=== PATIENT | female | born 1995 | race Two or more races ===

== ENCOUNTER 2022-02-28 00:49 | Emergency (ER) | payer OTHER, SELFPAY ==
--- NOTE | ~2022-02-28 | CT_ITS ---
EXAMINATION: CT ABDOMEN AND PELVIS WITHOUT CONTRAST CLINICAL INFORMATION: Left flank pain COMPARISON: 03/25/2017 TECHNIQUE: Multidetector volumetric imaging was performed from the superior aspect of the liver through the pubic symphysis. Sagittal and coronal reformatted images were obtained on the technologist's workstation. This CT examination was performed using dose optimization techniques as appropriate, variously including the following: *Automated exposure control *Adjustment of mA and/or kV according to patient size (this includes techniques or standardized protocols for targeted exams where dose is matched to indication/reason for exam; i.e. extremities or head) *Use of iterative reconstruction technique DLP: 616 mGy-cm FINDINGS: LUNG BASES: The visualized lung bases are unremarkable. LIVER, GALLBLADDER, AND BILIARY TREE: The liver is normal in size, shape, and attenuation. No focal hepatic lesion or biliary ductal dilatation is present. Cholecystectomy. PANCREAS: Unremarkable. SPLEEN: Unremarkable. ADRENAL GLANDS: Unremarkable. KIDNEYS AND URETERS: The kidneys are normal in size, shape, and attenuation. No hydronephrosis or hydroureter. Multiple bilateral nonobstructive intrarenal calculi redemonstrated numbering at least 3 within the left kidney and fall within the right kidney ranging in size from punctate to 2 mm.. No perinephric stranding. BLADDER: Unremarkable. GASTROINTESTINAL TRACT: The small and large bowel are unremarkable. Appendectomy. ABDOMINAL WALL: No significant hernia is appreciated. LYMPH NODES: Normal. VASCULAR: Unremarkable. PELVIC VISCERA: Uterus and ovaries unremarkable. OSSEOUS STRUCTURES: No acute or suspicious osseous abnormalities. CT/CT abdomen pelvis wo IV con IMPRESSION: * No acute findings within the abdomen or pelvis to explain the patient's symptomatology. * Bilateral nonobstructive intrarenal calculi, however no ureteral calculi or hydronephrosis. * Cholecystectomy and appendectomy.
[2022-02-28 01:05] VITALS: BP 120/73; PULSE 76; RESP 20; TEMP 36.8; O2SAT 98; BMI 31.7
[2022-02-28 03:18] LABS: Basophils Percent Auto 0.3 % (0-2); Eosinophils Percent Auto 0.3 % (0-4); Hematocrit 37.8 % (37.0-47.0); Hemoglobin 12.4 g/dl (12.0-16.0); Imm Gran Abs Auto 0.02 X10*3/uL (0.00-0.03); Imm Gran Pct Auto 0.2 % (0.0-0.4); Lymphocytes Absolute Auto 1.2 X10*3/uL (1.2-4.9); Lymphocytes Percent Auto 12.8 % (20-40); MANUAL DIFF FLAG NO; Mean Corpuscular HGB Conc 32.8 g/dl (31.0-35.0); Mean Corpuscular Hemoglobin 28.9 pg (27.0-33.0); Mean Corpuscular Volume 88.1 fL (80.0-98.0); Mean Platelet Volume 9.2 fL (9.4-12.3); Monocytes Absolute Auto 0.4 X10*3/uL (0.1-1.2); Monocytes Percent Auto 4.6 % (2-11); Neutrophils Absolute Auto 7.7 x10*3/uL (2.0-8.3); Neutrophils Percent Auto 81.8 % (45-73); Platelet Count 319 X10*3/uL (160-400); Red Blood Count 4.29 X10*6/uL (4.20-5.50); Red Cell Distribution Width 12.6 % (11.0-16.0); White Blood Count 9.4 X10*3/uL (4.8-10.8)
[2022-02-28 03:20] LABS: Appearance Urine Cloudy; Color Urine Yellow; Glucose Urine UA Negative (Negative); Leukocyte Esterase Urine Moderate (2+) (Negative); Nitrite Urine Negative (Negative); Specific Gravity - Urine 1.025 (1.005-1.025); UMIC TRIGGER UACC YES; Urine Blood Large (3+) (Negative); Urine Ketones Negative (Negative); Urine Protein 100 (2+) mg/dL (Neg-Trace)
[2022-02-28 03:21] LABS: UPreg QC Valid YES; Urine Pregnancy NEGATIVE (NEGATIVE)
[2022-02-28 03:25] LABS: Bacteria Urine 4+ (None Seen); UACC Culture Trigger YES; WBC Urine 21-50 /HPF (0-5)
[2022-02-28 03:31] LABS: Anion Gap 12 (12-20); Blood Urea Nitrogen 12 mg/dL (9-16); Calcium 9.3 mg/dL (8.4-10.2); Carbon Dioxide 24 mmol/L (22-29); Chloride 106 mmol/L (96-108); Creatinine Clr Calc Pharmacy 96.2; Estimated Glomerular Filt Rate > 60; Glucose Random 121 mg/dL (60-115); Potassium 3.7 mmol/L (3.3-5.1); Sodium 138 mmol/L (135-145)
[2022-02-28 04:03] VITALS: BP 120/75; PULSE 87; RESP 16; TEMP 36.9; O2SAT 99
--- NOTE | 2022-02-28 04:20 | ED_ITS ---
HPI - Female Genitourinary General Chief complaint: Urogenital-Female Stated complaint: Flank pain/?Kidney stones Time Seen by Provider: 02/28/22 03:59 Source: patient Mode of arrival: ambulatory Limitations: no limitations History of Present Illness HPI Narrative: 26-year-old female history of kidney stone came in for evaluation of left flank pain since yesterday, that is constant and severe 10/10 localized to the left flank area radiates down to the left groin area, associated with nausea, no relieving factor, no aggravating factor. Patient had similar pain when she had a kidney stone, patient never needed surgical intervention for kidney stones in the past. Surgical history is significant for appendectomy and cholecystectomy. Related Data Previous Rx's Medication Instructions Recorded levofloxacin 750 mg tablet 750 mg PO DAILY #10 tabs 02/28/22 phenazopyridine 100 mg tablet 100 mg PO TID #6 tabs 02/28/22 (Pyridium) Allergies Allergy/AdvReac Type Severity Reaction Status Date / Time nitrofurantoin Allergy Unknown RASH Verified 02/28/22 01:09 [From MACROBID] macrobid Allergy Unknown Rash Uncoded 02/28/22 01:09 Review of Systems Review of Systems: All other systems are reviewed and are negative Constitutional: Reports as per HPI and Reports no additional constitutional complaints Eyes: Reports as per HPI and Reports no additional eye complaints Reports system reviewed and no additional complaints, except as documented Cardiovascular: Reports as per HPI and Reports no additional cardiovascular complaints Respiratory: Reports as per HPI and Reports no additional respiratory complaints Gastrointestinal: Reports as per HPI and Reports no additional gastrointestinal complaints Genitourinary: Reports no additional female genitourinary complaints Musculoskeletal: Reports no additional musculoskeletal complaints Skin/Breast: Reports system reviewed and no additional complaints, except as docu Psychiatric: Reports no additional psychiatric complaints Endocrine: Reports no additional endocrine complaints Hematologic/Lymphatic: Reports no additional hematologic/lymphatic complaints Allergic/Immunologic: Reports no additional allergic/immunologic complaints Reports system reviewed and no additional complaints, except as documented and Reports Abnormal speech present [facility] Social History Social History Advance Directives: No Advance Directives Information Provided: No Physical Exam Vital Signs: Vital Signs: Last Vital Signs Temp 98.4 F 02/28/22 04:03 Pulse 87 02/28/22 04:03 Resp 16 02/28/22 04:03 BP 120/75 02/28/22 04:03 Pulse Ox 99 02/28/22 04:03 O2 Del Method 02/28/22 04:03 BMI result Body Mass Index 31.7 Vital signs have been reviewed as appeared to be correct. Blood pressure normal. Heart rate normal. Respiration rate normal. Temperature normal. O xygen saturation normal. Appearance: Alert. Oriented X3. No acute distress. Head: Normal external exam. Normocephalic. Atraumatic. No Dejesus signs noted. No raccoon eyes noted Eyes: PERRLA. EOMI. Conjunctiva and sclera normal. Eyelids normal. ENT: TM's Normal. Pharynx normal. Uvula midline. Moist mucous membranes. No trismus noted. No drooling noted. No muffled voice noted. Neck: Normal inspection. Neck supple. FROM. No adenopathy. Thyroid Normal. No meningeal signs. No neck mass noted. CVS: Normal heart rate and rhythm. Heart sound normal. No murmurs noted. Pulses normal throughout. Respiratory: No respiratory distress. Painless inspiration. Breath sounds normal. No wheezes/rales/rhonchi noted. Chest nontender. No accessory muscle usage noted or decreased air movement noted. Abdomen: Soft and nontender. Bowel sounds normal in all 4 quadrants. No dis tention noted. No organomegaly noted. No visible injury noted. Back: Left CVA tenderness. Full range of motion noted. Skin: Skin warm and dry. Normal skin color. Normal skin turgor. No rashes/l esions/lacerations noted. Extremities: No lower extremity edema. Extremities exhibit normal range of motion. Extremities nontender. Neuro: Oriented X 3. Cranial nerve exam: II-XII are grossly intact No motor deficit. No sensory deficit. Reflexes normal. Course Course Course Narrative: 26-year-old female came in with left flank pain, no fever or chills, CT showing no kidney stones UA is revealing UTI patient with pyelonephritis will start the patient on Levaquin/by medium and instructed to drink plenty of fluid and follow-up with PCP. Medications Administered Discontinued Medications Generic Name Dose Route Start Last Admin Trade Name Freq PRN Reason Stop Dose Admin Sodium Chloride 1,000 mls @ 999 mls/hr 02/28/22 04:19 02/28/22 04:59 Ns IV 02/28/22 05:19 999 mls/hr .Q1H1M ONE Administration Ketorolac Tromethamine 30 mg 02/28/22 04:19 02/28/22 04:59 Ketorolac Tromethamine 30 Mg/Ml Vial IVPUSH 02/28/22 04:20 30 mg ONCE ONE Administration Morphine Sulfate 2 mg 02/28/22 04:19 02/28/22 04:59 Morphine Sulfate 2 Mg/Ml Cartridge IVPUSH 02/28/22 04:20 2 mg ONCE ONE Administration Protocol Ondansetron HCl 4 mg 02/28/22 04:19 02/28/22 04:59 Ondansetron Hcl 4 Mg/2 Ml Vial IVPUSH 02/28/22 04:20 4 mg ONCE ONE Administration Medical Decision Making Differential Diagnosis Differential Diagnoses: The differential diagnosis associated with the presentation includes (Nephrolithiasis/renal colic/pyelonephritis.) Lab Data MDM Lab Attestation statement: I reviewed the patient's lab results. Result Diagrams: 02/28/22 03:13 02/28/22 03:13 Labs: Lab Results 02/28/22 02/28/22 02/28/22 Range/Units 03:13 03:13 03:13 WBC 9.4 (4.8-10.8) X10*3/uL RBC 4.29 (4.20-5.50) X10*6/uL Hgb 12.4 (12.0-16.0) g/dl Hct 37.8 (37.0-47.0) % MCV 88.1 (80.0-98.0) fL MCH 28.9 (27.0-33.0) pg MCHC 32.8 (31.0-35.0) g/dl RDW 12.6 (11.0-16.0) % Plt Count 319 (160-400) X10*3/uL MPV 9.2 L (9.4-12.3) fL Immature Gran % (Auto) 0.2 (0.0-0.4) % Neut % (Auto) 81.8 H (45-73) % Lymph % (Auto) 12.8 L (20-40) % [place] % (Auto) 4.6 (2-11) % Eos % (Auto) 0.3 (0-4) % Baso % (Auto) 0.3 (0-2) % Lymph # (Auto) 1.2 (1.2-4.9) X10*3/uL [place] # (Auto) 0.4 (0.1-1.2) X10*3/uL Eos # (Auto) 0.0 (0.0-0.4) X10*3/uL Baso # (Auto) 0.0 (0.0-0.2) X10*3/uL Abs Immat Gran (auto) 0.02 (0.00-0.03) X10*3/uL Absolute Neuts (auto) 7.7 (2.0-8.3) x10*3/uL Absolute Nucleated RBC 0.000 (0.0-0.012) X10*3/uL Nucleated RBC % (auto) 0.0 (0.0-0.2) /100WBC Sodium 138 (135-145) mmol/L Potassium 3.7 (3.3-5.1) mmol/L Chloride 106 (96-108) mmol/L Carbon Dioxide 24 (22-29) mmol/L Anion Gap 12 (12-20) BUN 12 (9-16) mg/dL Creatinine 0.82 (0.5-1.4) mg/dL Estim Creat Clear Calc 96.2 Estimated GFR > 60 Random Glucose 121 H (60-115) mg/dL Calcium 9.3 (8.4-10.2) mg/dL Urine Color Yellow Urine Appearance Cloudy Urine pH 6.0 (5.0-9.0) Ur Specific [place] 1.025 (1.005-1.025) Urine Protein 100 (2+) H (Neg-Trace) mg/dL Urine Glucose (UA) Negative (Negative) mg/dL Urine Ketones Negative (Negative) mg/dL Urine Blood Large (3+) H (Negative) Urine Nitrite Negative (Negative) Ur Leukocyte Esterase Moderate (2+) H (Negative) Urine RBC 6-10 H (0-2) /HPF Urine WBC 21-50 H (0-5) /HPF Ur Squamous Epith Cells 11-20 (0-2) /HPF Urine Bacteria 4+ (None Seen) Hyaline Casts 3-5 (0-2) /LPF Urine Test (NEGATIVE) 02/28/22 Range/Units 03:13 WBC (4.8-10.8) X10*3/uL RBC (4.20-5.50) X10*6/uL Hgb (12.0-16.0) g/dl Hct (37.0-47.0) % MCV (80.0-98.0) fL MCH (27.0-33.0) pg MCHC (31.0-35.0) g/dl RDW (11.0-16.0) % Plt Count (160-400) X10*3/uL MPV (9.4-12.3) fL Immature Gran % (Auto) (0.0-0.4) % Neut % (Auto) (45-73) % Lymph % (Auto) (20-40) % [place] % (Auto) (2-11) % Eos % (Auto) (0-4) % Baso % (Auto) (0-2) % Lymph # (Auto) (1.2-4.9) X10*3/uL [place] # (Auto) (0.1-1.2) X10*3/uL Eos # (Auto) (0.0-0.4) X10*3/uL Baso # (Auto) (0.0-0.2) X10*3/uL Abs Immat Gran (auto) (0.00-0.03) X10*3/uL Absolute Neuts (auto) (2.0-8.3) x10*3/uL Absolute Nucleated RBC (0.0-0.012) X10*3/uL Nucleated RBC % (auto) (0.0-0.2) /100WBC Sodium (135-145) mmol/L Potassium (3.3-5.1) mmol/L Chloride (96-108) mmol/L Carbon Dioxide (22-29) mmol/L Anion Gap (12-20) BUN (9-16) mg/dL Creatinine (0.5-1.4) mg/dL Estim Creat Clear Calc Estimated GFR Random Glucose (60-115) mg/dL Calcium (8.4-10.2) mg/dL Urine Color Urine Appearance Urine pH (5.0-9.0) Ur Specific [place] (1.005-1.025) Urine Protein (Neg-Trace) mg/dL Urine Glucose (UA) (Negative) mg/dL Urine Ketones (Negative) mg/dL Urine Blood (Negative) Urine Nitrite (Negative) Ur Leukocyte Esterase (Negative) Urine RBC (0-2) /HPF Urine WBC (0-5) /HPF Ur Squamous Epith Cells (0-2) /HPF Urine Bacteria (None Seen) Hyaline Casts (0-2) /LPF Urine Test NEGATIVE (NEGATIVE) Independent Interpretation I performed an independent interpretation of an: CT Scan (Abdomen and pelvis: No acute pathology.) Radiology Impression Discussion of test interpretation with radiology: I have reviewed the radiologist's reading. Discharge Plan Discharge Clinical Impression: Urinary tract infection, Pyelonephritis Patient Disposition: Home, Self-Care Instructions: Urinary Tract Infection in Women (ED) Additional Instructions: Drink plenty of fluids Prescriptions: New levofloxacin 750 mg tablet 750 mg PO DAILY Qty: 10 0RF phenazopyridine [Pyridium] 100 mg tablet 100 mg PO TID Qty: 6 0RF
[2022-02-28] MEDS: ondansetron HCL 4 MG/2 ML VIAL IVPUSH (04:59)
[2022-02-28] MEDS: Morphine Sulfate 2 MG/ML CARTRIDGE IVPUSH (04:59)
[2022-02-28] MEDS: 0.9 % Sodium Chloride 1,000 ML 999 ML IV (04:59)
[2022-02-28] MEDS: Ketorolac Tromethamine 30 MG/ML VIAL IVPUSH ×2 (04:59→06:45)
[2022-02-28 06:17] VITALS: BP 118/60; PULSE 80; RESP 16; TEMP 37.1; O2SAT 98
== END 2022-02-28 06:48 | disposition home or self-care (01) ==
PROVIDERS: Emergency Provider Emergency Medicine
DX: N39.0 Urinary tract infection, site not specified (principal); N10 Acute pyelonephritis; Z79.899 Other long term (current) drug therapy
CPT/HCPCS: 36415; 74176; 80048; 81001; 81025; 85025; 87086; 96374; 96375; 96376; 99284; J1885; J2270; J2405

== ENCOUNTER 2023-01-15 14:12 | Outpatient (AMB) | payer MEDICAID, SELFPAY ==
--- NOTE | 2023-01-15 14:30 | MHC.OFFVIS ---
Intake Intake Visit Reasons: nephrolithiasis Intake Note: NEW Patient presents today to established treatment for Nephrolithiasis: Meds- None Allergies to Antibiotic- Macrobid Blood Thinner- None Ship Pilot Required: No Accompanied by: Self / Same As Patient Allergies nitrofurantoin [From MACROBID] Allergy (Unknown, Verified 01/21/23 07:41) RASH macrobid Allergy (Unknown, Uncoded 01/15/23 14:53) Rash Medication List - Last Reconciled 01/15/23 by Rohan Langford MD naproxen 500 mg PO BID oxycodone-acetaminophen 5-325 mg (Percocet) 1 tab PO .q6-q8h PRN tamsulosin (Flomax) 0.4 mg PO DAILY HPI HPI Comments History of Present Illness Details Shira is a 27-year-old female who presents today to the office to establish as a new patient for an evaluation of nephrolithiasis. 01/15/2023-- She is here today for an evaluation of kidney stones. I reviewed the CAT scan of the abdomen/pelvis results from 02/28/2022 revealed bilateral non obstructive intrarenal calculi; no hydronephrosis; stone size punctuate upto 2 mm. She states that she is consuming adequate amount of fluids. Patient states that she went to ER at [facility] when she was having left flank pain and they told that she was passing the stones. A CAT scan and US was done at that time and they told to follow-up [facility] urology at that time. Patient states that she started getting kidney stones at age 12. She has a family history of kidney stones in her father. I will obtain the imaging through the office staff to review. Plan: Diet modification . Diet sheet was given to the patient. 24-hour collection was ordered. Ordered Percocet 5.325 mg 6 tablets. Flomax 0.4 mg 30 tablets was ordered. Naproxen 500 mg 20 tablets was ordered. Review of Systems Const All systems reviewed & are unremarkable except as noted in HPI and below Reports no additional complaints Eyes Reports no additional complaints ENT Reports no additional complaints Card Denies dyspnea Resp Denies cough and Denies dyspnea GI Reports no additional complaints Reports no additional complaints Musc Reports no additional complaints Skin/Breast Denies rash and Denies unusual bruising Neuro Reports no additional complaints Psych Reports no additional complaints Endo Reports no additional complaints Javier/Lymph Reports no additional complaints Aller/Immun Reports no additional complaints Physical Exam Const General: cooperative, healthy appearing and no acute distress Orientation/consciousness: patient oriented x3 HEENT Head: Yes normal to inspection, Yes normocephalic and Yes atraumatic Eyes Conjunctivae: conjunctivae normal Neck Neck: Yes normal visual inspection and Yes trachea midline Chest Chest palpation & inspection: normal inspection of the chest Resp Effort & Inspection: normal respiratory effort Cardio Rate: regular rate GI Inspection: Yes normal to inspection Skin General skin exam: no rashes or lesions noted Neuro General: patient oriented x3 Extrem General: No edema Psych Appearance: grossly normal Results AMB Urinalysis, Automated UA Leukoctes 0 Kevon/uL Last Edit by OSCAR Acosta on 01/15/23 15:07 UA Nitrite Negative Last Edit by Sandra Azul Daniel on 01/15/23 15:07 UA Urobilinogen 0.2 mg/dL Last Edit by OSCAR Acosta on 01/15/23 15:07 UA Protein 15 mg/dL Last Edit by Sandra Azul Daniel on 01/15/23 15:07 UA pH 7.5 Last Edit by OSCAR Acosta on 01/15/23 15:07 UA Blood 0 Yefri/uL Last Edit by Sandra Azul Daniel on 01/15/23 15:07 UA Specific [place] 1.015 Last Edit by Sandra Azul Daniel on 01/15/23 15:07 UA Ketone Negative Last Edit by OSCAR Acosta on 01/15/23 15:07 UA Bilirubin 0 mg/dL Last Edit by Sandra Azul [facility] on 01/15/23 15:07 UA Glucose 0 mg/dL Last Edit by Sandra Azul Daniel on 01/15/23 15:07 Results Reviewed Results Reviewed: Laboratory Last Values Urine pH (Auto) 7.5 01/15/23 15:06 Specific [place] (Auto) 1.015 01/15/23 15:06 Urine Protein (Auto) 15 mg/dL 01/15/23 15:06 Glucose (UA)(Auto) 0 mg/dL 01/15/23 15:06 Urine Ketones (Auto) Negative 01/15/23 15:06 Urine Blood (Auto) 0 Yefri/uL 01/15/23 15:06 Urine Nitrite (Auto) Negative 01/15/23 15:06 Urine Bilirubin (Auto) 0 mg/dL 01/15/23 15:06 Urine Urobilinogen (Auto) 0.2 mg/dL 01/15/23 15:06 Leukocyte Esterase (Auto) 0 Kevon/uL 01/15/23 15:06 Date of Service: 02/28/22 EXAMINATION: CT ABDOMEN AND PELVIS WITHOUT CONTRAST CLINICAL INFORMATION: Left flank pain COMPARISON: 03/25/2017 FINDINGS: LUNG BASES: The visualized lung bases are unremarkable. LIVER, GALLBLADDER, AND BILIARY TREE: The liver is normal in size, shape, and attenuation. No focal hepatic lesion or biliary ductal dilatation is present. Cholecystectomy. PANCREAS: Unremarkable. SPLEEN: Unremarkable. ADRENAL GLANDS: Unremarkable. KIDNEYS AND URETERS: The kidneys are normal in size, shape, and attenuation. No hydronephrosis or hydroureter. Multiple bilateral nonobstructive intrarenal calculi redemonstrated numbering at least 3 within the left kidney and fall within the right kidney ranging in size from punctate to 2 mm.. No perinephric stranding. BLADDER: Unremarkable. GASTROINTESTINAL TRACT: The small and large bowel are unremarkable. Appendectomy. ABDOMINAL WALL: No significant hernia is appreciated. LYMPH NODES: Normal. VASCULAR: Unremarkable. PELVIC VISCERA: Uterus and ovaries unremarkable. OSSEOUS STRUCTURES: No acute or suspicious osseous abnormalities. IMPRESSION: * No acute findings within the abdomen or pelvis to explain the patient's symptomatology. * Bilateral nonobstructive intrarenal calculi, however no ureteral calculi or hydronephrosis. * Cholecystectomy and appendectomy Assessment & Plan Assessment & Plan (1) Nephrolithiasis: Code(s): N20.0 - Calculus of kidney (2) Left flank pain: Code(s): R10.9 - Unspecified abdominal pain (3) Renal colic: Code(s): N23 - Unspecified renal colic Plan Diet modification . Diet sheet was given to the patient. 24-hour collection was ordered. Ordered Percocet 5.325 mg 6 tablets. Flomax 0.4 mg 30 tablets was ordered. Naproxen 500 mg 20 tablets was ordered. Orders: Orders AMB Urinalysis Automated 01/15/23 Z13.9 - Encounter for screening, unspecified Medications: New oxycodone-acetaminophen 5-325 mg (Percocet) Partial Fill upon patient request. 1 tab PO .q6-q8h PRN 6 tabs 0RF pain tamsulosin (Flomax) 0.4 mg PO DAILY 30 caps 0RF to help pass stones naproxen 500 mg PO BID 20 tabs 1RF pain Patient Instructions: The patient had an opportunity to ask questions regarding treatment plan. All questions were answered. Imaging, Laboratory studies and physical exam results were discussed and reviewed in detail. No major barriers to understanding were identified. The patient expressed understanding and agreement with the above treatment plan. The patient is aware they should contact our office by phone for worsening of their current condition or the appearance of new symptoms. Compliance is encouraged with any medications and followup testing that is ordered. It is a privilege to be allowed the opportunity to participate in the urologic care of your patient. If you have any questions or concerns regarding treatment for the above conditions please do not hesitate to contact me. The office telephone contact is [phone]. This note is constructed in part using voice recognition software. While every effort has been made to ensure accuracy green chain off bearer errors may have been included. Yours sincerely, Rohan Langford MD Coding Level of Care Code New Pt Level 4 (64593) Diagnoses Nephrolithiasis N20.0 Left flank pain R10.9 Renal colic N23
== END 2023-01-15 15:23 | disposition home or self-care (01) ==
PROVIDERS: PCP Physician Assistant; Visit Provider Urology
DX: N20.0 Calculus of kidney (principal); N23 Unspecified renal colic
CPT/HCPCS: 99204

== ENCOUNTER → 2023-01-15 14:12 | Outpatient (BNVA) | payer MEDICAID, SELFPAY | PROVIDERS: PCP Physician Assistant; Visit Provider Urology | DX: N20.0 Calculus of kidney (principal); N23 Unspecified renal colic; R10.9 Unspecified abdominal pain | CPT/HCPCS: 81003; 99202 ==

== ENCOUNTER 2023-01-21 07:36 | Emergency (ER) | payer MEDICAID, SELFPAY ==
--- NOTE | ~2023-01-21 | CT_ITS ---
EXAMINATION: CT ABDOMEN AND PELVIS WITHOUT CONTRAST CLINICAL INFORMATION: Left-sided pain. COMPARISON: None available. TECHNIQUE: Multidetector volumetric imaging was performed from the superior aspect of the liver through the pubic symphysis. Sagittal and coronal reformatted images were obtained on the technologist's workstation. This CT examination was performed using dose optimization techniques as appropriate, variously including the following: *Automated exposure control *Adjustment of mA and/or kV according to patient size (this includes techniques or standardized protocols for targeted exams where dose is matched to indication/reason for exam; i.e. extremities or head) *Use of iterative reconstruction technique DLP: 596 mGy-cm FINDINGS: LUNG BASES: The visualized lung bases are unremarkable. LIVER, GALLBLADDER, AND BILIARY TREE: The liver is normal in size, shape, and attenuation. No focal hepatic lesion or biliary ductal dilatation is present. There has been a prior cholecystectomy. PANCREAS: Unremarkable. SPLEEN: Unremarkable. ADRENAL GLANDS: Unremarkable. KIDNEYS AND URETERS: There are multiple scattered left renal calculi measuring up to 4 mm mid pole left kidney. There is also a 2 mm right lower pole renal calculus. There is no hydronephrosis or hydroureter. BLADDER: Unremarkable. GASTROINTESTINAL TRACT: The small and large bowel are unremarkable. The appendix is not identified. Surgical clips along the base of the cecum probably related to prior appendectomy. ABDOMINAL WALL: No significant hernia is appreciated. LYMPH NODES: Normal. VASCULAR: Unremarkable. PELVIC VISCERA: Unremarkable. OSSEOUS STRUCTURES: Unremarkable. CT/CT abdomen pelvis wo IV con IMPRESSION: Bilateral nonobstructing renal calculi. No current evidence for hydronephrosis or hydroureter. Fleischner guidelines were followed.
[2023-01-21 07:41] VITALS: BP 142/89; PULSE 89; RESP 18; TEMP 36.4; O2SAT 96; BMI 35.3
[2023-01-21 07:59] LABS: MANUAL DIFF FLAG NO
[2023-01-21 08:03] LABS: Basophils Percent Auto 0.5 % (0-2); Eosinophils Absolute Auto 0.1 X10*3/uL (0.0-0.4); Eosinophils Percent Auto 1.1 % (0-4); Hematocrit 37.4 % (37.0-47.0); Hemoglobin 12.4 g/dl (12.0-16.0); Imm Gran Abs Auto 0.03 X10*3/uL (0.00-0.03); Imm Gran Pct Auto 0.3 % (0.0-0.4); Lymphocytes Absolute Auto 1.8 X10*3/uL (1.2-4.9); Lymphocytes Percent Auto 20.3 % (20-40); Mean Corpuscular HGB Conc 33.2 g/dl (31.0-35.0); Mean Corpuscular Hemoglobin 28.6 pg (27.0-33.0); Mean Corpuscular Volume 86.2 fL (80.0-98.0); Mean Platelet Volume 9.3 fL (9.4-12.3); Monocytes Absolute Auto 0.5 X10*3/uL (0.1-1.2); Monocytes Percent Auto 5.3 % (2-11); Neutrophils Absolute Auto 6.4 x10*3/uL (2.0-8.3); Neutrophils Percent Auto 72.5 % (45-73); Platelet Count 321 X10*3/uL (160-400); Red Blood Count 4.34 X10*6/uL (4.20-5.50); Red Cell Distribution Width 13.4 % (11.0-16.0); White Blood Count 8.8 X10*3/uL (4.8-10.8)
[2023-01-21 08:04] LABS: Appearance Urine Cloudy; Color Urine Yellow; Glucose Urine UA Negative (Negative); Leukocyte Esterase Urine Trace (Negative); Nitrite Urine Negative (Negative); PH 8.5 (5.0-9.0); UMIC TRIGGER UACC YES; Urine Blood Small (1+) (Negative); Urine Ketones Negative (Negative); Urine Protein Trace mg/dL (Neg-Trace)
[2023-01-21 08:07] LABS: Bacteria Urine 1+ (None Seen); Hyaline Casts Urine 0-2 /LPF (0-2); RBC Urine >20 /HPF (0-2); UACC Culture Trigger YES
[2023-01-21 08:18] LABS: Alanine Aminotransferase 13 U/L (0-31); Albumin Level 4.2 g/dL (3.5-5.0); Alkaline Phosphatase 97 U/L (39-117); Anion Gap 11 (12-20); Aspartate Amino Transferase 15 U/L (5-31); Bilirubin Total 0.3 mg/dL (0.0-1.0); Blood Urea Nitrogen 8 mg/dL (9-16); Calcium 9.2 mg/dL (8.4-10.2); Carbon Dioxide 24 mmol/L (22-29); Chloride 109 mmol/L (96-108); Creatinine Clr Calc Pharmacy 108.8; Estimated Glomerular Filt Rate > 60; Glucose Random 107 mg/dL (60-115); Potassium 3.6 mmol/L (3.3-5.1); Sodium 140 mmol/L (135-145); Total Protein 7.4 g/dL (6.5-8.0)
[2023-01-21 11:16] VITALS: BP 122/79; PULSE 79; RESP 11; TEMP 36.8; O2SAT 100
--- NOTE | 2023-01-21 12:28 | ED.ABDPAIN ---
HPI - Abdominal Pain General Chief Complaint: Abdominal Pain Stated Complaint: Kidney Stone Pain Vomiting Time Seen by Provider: 01/21/23 10:56 Source: patient Mode of arrival: ambulatory Limitations: no limitations History of Present Illness HPI narrative: 27 year old female with pmhx significant for nephrolithasis and pyelonephritis presents to the ED today with complaint of left flank pain and hematuria x2 days. Reports left flank pain with radiation into her left groin. States this feels like her typical kidney stone. Has been taking oxycodone and tamsulosin without relief of symptoms. Denies injury or trauma to the area. Denies anorexia, headache, dizziness, fever, chills, chest pain, shortness of breath, abdominal pain, nausea / vomiting, diarrhea, constipation, dysuria, vaginal discharge. No sick contacts. No recent travel. Last BM this morning. Reports history of nephrolithiasis. Currently follows with Dr. Langford at [facility]. First appointment was 7 days ago. She was placed on daily Tamsulosin and oxycodone which she has been taking daily without relief. She has now run out of her oxycodone. Last dose was yesterday. Additionally complaints of indigestion. Denies chest pain or SOB. Related Data Previous Rx's Medication Instructions Recorded naproxen 500 mg tablet 500 mg PO BID pain #20 tabs 01/15/23 oxycodone-acetaminophen 5 mg-325 1 tab PO .q6-q8h PRN pain #6 tabs 01/15/23 mg tablet (Percocet) tamsulosin 0.4 mg capsule (Flomax) 0.4 mg PO DAILY to help pass 01/15/23 stones #30 caps cefuroxime axetil 250 mg tablet 250 mg PO BID 7 days #14 tabs 01/21/23 Allergies Allergy/AdvReac Type Severity Reaction Status Date / Time nitrofurantoin Allergy Unknown RASH Verified 01/21/23 07:41 [From MACROBID] macrobid Allergy Unknown Rash Uncoded 01/15/23 14:53 Review of Systems Review of Systems Constitutional: No fever, chills, fatigue, night sweats, weight changes ENT/Mouth: No ear pain, hearing loss, nasal congestion, sinus pain, rhinorrhea, sore throat Eyes: No eye pain, swelling, redness, vision changes, discharge Cardio: No chest pain, palpitations, BELL, orthopnea, peripheral edema Pulm: No SOB, cough, sputum, wheezing, dyspnea, hemoptysis GI: No nausea, vomiting, hematemesis, abdominal pain, diarrhea, constipation, hematochezia, melena : No irregular bleeding, dysuria, frequency, urgency, hesitancy, + hematuria, +left flank pain, No urinary flow changes, urinary incontinence or retention MSK: No back pain, neck pain, joint pain, myalgias Skin: No lesions, rashes Neuro: No weakness, numbness, paresthesias, LOC, dizziness, headache All other systems reviewed and are negative. [facility] Past Medical History Attestation statement: The following information was validated with the patient. Source: old records reviewed and nursing notes reviewed Physical Exam ED Vital Signs: Vital Signs - 24 hr 01/21/23 07:41 01/21/23 11:16 01/21/23 15:53 Temperature 97.6 F 98.2 F Pulse Rate 89 79 66 Respiratory Rate 18 11 L 12 Blood Pressure 142/89 H 122/79 116/70 Pulse Oximetry 96 100 100 Oxygen Delivery Method Room Air Room Air Room Air BMI result Body Mass Index 35.3 Vital signs stable Const Other: + patient sitting comfortably in bed. General: cooperative, healthy appearing, comfortable, no acute distress, alert and awake Orientation/consciousness: patient oriented x3 Limitations: no limitations HENMT Mouth: Normal oral and palatal mucosa present and moist mucous membranes Eyes General: appearance normal, both eyes and all related structures Conjunctivae: conjunctivae normal Sclerae: sclerae normal Pupils: Equal, round and reactive pupils present EOM: EOMs intact bilaterally Neck Neck: Yes normal visual inspection, Yes full ROM and Yes no lymphadenopathy Chest Chest palpation & inspection: normal inspection of the chest and normal palpation of entire chest wall Resp Effort & Inspection: normal respiratory effort Auscultation: clear to auscultation bilaterally Cardio Rate: regular rate Rhythm: regular rhythm Peripheral pulses: radial pulses present GI Other: + Abdomen soft, nontender to palpation, nondistended, no rebound tenderness or guarding, normoactive bowel sounds x4. There is left-sided CVA tenderness. Inspection: Yes normal to inspection Back/Spine/Pelvis Other: No midline spinous tenderness or step off deformity. No paraspinal muscle tenderness bilaterally. Skin General skin exam: no rashes or lesions noted Neuro General: patient oriented x3, gait normal and moves all extremities Cranial nerves: Yes Equal, round and reactive pupils present Extrem General: Yes normal to inspection and Yes capillary refill normal Course Course Course Narrative: 1458-- CBC without leukocytosis or anemia. Chemistry without acute electrolyte abnormality requiring intervention. Urine showing small amount of blood, trace leukocyte esterase, rbc's wbc's and bacteria > consistent with possible renal stone and urinary tract infection. Afebrile. Urine negative. > Awaiting CT results > GI cocktail given for indigestion > Patient is telling nurse that it her pain cannot be controlled with Toradol. On my exam, patient is not in any acute distress or discomfort. She is sitting comfortably on bed, moving around without pain. I will give her 1 dose of morphine. I do not feel as though stronger pain medication is warranted at this time. 1551-- Patient requesting more pain medication after administration of morphine. > CT abdomen pelvis showing bilateral nonobstructing renal calculi. Otherwise unremarkable. 1557-- On re-evaluation patient states that she still in discomfort. Patient is in no acute distress and exam is unremarkable. Imaging does not show evidence of obstructive uropathy. Labs are unremarkable. I do not feel that management with opioid pain medication is warranted at this time. I offered to send naproxen to her pharmacy however she tells me that she was already prescribed this by Urology and has this at home. Advised her to take naproxen and tamsulosin as directed. Additionally patient's urine is positive for urinary tract infection. Will send antibiotic to her pharmacy. Advised her to take this over the next 7 days. Discussed strict return precautions. All questions answered at this time. Patient is agreeable with disposition stable for discharge. Medical Decision Making Medical Decision Making [facility] Narrative: 27 year old female with pmhx significant for nephrolithasis and pyelonephritis presents to the ED today with complaint of left flank pain and hematuria x2 days. Vital signs stable, afebrile. Patient is lying comfortably in bed. Nontoxic appearing, in no acute distress. There is left-sided CVA tenderness. Abdomen is soft, nontender, nondistended, no rebound tenderness or guarding. No hepatosplenomegaly. Normoactive bowel sounds x4. No midline spinous tenderness. No paraspinal muscle tenderness bilaterally. Clinical concern for nephrolithiasis, renal colic, urinary tract infection, msk sprain/strain. Unlikely appendicitis, cholecystitis, pancreatitis, SBO, ischemic bowel, acute abdomen. Unlikely hernia, , ectopic, ovarian cyst or torsion. Plan at this time is to obtain basic labs, UA, CT abdomen pelvis and pain control. Differential Diagnosis Differential Diagnoses: The differential diagnosis associated with the presentation includes As above. Admission/Observation Not indicated. Lab Data MDM Lab Attestation statement: I reviewed the patient's lab results. As above. 01/21/23 07:54 01/21/23 07:54 Labs: Lab Results 01/21/23 Range/Units 07:54 WBC 8.8 (4.8-10.8) X10*3/uL RBC 4.34 (4.20-5.50) X10*6/uL Hgb 12.4 (12.0-16.0) g/dl Hct 37.4 (37.0-47.0) % MCV 86.2 (80.0-98.0) fL MCH 28.6 (27.0-33.0) pg MCHC 33.2 (31.0-35.0) g/dl RDW 13.4 (11.0-16.0) % Plt Count 321 (160-400) X10*3/uL MPV 9.3 L (9.4-12.3) fL Immature Gran % (Auto) 0.3 (0.0-0.4) % Neut % (Auto) 72.5 (45-73) % Lymph % (Auto) 20.3 (20-40) % [place] % (Auto) 5.3 (2-11) % Eos % (Auto) 1.1 (0-4) % Baso % (Auto) 0.5 (0-2) % Lymph # (Auto) 1.8 (1.2-4.9) X10*3/uL [place] # (Auto) 0.5 (0.1-1.2) X10*3/uL Eos # (Auto) 0.1 (0.0-0.4) X10*3/uL Baso # (Auto) 0.0 (0.0-0.2) X10*3/uL Abs Immat Gran (auto) 0.03 (0.00-0.03) X10*3/uL Absolute Neuts (auto) 6.4 (2.0-8.3) x10*3/uL Absolute Nucleated RBC 0.000 (0.0-0.012) X10*3/uL Nucleated RBC % (auto) 0.0 (0.0-0.2) /100WBC Sodium 140 (135-145) mmol/L Potassium 3.6 (3.3-5.1) mmol/L Chloride 109 H (96-108) mmol/L Carbon Dioxide 24 (22-29) mmol/L Anion Gap 11 L (12-20) BUN 8 L (9-16) mg/dL Creatinine 0.76 (0.5-1.4) mg/dL Estim Creat Clear Calc 108.8 Estimated GFR > 60 Random Glucose 107 (60-115) mg/dL Calcium 9.2 (8.4-10.2) mg/dL Total Bilirubin 0.3 (0.0-1.0) mg/dL AST 15 (5-31) U/L ALT 13 (0-31) U/L Alkaline Phosphatase 97 (39-117) U/L Total Protein 7.4 (6.5-8.0) g/dL Albumin 4.2 (3.5-5.0) g/dL Urine Color Yellow Urine Appearance Cloudy Urine pH 8.5 (5.0-9.0) Ur Specific [place] 1.020 (1.005-1.025) Urine Protein Trace (Neg-Trace) mg/dL Urine Glucose (UA) Negative (Negative) mg/dL Urine Ketones Negative (Negative) mg/dL Urine Blood Small (1+) H (Negative) Urine Nitrite Negative (Negative) Ur Leukocyte Esterase Trace H (Negative) Urine RBC >20 H (0-2) /HPF Urine WBC 6-10 H (0-5) /HPF Ur Squamous Epith Cells 11-20 (0-2) /HPF Urine Bacteria 1+ (None Seen) Hyaline Casts 0-2 (0-2) /LPF Urine Test NEGATIVE (NEGATIVE) Independent Interpretation I performed an independent interpretation of an: CT Scan Interpretation: CT abdomen pelvis showing bilateral renal calculi, agree with radiologist's interpretation. Radiology Impression Discussion of test interpretation with radiology: I have reviewed the radiologist's reading. Radiologist Impression: CT abdomen pelvis wo IV con IMPRESSION: Bilateral nonobstructing renal calculi No current evidence for hydronephrosis or hydroureter. Fleischner guidelines were followed. External Record Review External record reviewed: Inpatient record, Office record, Outpatient record, Prior outpatient labs, Prior outpatient radiology, Primary care record and Outside ED record Prescription Management I considered prescription management with: Pain Medication and Antibiotic Chronic Conditions Patient?s care impacted by: Other (nephrolithiasis) Social Determinants Patient?s care significantly limited by Social Determinants of Health including: Other Social Determinant of Health Medications Administered Discontinued Medications Generic Name Dose Route Start Last Admin Trade Name Freq PRN Reason Stop Dose Admin Al Hydroxide/Mg Hydroxide 30 ml 01/21/23 12:36 01/21/23 12:48 Magnesium Hydrox/Alum Hydrox 30 Ml Oral.Susp PO 01/21/23 12:37 30 ml ONCE ONE Administration Belladonna Alkaloids/Phenobarbital 10 ml 01/21/23 12:36 01/21/23 12:48 Phenobarb/Hyoscy/Atropine/Scop 10 Ml Elixir PO 01/21/23 12:37 10 ml ONCE ONE Administration Sodium Chloride 1,000 mls @ 999 mls/hr 01/21/23 12:45 01/21/23 14:00 Ns IV 01/21/23 13:45 Infused .Q1H1M [place] Infusion Ketorolac Tromethamine 30 mg 01/21/23 12:36 01/21/23 12:51 Ketorolac Tromethamine 30 Mg/Ml Vial IVPUSH 01/21/23 12:37 30 mg ONCE ONE Administration Morphine Sulfate 2 mg 01/21/23 14:03 01/21/23 14:36 Morphine Sulfate 2 Mg/Ml Cartridge IVPUSH 01/21/23 14:04 2 mg ONCE ONE Administration Protocol Ondansetron HCl 4 mg 01/21/23 12:36 01/21/23 12:50 Ondansetron Odt 4 Mg Tab.Rapdis TRANSLINGU 01/21/23 12:37 4 mg ONCE ONE Administration Critical Care Time Critical Care Time Critical Care Time: No Discharge Plan Discharge Clinical Impression: Bilateral kidney stones, Urinary tract infection Patient Disposition: Home, Self-Care Instructions: Kidney Stones (ED), Urinary Tract Infection in Women (DC) Additional Instructions: Your lab work today was normal. The CT of your abdomen / pelvis showed stones in both of your kidneys. There is no evidence of obstruction. Your urine showed a small amount of blood which may indicate passing a kidney stone. Continue taking the naproxen that was prescribed to you by Urology. Take this as needed for pain/ discomfort. Continue taking tamsulosin daily. Take this before bed as it may affect your blood pressure. Your urine also was positive for infection. Ceftin is antibiotic that has been sent to your pharmacy. Take this twice a day for the next 7 days for urinary tract infection. Do not stop taking this early or skip any doses as this may cause infection to worsen or return. Please follow-up with your urologist this week. Follow-up with your primary care provider as needed. If your symptoms persist or worsen please return to the emergency department. In the case of an emergency call 911. Prescriptions: New cefuroxime axetil 250 mg tablet 250 mg PO BID 7 Days Qty: 14 0RF No Action oxycodone-acetaminophen [Percocet] 5-325 mg tablet 1 tab PO .q6-q8h PRN (Reason: pain) Qty: 6 0RF Rx Instructions: Partial Fill upon patient request. naproxen 500 mg tablet 500 mg PO BID Qty: 20 1RF tamsulosin [Flomax] 0.4 mg capsule 0.4 mg PO DAILY Qty: 30 0RF Referrals: [facility] [Provider Group] Stand Alone Forms: Work/School Release
[2023-01-21] MEDS: Magnesium Hydrox/Alum Hydrox 30 ML ORAL.SUSP PO (12:48)
[2023-01-21] MEDS: PHENobarb/Hyoscy/Atropine/Scop 10 ML ELIXIR PO (12:48)
[2023-01-21] MEDS: Ondansetron ODT 4 MG TAB.RAPDIS TRANSLINGU (12:50)
[2023-01-21] MEDS: 0.9 % Sodium Chloride 1,000 ML 999 ML IV (12:51)
[2023-01-21] MEDS: Ketorolac Tromethamine 30 MG/ML VIAL IVPUSH (12:51)
[2023-01-21 13:15] LABS: UPreg QC Valid YES; Urine Pregnancy NEGATIVE (NEGATIVE)
[2023-01-21] MEDS: Morphine Sulfate 2 MG/ML CARTRIDGE IVPUSH (14:36)
[2023-01-21 15:53] VITALS: BP 116/70; PULSE 66; RESP 12; O2SAT 100
== END 2023-01-21 16:23 | disposition home or self-care (01) ==
PROVIDERS: Physician Assistant Medical; Emergency Provider Emergency Medicine; PCP Physician Assistant
DX: N39.0 Urinary tract infection, site not specified (principal); N20.0 Calculus of kidney; R10.9 Unspecified abdominal pain; R31.9 Hematuria, unspecified; Z79.899 Other long term (current) drug therapy
CPT/HCPCS: 36415; 74176; 80053; 81001; 81003; 81025; 85025; 87086; 96361; 96374; 96375; 99284; 99285; J1885; J2270

== ENCOUNTER 2023-01-29 14:27 | Outpatient (AMB) | payer MEDICAID, SELFPAY ==
--- NOTE | 2023-01-29 14:28 | A.OFFVIS_ITS ---
Intake Intake Visit Reasons: medication review/ left back pain Intake Note: Patient presents today via phone complaining o severe back pain: Patient stated that the Naproxen is not working. Meds- Naproxen & Flomax Allergies to Antibiotic- Macrobid Blood Thinner- None Microarray Specialist Required: No Accompanied by: Self / Same As Patient Allergies nitrofurantoin [From MACROBID] Allergy (Unknown, Verified 01/21/23 07:41) RASH macrobid Allergy (Unknown, Uncoded 01/15/23 14:53) Rash Medication List - Last Reconciled 01/29/23 by Rohan Langford MD cefuroxime axetil 250 mg PO BID 7 days naproxen 500 mg PO BID ondansetron HCl 8 mg PO Q8H PRN prednisone 20 mg PO DAILY 3 days tamsulosin (Flomax) 0.4 mg PO DAILY tramadol 50 mg PO Q6H PRN HPI HPI Comments History of Present Illness Details Ignacia is a 27-year-old female [facility]. 01/29/2023-- She is followed today for left flank pain. Video attempted She was last seen by me on 01/05/2023 for left flank pain. Patient states that she was prescribed Naproxen during the last visit has not helped her symptoms of flank pain. She states that she is consuming alot of fluids. She was in the ER on 01/21/2023 and has had CAT scan during that time. CAT scan showed a 4 mm left non obstructing kidney stone in the mid kidney and few smaller 2 mm right kidney stones visualized. Review of chart: Last visit: 01/15/2023--She is here today for an evaluation of kidney stones. CTKUB- 01/21/23-multiple scattered left renal calculi measuring up to 4 mm mid pole left kidney. 2 mm right lower pole renal calculus. CTKUB- 02/28/2022 revealed bilateral non obstructive intrarenal calculi; no hydronephrosis; stone size punctuate upto 2 mm. Patient states that she started getting kidney stones at age 12. Family history of kidney stones in her father. 01/29/2023: Plan: Prescribed Prednisone 20 mg for 3 days. Continue Flomax 0.4 mg and advised to take adequate of amount of fluids. Ordered Tramadol 50 mg # 10 tablets. Review of Systems Const All systems reviewed & are unremarkable except as noted in HPI and below Reports no additional complaints Eyes Reports no additional complaints ENT Reports no additional complaints Card Denies dyspnea Resp Denies cough and Denies dyspnea GI Reports no additional complaints Reports no additional complaints Musc Reports no additional complaints Skin/Breast Denies rash and Denies unusual bruising Neuro Reports no additional complaints Psych Reports no additional complaints Endo Reports no additional complaints Javier/Lymph Reports no additional complaints Aller/Immun Reports no additional complaints Results Reviewed Results Reviewed: Date of Service: 01/21/23 EXAMINATION: CT ABDOMEN AND PELVIS WITHOUT CONTRAST CLINICAL INFORMATION: Left-sided pain. COMPARISON: None available. TECHNIQUE: Multidetector volumetric imaging was performed from the superior aspect of the liver through the pubic symphysis. Sagittal and coronal reformatted images were obtained on the technologist's workstation. This CT examination was performed using dose optimization techniques as appropriate, variously including the following: *Automated exposure control *Adjustment of mA and/or kV according to patient size (this includes techniques or standardized protocols for targeted exams where dose is matched to indication/reason for exam; i.e. extremities or head) *Use of iterative reconstruction technique DLP: 596 mGy-cm FINDINGS: LUNG BASES: The visualized lung bases are unremarkable. LIVER, GALLBLADDER, AND BILIARY TREE: The liver is normal in size, shape, and attenuation. No focal hepatic lesion or biliary ductal dilatation is present. There has been a prior cholecystectomy. PANCREAS: Unremarkable. SPLEEN: Unremarkable. ADRENAL GLANDS: Unremarkable. KIDNEYS AND URETERS: There are multiple scattered left renal calculi measuring up to 4 mm mid pole left kidney. There is also a 2 mm right lower pole renal calculus. There is no hydronephrosis or hydroureter. BLADDER: Unremarkable. GASTROINTESTINAL TRACT: The small and large bowel are unremarkable. The appendix is not identified. Surgical clips along the base of the cecum probably related to prior appendectomy. ABDOMINAL WALL: No significant hernia is appreciated. LYMPH NODES: Normal. VASCULAR: Unremarkable. PELVIC VISCERA: Unremarkable. OSSEOUS STRUCTURES: Unremarkable. IMPRESSION: Bilateral nonobstructing renal calculi. No current evidence for hydronephrosis or hydroureter. Assessment & Plan Assessment & Plan (1) Nephrolithiasis: Code(s): N20.0 - Calculus of kidney (2) Left flank pain: Code(s): R10.9 - Unspecified abdominal pain (3) Renal colic: Code(s): N23 - Unspecified renal colic Plan Prescribed Prednisone 20 mg for 3 days. Continue Flomax 0.4 mg and advised to take adequate of amount of fluids. Ordered Tramadol no 10 tablets. Medications: New tramadol 50 mg PO Q6H PRN 10 tabs 0RF pain prednisone 20 mg PO DAILY 3 days 3 tabs 0RF ondansetron HCl 8 mg PO Q8H PRN 30 tabs 0RF nausea and vomiting Refilled tamsulosin (Flomax) 0.4 mg PO DAILY 30 caps 0RF to help pass stones Patient Instructions: The patient had an opportunity to ask questions regarding treatment plan. All questions were answered. Imaging, Laboratory studies and physical exam results were discussed and reviewed in detail. No major barriers to understanding were identified. The patient expressed understanding and agreement with the above treatment plan. The patient is aware they should contact our office by phone for worsening of their current condition or the appearance of new symptoms. Compliance is encouraged with any medications and followup testing that is ordered. It is a privilege to be allowed the opportunity to participate in the urologic care of your patient. If you have any questions or concerns regarding treatment for the above conditions please do not hesitate to contact me. The office telephone contact is [phone]. This note is constructed in part using voice recognition software. While every effort has been made to ensure accuracy lead person errors may have been included. Yours sincerely, Rohan Langford MD Telehealth Telehealth Location of provider rendering services: practice address Location of patient: address on file Patient Identification confirmed using: Name, : Yes Telehealth method: voice only Patient verbally consented to treatment: Yes Patient verbally consented to billing insurance company: Yes Patient informed of any privacy concerns related to visit: Yes Minutes spent on Phone/Video with Pt.: 20 Coding Level of Care Code Tele Est Pt Level 4 (87231) Diagnoses Nephrolithiasis N20.0 Left flank pain R10.9 Renal colic N23
--- OUTSIDE RECORDS SUMMARY | 2023-01-29 14:29 | XMS_ITS | Continuity of Care Document ---
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 Name Role Phone Coco PACHECO, Mikie Mkie Primary Care Physician [place] [facility] [place] - 02/23/[address] [address]- [facility] Attending Physician: Not on Staff, Attending MD Allergies, Adverse Reactions, Alerts Substance Reaction Severity Status Macrobid Active Immunizations Given and Recorded Vaccine Date Status Refusal Reason tetanus/diphtheria/pertussis, acel(Tdap) 11/19/18 Given tetanus/diphtheria/pertussis, acel(Tdap) 03/29/14 Given influenza virus vaccine, inactivated 11/19/18 Give n influenza virus vaccine, inactivated 12/06/13 Give n influenza virus vaccine, inactivated 12/17/11 Give n Medications Colace sodium 100 mg oral capsule 100 mg, 1, capsule, By Mouth, 2 times a day, PRN, # 60 capsule, Refills 0, Tot. Refills 0, Maintenance, for constipation, 11/11/18 14:30:44 EDT, Route to Pharmacy Electronically, [id number], [facility]/pharmacy #[id number] Start Date: 11/11/18 Status: Ordered Dilaudid 2 mg oral tablet 1 tablet = 2 mg, By Mouth, Every 4 hours, PRN as needed for pain, # 35 tablet, 0 Refills, Maintenance, 01/07/19 13:53:09 EST, Tablet, Partial fill upon patient request Start Date: 01/07/19 Status: Ordered docusate-senna 50 mg-187 mg oral tablet 1 tablet, By Mouth, Daily at bedtime, # 60 tablet, 0 Refills, Maintenance, 01/18/19 6:54:44 EST, Tablet, 1 tablet By Mouth Daily at bedtime Start Date: 01/18/19 Status: Ordered Flomax 0.4 mg oral capsule 0.4 mg, 1, capsule, By Mouth, Daily, # 90 capsule, Refills 0, Tot. Refills 0, Maintenance, 199:06:25 EDT, Route to Pharmacy Electronically, [id number], [facility] #[id number] Start Date: 12/03/18 Status: Ordered ibuprofen 600 mg oral tablet 600 mg, 1, tablet, By Mouth, Every 6 hours, # 50 tablet, Refills 0, Tot. Refills 0, Maintenance, 01/18/19 6:54:06 EST, Route to Pharmacy Electronically, [id number], [facility] #[id number] Start Date: 01/18/19 Status: Ordered oxyCODONE 5 mg oral tablet See Instructions, PRN, 1 tablet By Mouth Every 6 hours as needed for pain, # 5 tablet, Refills 0, Tot. Refills 0, Maintenance, for pain, 02/09/19 11:31:49 EST, Instructions Replace Required Details, Print Requisition, Partial fill upon patient request Start Date: 02/09/19 Status: Ordered Multivitamins with Folic Acid 1 mg oral capsule See Instructions, TAKE ONE DAILY BY MOUTH, # 100 tablet, 2 Refills, Maintenance, 05/27/18 9:54:23 EDT, TAKE ONE DAILY BY MOUTH Start Date: 05/27/18 Status: Ordered Senna 8.6 mg oral tablet 8.6 mg, 1, tablet, By Mouth, Daily, PRN, # 12 tablet, Refills 0, Tot. Refills 0, Maintenance, for constipation, 11/11/18 14:30:48 EDT, Route to Pharmacy Electronically, [id number], [facility]/pharmacy #[id number] Tablet Start Date: 11/11/18 Status: Ordered Slow Fe (as elemental iron) 45 mg oral tablet, extended release 1 tablet = 45 mg, By Mouth, Every other day, # 30 tablet, 6 Refills, Maintenance, 07/09/18 9:37:35 EDT, ER Tablet Start Date: 07/09/18 Status: Ordered Tylenol 325 mg oral capsule 2 capsule = 650 mg, By Mouth, Every 4 hours, PRN as needed for pain, # 20 capsule, 0 Refills, Maintenance, 11/11/18 14:30:38 EDT, Capsule Start Date: 11/11/18 Status: Ordered Zofran 4 mg oral tablet 1 tablet = 4 mg, By Mouth, Every 8 hours, PRN Nausea & Vomiting, # 30 tablet, 1 Refills, Maintenance, 11/11/18 14:30:50 EDT, Tablet Start Date: 11/11/18 Status: Ordered Problem List Condition Effective Dates Status Health Status Inform ant Anxiety(Confirmed) Active H/O Chronic pelvic pain in female(Confirmed) Active H/O GDM(Confirmed) 2014 Active History of delivery(Confirmed) 2014 Active Nephrolithiasis(Confirmed) Active Uses Montserratian as primary spok en language(Confirmed) Active H/O Renal lithiasis(Confirmed) 12/18/11 Active Social History Social History Type Response Smoking Status Never smoker entered on: 01/02/14 Sex Female
--- OUTSIDE RECORDS SUMMARY | 2023-01-29 14:29 | XMS_ITS | Continuity of Care Document ---
Author Name Unknown Organization [facility] ter Address [address] [place] [address]- Care Team Providers Care Supervisor Mending Name Role Phone Jay Aldridge Primary Care Physician [place] [facility] [place]/07/22 - 08/07/[address] [address]- Encounter Diagnosis Flank pain(Final) - 08/07/22 Discharge Disposition: A-D/C Home Attending Physician: Aurelio Hill DO Admitting Physician: Aurelio Hill DO Referring Physician: Not on Staff, Referring MD Allergies, Adverse Reactions, Alerts Substance Reaction Severity Status Macrobid Active Immunizations Given and Recorded Vaccine Date Status Refusal Reason tetanus/diphtheria/pertussis, acel(Tdap) 11/19/18 Given tetanus/diphtheria/pertussis, acel(Tdap) 03/29/14 Given influenza virus vaccine, inactivated 11/19/18 Give n influenza virus vaccine, inactivated 12/06/13 Give n influenza virus vaccine, inactivated 12/17/11 Give n Medications duloxetine 60 mg oral enteric coated capsule TAKE 1 CAPSULE BY MOUTH EVERY DAY Start Date: 01/12/22 Status: Ordered ibuprofen 600 mg oral tablet 600 mg, 1, tablet, By Mouth, 4 times a day, PRN, with food or milk, # 30 tablet, Refills 0, Tot. Refills 0, Maintenance, Pain, 04/30/22 14:00:00 EST, Route to Pharmacy Electronically, [facility], Partial fill upon patient request, 156, c... Start Date: 04/30/22 Status: Ordered PEG-3350 with Electrolytes (Eqv-NuLYTELY) oral powder for reconstitution See Instructions, as directed, # 1 each, 0 Refills, Maintenance, 05/06/22 10:51:00 EST, [facility] #[id number], ok to sub for any gallon prep, as directed, 156, cm, 05/06/22 10:16:00 EST, Height, 80, kg, 04/30/22 6:51:00 EST, Dry Weight Start Date: 05/06/22 Status: Ordered Toradol Inj 30 mg, Injection, Intramuscular, Once, STAT, 08/07/22 10:08:00 EDT, Stop date 08/07/22 10:08:00 EDT Start Date: 08/07/22 Stop Date: 08/07/22 Status: Completed traZODone 50 mg oral tablet TAKE 1 TABLET BY MOUTH EVERY NIGHT AT BEDTIME Start Date: 01/12/22 Status: Ordered Tylenol Extra Strength 500 mg oral tablet 2 tablet = 1,000 mg, By Mouth, Every 6 hours, PRN for pain, not to exceed 4000 mg/day, # 50 tablet,0 Refills, Maintenance, 04/30/22 14:00:00 EST, Tablet, [facility], Partial fill upon patient request, 156, cm, 04/30/22 6:51:00 EST, [facility]... Start Date: 04/30/22 Status: Ordered Problem List Condition Confirmation Course Effective Dates Status H ealth Status Informant Anxiety Confirmed Active H/O Chronic pelvic pain in female Confirmed Active H/O GDM Confirmed 2014 Active History of delivery Confirmed 2014 Active Nephrolithiasis Confirmed Active Uses Armenian as primary spoken language Confirmed Active Obese class I Confirmed Active H/O Renal lithiasis Confirmed 12/18/11 Active Vital Signs Most recent to oldest [Reference Range]: 1 2 3 Height 155 cm (08/07/22 1:10 PM) 155 cm (08/07/22 6:36 AM) Weight 84 kg (08/07/22 1:10 PM) 84 kg (08/07/22 6:36 AM) Oxygen Saturation [94-100 %] 100 % (08/07/22 1:10 PM) 99 % (08/07/22 9:08 AM) 98 % (08/07/22 6:36 AM) Pulse Rate [55-90 bpm] 82 bpm (08/07/22 1:10 PM) 81 bpm (08/07/22 9:08 AM) 87 bpm (08/07/22 6:36 AM) Body Mass Index [18.5-24.99 kg/m2] 34.96 kg/m2 *>HHI* (08/07/22 1:10 PM) 34.96 kg/m2 *>HHI* (08/07/22 6:36 AM) Blood Pressure [90-138/55-84 mm Hg] 122/70mm Hg (08/07/22 1:10 PM) 127/80mm Hg (08/07/22 9:08 AM) 130/97mm Hg (08/07/22 6:36 AM) Respiratory Rate [16-30 br/min] 16 br/min (08/07/22 1:10 PM) 16 br/min (08/07/22 10:41 AM) 16 br/min (08/07/22 9:08 AM) Temperature [96.8-100.4 DegF] 97.9 DegF (08/07/22 1:10 PM) 97.7 DegF (08/07/22 9:08 AM) Mode of Delivery (Oxygen) Room air (08/07/22 1:10 PM) Room air (08/07/22 9:08 AM) Room air (08/07/22 6:36 AM) Blood pressure sites Arm, right (08/07/22 1:10 PM) Arm, right (08/07/22 9:08 AM) Arm, right (08/07/22 6:36 AM) Temperature Route Oral (08/07/22 1:10 PM) Oral (08/07/22 9:08 AM) Oral (08/07/22 6:36 AM) Dry Weight 84 kg (08/07/22 1:10 PM) 84 kg (08/07/22 6:36 AM) Weight Obtained Via Patient/family state d (08/07/22 6:36 AM) Dry Weight Obtained Via Patient/family s tated (08/07/22 6:36 AM) Social History Social History Type Response Smoking Status Never smoker entered on: 01/02/14 Sex Female Note * Emmie MOY, Kerrie: PERFORM Event Display: Patient Education Leaflets Authored Date: [id number] Multiple Documents ?? [id number] C??lculos renales dolorosos El dolor crystal augustina un c??black en devan de los lados de la parte baja de la espalda junto con n??useas o v??mitos que tiene se deben a que se form?? un kelin??o c??lculo en el ri?n. Ahora est?? descendiendo por un tubo estrecho (el ur??ter) de ivan a la vejiga. Cuando el c??lculo llega a la vejiga, el dolor, por lo general, disminuye. Rand puede regresar a medida que el c??lculo pase de la vejiga a la uretra. El c??lculo puede salir entero con la orina. Puede tener un jeniffer??o aproximado de 1??mm a 6??mm (03/17 a 03/05??de pulgada). O puede que se desintegre y forme fragmentos de aspecto arenoso que usted ni siquiera perciba. Si vanegas tenido un c??lculo renal, puede estar en riesgo de tener otro en el futuro. Hay 4??tipos de c??lculos renales. El 80??% son c??lculos de calcio (la mayor??a de calcio de oxalato, rand tambi??n de calcio de fosfato). Los otros 3??tipos incluyen c??lculos de ??cido ??rico, c??lculos de estruvita (provenientes de meek infecci??n anterior) y, yelena vez, c??lculos de cistina. La mayor??a de los c??lculos saldr??n por s?? solos. Rand esto puede tardar de unas horas a algunosd??as. En ocasiones, el c??lculo es demasiado georgette y no puede pasar solo. En galileo nik, el proveedor de atenci??n m??dica tendr?? que usar otras maneras de eliminar el c??lculo. Entre ellas, se incluyen las siguientes: ??? Litotripsia por ondas de choque. Ramila leona procedimiento no invasivo, se utilizan ondas sonoras de choque para romper el c??lculo y permitir pineda expulsi??n. ??? Ureteroscopia. En leona procedimiento se introduce un instrumento a french??s de la uretra y la vejiga hasta el ur??ter para extraer elc??lculo. Leona procedimiento se realiza bajo anestesia. ??? Cirug??a. Podr??a necesitar meek cirug??a para extraer el c??lculo. Cuidados en el hogar Las siguientes son recomendaciones de cuidado general: ??? Yamilet abundante cantidad de l??quidos. Kane es al menos 12??vasos de 250??cc (8??onzas) de l??quidos (en pineda mayor??a, agua) al d??a. ??? Cadavez que orine, h??shayla en un frasco. Vuelque la orina desde el frasco al inodoro a french??s del colador. Contin??e haciendo esto hasta 24??horas despu??s de que haya cesado el dolor. Para entonces, sihab??a un c??lculo renal, deber??a zachary pasado por la vejiga. Algunos c??lculos se disuelven en part??culas augustina la arena y pasan de moiz por el colador. En galileo nik, nunca isabell?? un c??lculo. ??? Si encuentra alg??n c??lculo en el colador, gu??rdelo y ll??veselo a pineda proveedor de atenci??n m??dica para pineda an??lisis. Podr??a ser posible evitar que se formen determinados tipos de c??lculos. Por eso, es muy importante saber qu?? clase de c??lculo tiene. ??? Procure mantenerse lo m??s activo posible. Kane ayudar?? a que salga el c??lculo. No se quede en la cama, a menos que el dolor le impida levantarse. Es posible que note un color jacinto, sullivan o negra??n en la orina. Kane es normal al expulsar un c??lculo renal. ??? Si tiene dolor, puede tarun ibuprofeno o naproxeno, a menos que le hayan recetado otro medicamento.??Consulte con el proveedor de atenci??n m??dica antes de usar estos medicamentos si tiene meek enfermedad cr??maximino del h??gado o de los ri??ones. Consulte, tambi??n, si vanegas sufrido de ??lceras estomacales o hemorragias gastrointestinales. ?? C??mo prevenir los c??lculos En los siguientes 5 a 7??a??os, est?? en riesgo de que se forme un c??lculo nuevo. Leona riesgo es del 50??% ramila leona per??odo.??El riesgo es mayor si tiene antecedentes familiares de c??lculos renales o de ciertas enfermedades cr??nicas, augustina presi??n arterial christian, obesidad o diabetes.?Hacer cambios en la alimentaci??n y en el estilo de malia podr??a disminuir el riesgo de tener otro c??lculo. La mayor??a de los c??lculos renales son de calcio. Los siguientes consejos lo ayudar??n a prevenirla formaci??n de nuevos c??lculos de calcio.??Si no conoce el tipo de c??lculo que tiene, siga estos consejos hasta que se determine la causa del suyo. Cosas que pueden ayudar: ??? Lo m??s importante que puede hacer es beber mucho l??quido todos los d??as. Consulte la secci??n Cuidados en el hogar que est?? m??s arriba.? Consuma alimentos que contengan fitatos. Estos pueden ser, por ejemplo, sonia, arroz, vanessa, cebada y frijoles. Los fitatos son sustancias que pueden reducir el riesgo de que se formen c??lculos de cualquier tipo. ??? Consuma m??s frutas y verduras.??Escoja las que tengan mucho potasio. ??? Consuma alimentos con alto contenido de citrato natural, augustina frutas o jugos de fruta con bajo contenido de az??car, por ejemplo,limonada. El citrato lo protege de los c??lculos renales porque impide que los gayla se conviertan en piedras ??? Tener demasiado poco calcio en la dieta puede aumentar el riesgo de tener c??lculos renales de calcio. Consuma meek dieta normal de calcio y hable con pineda proveedor de atenci??n m??dica si est?? tomando suplementos de calcio. Reducir el consumo de calcio puede aumentar el riesgo.??Un nuevo estudio muestra que consumir alimentos ricos en calcio y oxalato combinados disminuye el riesgo de tener c??lculos porque vinculan los minerales en el est??jayy y los intestinos antes de que lleguen a los ri??ones. ? Limite el consumo de ashley a 2??gramos (1??cucharadita) por d??a. Un alto contenido de sodio en pineda dieta puede aumentar la cantidad de calcio que se env??a a la orina. Estopuede aumentar las posibilidades de que se forme otro c??lculo. Reduzca pineda uso al cocinar y no a??ada ashley a los alimentos en la jarrell.??Los alimentos procesados y enlatados generalmente tienen monica ashley.? Las espinacas, el ruibarbo, los cacahuates, las casta??as de caj??, las almendras, las toronjas y el jugo de toronja tienen un alto contenido de oxalato. Debe limitar las cantidades que consume o combinarlos con alimentos ricos en calcio. Estos alimentos incluyen productos l??cteos, verduras de hoja harpreet, productos derivados de la soya y alimentos con calcio agregado. ??? Disminuir el consumo de carne animal, mariscos y alimentos con monica prote??na tambi??n puede reducir el riesgo de tener c??lculos de ??cido ??rico. Estos alimentos tienen cantidades elevadas de un compuesto llamado purina. Consumir muchos alimentos con purina puede hacer que pineda cuerpo produzca m??s ??cido ??rico. Tambi??n se recomienda limitar el consumo de alcohol para disminuir la producci??n de ??cido ??rico. ??? Limite la cantidad de az??car (sacarosa) y de refrescos con fructosa que consume.? Si est?? tomando vitamina??C augustina suplemento, no tome m??s de 1000??mg por d??a. ??? Un nutricionista o pineda proveedor de atenci??n m??dica pueden darle informaci??n sobre los cambios en pineda dieta para prevenir la formaci??n de m??s c??lculos renales. ?? Atenci??n de seguimiento Asista a las visitas de seguimiento con pineda proveedor de atenci??n m??dica, o seg??n le hayan recomendado, si el dolor se extiende por m??s de 48??horas. Hable con el proveedor sobre los an??lisis de jose y de orina para encontrar la causa del c??lculo. Si le hicieron radiograf??as, meek tomograf??a computarizada u otra prueba de diagn??stico, le informar??n de los nuevos resultados que puedan afectar la atenci??n m??dica que necesita. ?? Cu??ndo llamar al?? 911 Llame al?? 911 si presenta los siguientes s??ntomas: ??? Debilidad, mareos o desmayos ?? Cu??ndo debe buscar atenci??n m??dica Llame al proveedor de atenci??n m??dica de inmediato ante cualquiera de las siguientes situaciones:??? Dolor que no se sera con los medicamentos que le dieron ??? V??mitos persistentes o incapacidad de retener l??quidos en el est??jayy ??? Fiebre de 100.4?F (38?C) o superior, o seg??n le indique el proveedor ??? Orina de color negra??n o jacinto s??lido (es decir, que no puede isabell a french??s de la orina) o muchos co??gulos de jose ??? Orina turbia o maloliente ??? Incapacidad para orinar en 8??horas y aumento de la presi??n de la vejiga ?? Last Reviewed Date: 2021 ?? [id number] [employer]. Todos los derechos reservados. Esta informaci??n no pretende sustituir la atenci??n m??dica profesional. S??lo pineda m??dico puede diagnosticar y tratar un problema de yovanny. ?? * Kerrie Olea NP: PERFORM Event Display: Patient Education Leaflets Authored Date: [id number] Multiple Documents ?? [id number] Dolor lateral de causa desconocida El lateral es la newton entre la parte superior del abdomen y la espalda. El dolor en junior newton suele deberse a un problema con los ri??ones. Puede ser meek infecci??n o meek linda (c??lculo) en los ri??ones. Otras causas de dolor lateral incluyen artritis odonnell, un nervio pinzado por meek lesi??n en la espalda, en meek sujit, un moret??n o un espasmo, inflamaci??n o esfuerzo muscular en la espalda. No se conoce exactamente la causa del dolor que siente en pineda lateral. Puede que deban hacerle otraspruebas. Cuidados en el hogar Siga estos consejos para cuidarse en pineda casa: ??? Puede usar paracetamol o ibuprofeno para controlar el dolor, a menos que le hayan recetado otro medicamento. Si tiene meek enfermedad cr??maximino del h??gado o de los ri??ones, consulte al proveedor antes de usar estos medicamentos. Tambi??n hable con pineda proveedor rico si alguna vez tuvo ??lceras estomacales o hemorragia gastrointestinal. ??? Si lacausa de pineda dolor es muscular, puede aliviarlo con hielo o calor. Ramila los dos primeros d??as despu??s de la lesi??n, apl??quese meek compresa de hielo sobre la newton adolorida ramila 20??minutos cada 2??a 4??horas. Kane reducir?? la hinchaz??n y el dolor. Meek ducha caliente, un ba??o caliente o meek almohadilla t??rmica funcionan dawit para los espasmos musculares. Puede comenzar aplic??ndose hielo y luego pasar a aplicarse calor despu??s de dos d??as. Pruebe alternando el hielo y el calor. Quiz??s le mario dawit hacerlo as??. Emplee el m??todo que mejor le resulte. ?? Atenci??n de seguimiento Programe meek shaye de seguimiento con el proveedor de atenci??n m??dica si el s??ntomas no mejoran en los siguientes d??as. ?? Cu??ndo debe buscar atenci??n m??dica Llame a pineda proveedor de atenci??n m??dica de inmediato??ante cualquiera de los siguientes s??ntomas: ??? V??mitos persistentes ??? Fiebre de 100.4?F (38?C) o superior, o seg??n le indique el proveedor de atenci??n m??dica ??? Escalofr??os ??? Dolor lateral que empeora ??? Dolor que se propagahacia la parte delantera del abdomen ??? Mareos, debilidad o desmayo ??? Jose en la orina ??? Sensaci??n de ardor al orinar o necesidad de orinar con m??s frecuencia ??? Dolor en las piernas que empeora ??? Entumecimiento o debilidad en meek pierna ?? Last Reviewed Date: 2021 ?? [id number] [employer]. Todos los derechos reservados. Esta informaci??n no pretende sustituir la atenci??n m??dica profesional. S??lo pineda m??dico puede diagnosticar y tratar un problema de yovanny. ?? Patient Care team information Care Team Personnel Name: Jay Aldridge Position: [facility] Outreach Member Role: PCP Address: Address: [address] [place] [address]- Name: Jay Gotti Position: [facility] Outreach Member Role: Lifetime Consulting Physician Address: Address: [address] [place] [address]- [place] Name: Juliet Schumacher RN Position: [facility] RN Member Role: Primary Care Nurse Name: Cynthia Narayanan RN Position: [facility] RN Member Role: Primary Care Nurse Name: Kerrie Olea NP Position: [facility] Associate Professional Member Role: ED Physician Pediatrician/Medical Doctor Address: Address: [address] [place] [address]- Name: Aurelio Hill DO Position: [facility] Resident Member Role: Admitting Physician Address: Address: [address] [place] [address] [place] [address]- Name: Roseanne Jimenez Position: [facility] ED TA [facility] Member Role: Patient Care Provider Name: Dayanara Wolf RN Position: [facility] ED RN W/OE and Tasks Member Role: Patient Care Provider Care Team Related Persons Name: RONI CASILLAS Address: [id number] Address: home [address] [place] [address] [place] Name: ELISSA CASILLAS Address: home [address] [place] [address] Name: GEORGIANA SPANN Address: home [address] [place] [address] Name: STEVE CALLES Address: home [address] [place] [address] Name: PAVAN CALLES Address: home [address] [place] [address] Name: PAVAN CALLES Address: home [address] [place] [address]
--- OUTSIDE RECORDS SUMMARY | 2023-01-29 14:29 | XMS_ITS | Continuity of Care Document ---
Author Name Unknown Organization [facility] ter Address [address] [place] [address]- Care Team Providers Care Choral Director Name Role Phone Coco PACHECO, Miike Mike Primary Care Physician [phone] Encounter [facility] Date(s): 02/09/19 - 03/12/[address] [address]- [facility] Attending Physician: Betzaida Gallardo CNM Admitting Physician: Betzaida Gallardo CNM Referring Physician: Betzaida Gallardo CNM Allergies, Adverse Reactions, Alerts Substance Reaction Severity [...] 11/11/18 14:30:44 EDT, Route to Pharmacy Electronically, [id number], [facility]/pharmacy #[id number] Start Date: 11/11/18 Status: Ordered Dilaudid 2 [...] capsule, Refills 0, Tot. Refills 0, Maintenance, :06:25 EDT, Route to Pharmacy Electronically, [id number], [id number] Start Date: 12/03/18 Status: Ordered ibuprofen 600 mg oral tablet 600 mg, 1, tablet, By Mouth, Every 6 hours, # 50 tablet, Refills 0, Tot. Refills 0, Maintenance, 01/18/19 6:54:06 EST, Route to Pharmacy Electronically, [id number], [id number] Start Date: 01/18/19 Status: Ordered oxyCODONE 5 [...] 11/11/18 14:30:48 EDT, Route to Pharmacy Electronically, [id number], [facility]/pharmacy #[id number] Tablet Start Date: 11/11/18 Status: Ordered [...] of delivery(Confirmed) 2014 Active Nephrolithiasis(Confirmed) Active Uses South Sudanese as primary spok en language(Confirmed) Active H/O Renal lithiasis(Confirmed) 12/18/11 Active Social History Social History Type Response Smoking Status Never smoker entered on: 01/02/14 Sex Female
--- OUTSIDE RECORDS SUMMARY | 2023-01-29 14:29 | XMS_ITS | Continuity of Care Document ---
Author Name Unknown Organization [facility] Address [address] [place] [address]- Care Team Providers Care Injection Moulding Machine Operator Name Role Phone Jay Aldridge Primary Care Physician Encounter [facility] Date(s): 10/05/20 - 11/04/[address] [address]- Allergies, Adverse Reactions, Alerts Substance Reaction Severity [...] 11/11/18 14:30:44 EDT, Route to Pharmacy Electronically, [id number], [facility]/pharmacy #1130 Start Date: 11/11/18 Status: Ordered Dilaudid [...] Maintenance, :06:25 EDT, Route to Pharmacy Electronically, [id number], [id number] Start Date: 12/03/18 Status: Ordered ibuprofen 600 mg oral tablet 600 mg, 1, tablet, By Mouth, Every 6 hours, # 50 tablet, Refills 0, Tot. Refills 0, Maintenance, 01/18/19 6:54:06 EST, Route to Pharmacy Electronically, [id number], [facility] #[id number] Start Date: 01/18/19 Status: Ordered oxyCODONE 5 [...] 11/11/18 14:30:48 EDT, Route to Pharmacy Electronically, [id number], [facility]/pharmacy #1130 Tablet Start Date: 11/11/18 Status: Ordered [...] of delivery(Confirmed) 2014 Active Nephrolithiasis(Confirmed) Active Uses Niuean as primary spok en language(Confirmed) Active H/O Renal lithiasis(Confirmed) 12/18/11 Active Social History Social History Type Response Smoking Status Never smoker entered on: 01/02/14 Sex Female
--- OUTSIDE RECORDS SUMMARY | 2023-01-29 14:29 | XMS_ITS | Continuity of Care Document ---
Author Name Unknown Organization [facility] Address [address] [place] [address]- Care Team Providers Care Cell Tester Name Role Phone Coco PACHECO, Mikie Mike Primary Care Physician Encounter [facility] Date(s): 11/19/18 - 03/13/[address] [address]- [facility] Attending Physician: Not on Staff, [...] 11/11/18 14:30:44 EDT, Route to Pharmacy Electronically, [id number], [facility]/pharmacy #[id number] Start Date: 11/11/18 Status: Ordered Dilaudid 2 [...] Maintenance, 199:06:25 EDT, Route to Pharmacy Electronically, [id number], [facility] #[id number] Start Date: 12/03/18 Status: Ordered ibuprofen 600 mg oral tablet 600 mg, 1, tablet, By Mouth, Every 6 hours, # 50 tablet, Refills 0, Tot. Refills 0, Maintenance, 01/18/19 6:54:06 EST, Route to Pharmacy Electronically, [id number], [facility] #[id number] Start Date: 01/18/19 Status: Ordered oxyCODONE 5 [...] 11/11/18 14:30:48 EDT, Route to Pharmacy Electronically, [id number], [facility]/pharmacy #1130 Tablet Start Date: 11/11/18 Status: [...] of delivery(Confirmed) 2014 Active Nephrolithiasis(Confirmed) Active Uses Occitan as primary spok en language(Confirmed) Active H/O Renal lithiasis(Confirmed) 12/18/11 Active Social History Social History Type Response Smoking Status Never smoker entered on: 01/02/14 Sex Female
--- OUTSIDE RECORDS SUMMARY | 2023-01-29 14:29 | XMS_ITS | Continuity of Care Document ---
Author Name Unknown Organization [facility] Address [address] [place] [address]- Care Team Providers Care Turbo Operator Name Role Phone Jay Aldridge Primary Care Physician En[place] [facility] Date(s): 05/14/20 - 06/13/20 [facility] [address] [place], [place] [address] Attending Physician: Yousif Cox Admitting Physician: Admtr, René8 Referring Physician: Admtr, Ar8 Allergies, Adverse Reactions, Alerts Substance Reaction Severity [...] 11/11/18 14:30:44 EDT, Route to Pharmacy Electronically, [id number], [facility]/pharmacy #1134 Start Date: 11/11/18 Status: Ordered Dilaudid 2 [...] Maintenance, 199:06:25 EDT, Route to Pharmacy Electronically, [id number], [id number] Start Date: 12/03/18 Status: Ordered ibuprofen 600 mg oral tablet 600 mg, 1, tablet, By Mouth, Every 6 hours, # 50 tablet, Refills 0, Tot. Refills 0, Maintenance, 01/18/19 6:54:06 EST, Route to Pharmacy Electronically, [id number], [facility] #[id number] Start Date: 01/18/19 Status: Ordered oxyCODONE 5 [...] 11/11/18 14:30:48 EDT, Route to Pharmacy Electronically, [id number], [facility]/pharmacy #1130 Tablet Start Date: 11/11/18 [...] of delivery(Confirmed) 2014 Active Nephrolithiasis(Confirmed) Active Uses Setswana as primary spok en language(Confirmed) Active H/O Renal lithiasis(Confirmed) 12/18/11 Active Social History Social History Type Response Smoking Status Never smoker entered on: 01/02/14 Sex Female
--- OUTSIDE RECORDS SUMMARY | 2023-01-29 14:29 | XMS_ITS | Continuity of Care Document ---
Author Name Unknown Organization [facility] Address [address] [place] [address]- Care Team Providers Care Product Safety Administrator Name Role Phone Jay Aldridge Primary Care Physician En[place] [facility] Date(s): 04/15/22 - 05/15/22 [facility] [address] [place] [address]- [place] Allergies, Adverse Reactions, Alerts Substance Reaction Severity [...] 04/30/22 14:00:00 EST, Route to Pharmacy Electronically, [facility], Partial fill upon patient request, 156, c... Start Date: 04/30/22 Status: Ordered PEG-3350 with Electrolytes (Eqv-NuLYTELY) oral powder for reconstitution See Instructions, as directed, # 1 each, 0 Refills, Maintenance, 05/06/22 10:51:00 EST, [facility] #[id number], ok to sub for any gallon prep, as directed, 156, cm, 05/06/22 10:16:00 EST, Height, 80, kg, 04/30/22 6:51:00 EST, Dry Weight Start Date: 05/06/22 Status: Ordered traZODone 50 mg oral tablet TAKE 1 TABLET BY MOUTH EVERY NIGHT AT BEDTIME Start Date: 01/12/22 Status: Ordered Tylenol Extra Strength 500 mg oral tablet 2 tablet = 1,000 mg, By Mouth, Every 6 hours, PRN for pain, not to exceed 4000 mg/day, # 50 tablet,0 Refills, Maintenance, 04/30/22 14:00:00 EST, Tablet, [facility], Partial fill upon patient request, 156, cm, 04/30/22 6:51:00 EST, [facility]... Start Date: 04/30/22 Status: Ordered Problem List Condition Confirmation Course Effective Dates Status H ealth Status Informant Anxiety Confirmed Active H/O Chronic pelvic pain in female Confirmed Active H/O GDM Confirmed 2014 Active History of delivery Confirmed 2014 Active Nephrolithiasis Confirmed Active Uses Cook Islander as primary spoken language Confirmed Active Obese class I Confirmed Active H/O Renal lithiasis Confirmed 12/18/11 Active Social History Social History Type Response Smoking Status Never smoker entered on: 01/02/14 Sex Female Patient Care team information Care Team Personnel Name: Jay Aldridge Position: [facility] Outreach Member Role: PCP Address: Address: [address] [place] [address]- Name: Jay Gotti Position: S Outreach Member Role: Lifetime Consulting Physician Address: Address: [address] [place] [address]- Name: Juliet Schumacher RN Position: S RN Member Role: Primary Care Nurse Name: Cynthia Narayanan RN Position: S RN Member Role: Primary Care Nurse Care Team Related Persons Name: RONI CASILLAS Address: [address] Address: home [address] [place] [address] [place] Name: ELISSA CASILLAS Address: home [address] [place] [address] Name: GEORGIANA SPANN Address: home [address] [address] Name: STEVE CALLES Address: home [address] [place] [address] Name: PAVAN CALLES Address: home [address] [place] [address] Name: PAVAN CALLES Address: home [address] [facility] [address] [place] [address]
--- OUTSIDE RECORDS SUMMARY | 2023-01-29 14:29 | XMS_ITS | Continuity of Care Document ---
Author Name Unknown Organization [facility] Address [address] [place] [address]- Care Team Providers Care Trader Name Role Phone Mikie Sepulveda MD Primary Care Physician [phone] Encounter [facility] Date(s): 02/18/19 - 04/17/[address] [address]- [facility] Attending Physician: Not on Staff, Attending MD Referring Physician: Mikie Sepulveda MD Allergies, Adverse Reactions, Alerts Substance Reaction [...] 11/11/18 14:30:44 EDT, Route to Pharmacy Electronically, [id number], [facility]/pharmacy #1130 Start Date: 11/11/18 Status: Ordered Dilaudid [...] Maintenance, :06:25 EDT, Route to Pharmacy Electronically, [id number], [facility] #[id number] Start Date: 12/03/18 Status: Ordered ibuprofen 600 mg oral tablet 600 mg, 1, tablet, By Mouth, Every 6 hours, # 50 tablet, Refills 0, Tot. Refills 0, Maintenance, 01/18/19 6:54:06 EST, Route to Pharmacy Electronically, [id number], [facility] #[id number] Start Date: 01/18/19 Status: Ordered oxyCODONE 5 [...] 11/11/18 14:30:48 EDT, Route to Pharmacy Electronically, [id number], [facility] Tablet Start Date: 11/11/18 Status: Ordered [...] of delivery(Confirmed) 2014 Active Nephrolithiasis(Confirmed) Active Uses Malay as primary spok en language(Confirmed) Active H/O Renal lithiasis(Confirmed) 12/18/11 Active Social History Social History Type Response Smoking Status Never smoker entered on: 01/02/14 Sex Female
--- OUTSIDE RECORDS SUMMARY | 2023-01-29 14:29 | XMS_ITS | Continuity of Care Document ---
Author Name Unknown Organization [facility] Address [address] [place] [address]- Care Team Providers Care City Carrier Name Role Phone aJy Aldridge Primary Care Physician Encounter [facility] Date(s): 05/15/22 - 05/15/[address] [address]- Encounter Diagnosis Epigastric pain(Final) - 05/15/22 Discharge Disposition: A-D/C Home Attending Physician: Joshua Valencia MD Admitting Physician: Joshua Valencia MD Referring Physician: Not on Staff, Referring MD [...] 04/30/22 14:00:00 EST, Route to Pharmacy Electronically, [facility], Partial fill upon patient request, 156, c... Start Date: 04/30/22 Status: Ordered MorPHINE Inj 2 mg, Injection, IV Push Slowly, Once, STAT, 05/15/22 10:12:00 EDT, Stop date 05/15/22 10:12:00 EDT Start Date: 05/15/22 Stop Date: 05/15/22 Status: Completed PEG-3350 with Electrolytes (Eqv-NuLYTELY) oral powder for reconstitution See Instructions, as directed, # 1 each, 0 Refills, Maintenance, 05/06/22 10:51:00 EST, [facility] #[id number], ok to sub for any gallon prep, [...] tablet,0 Refills, Maintenance, 04/30/22 14:00:00 EST, Tablet, [facility], Partial fill upon patient request, 156, cm, 04/30/22 6:51:00 EST, [facility]... Start Date: 04/30/22 Status: Ordered Problem List Condition Confirmation Course Effective Dates Status H ealth Status Informant Anxiety Confirmed Active H/O Chronic pelvic pain in female Confirmed Active H/O GDM Confirmed 2014 Active History of delivery Confirmed 2014 Active Nephrolithiasis Confirmed Active Uses Zimbabwean as primary spoken language Confirmed Active Obese class I Confirmed Active H/O Renal lithiasis Confirmed 12/18/11 Active Vital Signs Most recent to oldest [Reference Range]: 1 2 3 Oxygen Saturation [94-100 %] 100 % (05/15/22 10:30 AM) 100 % (05/15/22 8:57 AM) 100 % (05/15/22 6:47 AM) Pulse Rate [55-90 bpm] 89 bpm (05/15/22 10:30 AM) 88 bpm (05/15/22 8:57 AM) 94 bpm *H* (05/15/22 6:47 AM) Blood Pressure [90-138/55-84 mm Hg] 126/88mm Hg (05/15/22 10:30 AM) 128/84mm Hg (05/15/22 8:57 AM) 131/81mm Hg (05/15/22 6:47 AM) Respiratory Rate [16-30 br/min] 18 br/min (05/15/22 10:51 AM) 16 br/min (05/15/22 10:30 AM) 18 br/min (05/15/22 10:21 AM) Temperature [96.8-100.4 DegF] 97.8 DegF (05/15/22 10:30 AM) 97.6 DegF (05/15/22 8:57 AM) 97.5 DegF (05/15/22 6:47 AM) Mode of Delivery (Oxygen) Room air (05/15/22 10:30 AM) Room air (05/15/22 8:57 AM) Room air (05/15/22 6:47 AM) Blood pressure sites Arm, left (05/15/22 10:30 AM) Arm, left (05/15/22 8:57 AM) Arm, left (05/15/22 6:47 AM) Temperature Route Oral (05/15/22 10:30 AM) Oral (05/15/22 8:57 AM) Oral (05/15/22 6:47 AM) Social History Social History Type Response Smoking Status Never smoker entered on: 01/02/14 Sex Female EKG study * Event Display: ECG 12-Lead Authored Date: Please click on pdf link to open report * Event Display: ECG 12-Lead Authored Date: Ventricular Rate: 75 BPM Atrial Rate: 75 BPM P-R Interval: 176 ms QRS Duration: 96 ms Q-T Interval: 388 ms QTC Calculation(Bazett): 433 ms P Kingsley: 13 degrees R Kingsley: 30 degrees T Kingsley: 11 degrees Normal sinus rhythm Poor R wave progression Abnormal ECG When compared with ECG of 20-JUN-2021 08:34, No significant change was found Confirmed by BECCA PHILLIPS ([id number]) on 05/15/2022 9:10:41 AM Alba: BECCA PHILLIPS * Event Display: EKG Authored Date: Patient Care team information Care Team Personnel Name: Jay Aldridge Position: S Outreach Member Role: PCP Address: Address: [address] [place] [address]- [place] Name: Jay Gotti Position: [facility] Outreach Member Role: Lifetime Consulting Physician Address: Address: [facility] [address] [place] [address]- [place] Name: Juliet Schumacher RN Position: [facility] RN Member Role: Primary Care Nurse Name: Cynthia Narayanan RN Position: [facility] RN Member Role: Primary Care Nurse Name: Neda Herrera RN Position: [facility] ED RN W/OE and Tasks Member Role: Patient Care Provider Name: Maia Foster Position: [facility] Associate Professional Member Role: ED Physician Corner Cutter Address: Address: [address] [place] [address]- [place] Name: Joshua Valencia MD Position: [facility] ED Medicine MD Member Role: Admitting Physician Address: Address: [address] [place] [address]- Care Team Related Persons Name: RONI CASILLAS Address: [address] Address: home [address] [place] [address] [place] Name: ELISSA CASILLAS Address: home [address] [place] [address] Name: GEORGIANA SPANN Address: home [address] [facility] [address] [place] [address] Name: STEVE CALLES Address: home [address] [place] [address] Name: PAVAN CALLES Address: home [address] [place] [address] Name: PAVAN CALLES Address: home [address] [facility] [address] [place] [address]
--- OUTSIDE RECORDS SUMMARY | 2023-01-29 14:29 | XMS_ITS | Continuity of Care Document ---
Author Name Unknown [facility] Address [address] [place] [address]- Care Team Providers Care Yard Warehouse Worker Name Role Phone Jay Aldridge Primary Care Physician [phone] Encounter [facility] Date(s): 08/18/22 - 08/18/[address] [address]- Discharge Disposition: A-D/C Home Attending Physician: Shiv Liu MD Admitting Physician: Shiv Liu MD Referring Physician: Shiv Liu MD Allergies, Adverse Reactions, Alerts Substance Reaction [...] EVERY DAY Start Date: 01/12/22 Status: Ordered PEG-3350 with Electrolytes (Eqv-NuLYTELY) oral powder for reconstitution See Instructions, as directed, # 1 each, 0 Refills, Maintenance, 05/06/22 10:51:00 EST, [facility] #[id number], ok to sub for any gallon prep, [...] tablet,0 Refills, Maintenance, 04/30/22 14:00:00 EST, Tablet, [facility], Partial fill upon patient request, 156, cm, 04/30/22 6:51:00 EST, [facility]... Start Date: 04/30/22 Status: Ordered Problem List Condition Confirmation Course Effective Dates Status H ealth Status Informant Anxiety Confirmed Active H/O Chronic pelvic pain in female Confirmed Active H/O GDM Confirmed 2014 Active History of delivery Confirmed 2014 Active Nephrolithiasis Confirmed Active Uses Kiswahili as primary spoken language Confirmed Active Obese class I Confirmed Active H/O Renal lithiasis Confirmed 12/18/11 Active Vital Signs Most recent to oldest [Reference Range]: 1 2 3 Height 155 cm (08/18/22 8:14 AM) Oxygen Saturation [94-100 %] 98 % (08/18/22 9:13 AM) 99 % (08/18/22 9:10 AM) 99 % (08/18/22 9:05 AM) Pulse Rate [55-90 bpm] 87 bpm (08/18/22 8:14 AM) Blood Pressure [90-138/55-84 mm Hg] 122/70mm Hg (08/18/22 9:10 AM) 119/81mm Hg (08/18/22 9:05 AM) 111/72mm Hg (08/18/22 8:55 AM) Respiratory Rate [16-30 br/min] 14 br/min *L* (08/18/22 9:10 AM) 20 br/min (08/18/22 9:05 AM) 17 br/min (08/18/22 8:55 AM) Temperature [96.8-100.4 DegF] 97.3 DegF (08/18/22 8:45 AM) 98.4 DegF (08/18/22 8:14 AM) Liters per Minute 2 L/min (08/18/22 8:45 AM) Mode of Delivery (Oxygen) Room air (08/18/22 9:13 AM) Room air (08/18/22 9:10 AM) Room air (08/18/22 9:05 AM) Blood pressure sites Arm, left (08/18/22 8:14 AM) Temperature Route Temporal (08/18/22 8:45 AM) Temporal (08/18/22 8:14 AM) Dry Weight 84.1 kg (08/18/22 8:14 AM) Dry Weight Obtained Via Standing scale (08/18/22 8:14 AM) Social History Social History Type Response Smoking Status Never smoker entered on: 01/02/14 Sex Female Patient Care team information Care Team Personnel Name: Jay Aldridge Position: [facility] Outreach Member Role: PCP Address: Address: [address] [place] [address]- [place] Name: Jay Gotti Position: [facility] Outreach Member Role: Lifetime Consulting Physician Address: Address: [address] [place] [address]- Name: Juliet Schumacher RN Position: S RN Member Role: Primary Care Nurse Name: Cynthia Narayanan RN Position: S RN Member Role: Primary Care Nurse Care Team Related Persons Name: RONI CASILLAS Address: [address] Address: home [address] [place] [address] [place] Name: ELISSA CASILLAS Address: home [address] [place] [address] Name: GEORGIANA SPANN Address: home [address] [facility] [facility] [address] [place] [address] Name: STEVE CALLES Address: home [address] [place] [address] Name: PAVAN CALLES Address: home [address] [place] [address] Name: PAVAN CALLES Address: home [address] [facility] [address] [place] [address]
--- OUTSIDE RECORDS SUMMARY | 2023-01-29 14:29 | XMS_ITS | Continuity of Care Document ---
Author Name Unknown Organization [facility] Address [address] [place] [address]- Care Team Providers Care Corporate Webmaster Name Role Phone Jay Aldridge Primary Care Physician Encounter [facility] Date(s): 11/13/20 - 11/20/20 [facility] [address] [place], [place] [address] Attending Physician: Bladimir Martins MD Allergies, Adverse Reactions, Alerts Substance Reaction Severity Status Macrobid Active Immunizations Given and Recorded Vaccine Date Status Refusal Reason tetanus/diphtheria/pertussis, acel(Tdap) 11/19/18 Given tetanus/diphtheria/pertussis, acel(Tdap) 03/29/14 Given influenza virus vaccine, inactivated 11/19/18 Give n influenza virus vaccine, inactivated 12/06/13 Give n influenza virus vaccine, inactivated 12/17/11 Give n Medications amoxicillin 500 mg oral capsule 2 capsule = 1,000 mg, By Mouth, 2 times a day, for 10 days, # 40 capsule, 0 Refills, Acute :24:00 EDT, 11/13/20 9:24:00 EDT, Capsule, [facility][id number], Partial fill upon patient request if the prescription is for a schedule II opi... Start Date: 11/13/20 Stop Date: 11/23/20 Status: Ordered Colace sodium 100 mg oral capsule 100 mg, 1, capsule, By Mouth, 2 times a day, PRN, # 60 capsule, Refills 0, Tot. Refills 0, Maintenance, for constipation, 11/11/18 14:30:44 EDT, Route to Pharmacy Electronically, [id number], [facility] Start Date: 11/11/18 Status: Ordered Dilaudid [...] Maintenance, 199:06:25 EDT, Route to Pharmacy Electronically, [id number], [facility][id number] Start Date: 12/03/18 Status: Ordered ibuprofen 600 mg oral tablet 600 mg, 1, tablet, By Mouth, Every 6 hours, # 50 tablet, Refills 0, Tot. Refills 0, Maintenance, 01/18/19 6:54:06 EST, Route to Pharmacy Electronically, [id number], [facility][id number] Start Date: 01/18/19 Status: Ordered oxyCODONE 5 [...] 11/11/18 14:30:48 EDT, Route to Pharmacy Electronically, [id number], [facility]/pharmacy #1130 Tablet Start Date: 11/11/18 Status: Ordered [...] of delivery(Confirmed) 2014 Active Nephrolithiasis(Confirmed) Active Uses Bahamian as primary spok en language(Confirmed) Active H/O Renal lithiasis(Confirmed) 12/18/11 Active Vital Signs Most recent to oldest [Reference Range]: 1 Height 155 cm (11/13/20 9:09 AM) Oxygen Saturation [94-100 %] 100 % (11/13/20 9:09 AM) Pulse Rate [55-90 bpm] 79 bpm (11/13/20 9:09 AM) Blood Pressure [90-138/55-84 mm Hg] 128/ 76mm Hg (11/13/20 9:09 AM) Respiratory Rate [16-30 br/min] 18 br/mi n (11/13/20 9:09 AM) Temperature [96.8-100.4 DegF] 98.1 DegF (11/13/20 9:09 AM) Mode of Delivery (Oxygen) Room air (11/13/20 9:09 AM) Blood pressure sites Arm, left (11/13/20 9:09 AM) Temperature Route Temporal (11/13/20 9:09 AM) Social History Social History Type Response Smoking Status Never smoker entered on: 01/02/14 Sex Female
--- OUTSIDE RECORDS SUMMARY | 2023-01-29 14:29 | XMS_ITS | Continuity of Care Document ---
Author Name Unknown Organization [facility] ter Address [address] [place] [address]- Care Team Providers Care Bottom Liner Name Role Phone Jay Aldridge Primary Care Physician [place] [facility] [place]s): 10/18/19 - 10/18/[address] [address]- [facility] Discharge Disposition: A-D/C Walkout Attending Physician: Not on Staff, Attending MD Admitting Physician: Not on Staff, Admitting MD Referring Physician: Not on Staff, Referring [...] 11/11/18 14:30:44 EDT, Route to Pharmacy Electronically, [id number], [facility]/pharmacy #113 Start Date: 11/11/18 Status: Ordered Dilaudid 2 [...] Maintenance, :06:25 EDT, Route to Pharmacy Electronically, [id number], [id number] Start Date: 12/03/18 Status: Ordered ibuprofen 600 mg oral tablet 600 mg, 1, tablet, By Mouth, Every 6 hours, # 50 tablet, Refills 0, Tot. Refills 0, Maintenance, 01/18/19 6:54:06 EST, Route to Pharmacy Electronically, [id number], [facility] #[id number] Start Date: 01/18/19 Status: Ordered oxyCODONE 5 [...] 11/11/18 14:30:48 EDT, Route to Pharmacy Electronically, [id number], [facility]/pharmacy #1130 Tablet Start Date: 11/11/18 Status: [...] of delivery(Confirmed) 2014 Active Nephrolithiasis(Confirmed) Active Uses Lao as primary spok en language(Confirmed) Active H/O Renal lithiasis(Confirmed) 12/18/11 Active Vital Signs Most recent to oldest [Reference Range]: 1 Oxygen Saturation [94-100 %] 100 % (10/18/19 5:40 PM) Pulse Rate [55-90 bpm] 90 bpm (10/18/19 5:40 PM) Mode of Delivery (Oxygen) Room air (10/18/19 5:40 PM) Social History Social History Type Response Smoking Status Never smoker entered on: 01/02/14 Sex Female
--- OUTSIDE RECORDS SUMMARY | 2023-01-29 14:29 | XMS_ITS | Continuity of Care Document ---
Author Name Unknown Organization [facility] ter Address [address] [place] [address]- Care Team Providers Care Medical Legal Investigator Name Role Phone Jay Aldridge Primary Care Physician [phone] Encounter [facility] Date(s): 10/07/21 - 11/06/[address] [address]- Attending Physician: Nichole Cortez NP Admitting Physician: Nichole Cortez NP Referring Physician: Nichole Cortez NP Allergies, Adverse Reactions, Alerts Substance Reaction Severity [...] 11/11/18 14:30:44 EDT, Route to Pharmacy Electronically, [id number], [facility]/pharmacy #1132 Start Date: 11/11/18 Status: Ordered Dilaudid 2 [...] mg, 1, capsule, By Mouth, Daily, # 7 tablet, Refills 0, Tot. Refills 0, Maintenance, 06/20/21 15:00:00 EDT, Route to Pharmacy Electronically, [facility] #[id number], Partial fill upon patient request if the prescription is for a schedule II o... Start Date: 06/20/21 Status: Ordered Flomax 0.4 mg oral capsule 0.4 mg, 1, capsule, By Mouth, Daily, # 90 capsule, Refills 0, Tot. Refills 0, Maintenance, :06:25 EDT, Route to Pharmacy Electronically, [id number], [id number] Start Date: 12/03/18 Status: Ordered ibuprofen 600 mg oral tablet 600 mg, 1, tablet, By Mouth, Every 6 hours, # 50 tablet, Refills 0, Tot. Refills 0, Maintenance, 01/18/19 6:54:06 EST, Route to Pharmacy Electronically, [id number], [facility] #[id number] Start Date: 01/18/19 Status: Ordered ondansetron 4 mg oral tablet, disintegrating 1 tablet = 4 mg, By Mouth, Every 8 hours, PRN as needed for nausea/vomiting, # 12 tablet, 0 Refills, Maintenance, 06/20/21 15:00:00 EDT, DIS Tablet, [facility] #[id number], Partial fill upon patient request if the prescription is for a schedule I... Start Date: 06/20/21 Status: Ordered oxyCODONE 5 mg oral tablet [...] 11/11/18 14:30:48 EDT, Route to Pharmacy Electronically, [id number], [facility]/pharmacy #1130 Tablet Start Date: 11/11/18 Status: Ordered [...] of delivery(Confirmed) 2014 Active Nephrolithiasis(Confirmed) Active Uses Ghanaian as primary spok en language(Confirmed) Active Obese class I(Confirmed) Active H/O Renal lithiasis(Confirmed) 12/18/11 Active Social History Social History Type Response Smoking Status Never smoker entered on: 01/02/14 Sex Female Care Team Personnel Name: Jay Aldridge Address: [address] [place] [address]-
--- OUTSIDE RECORDS SUMMARY | 2023-01-29 14:29 | XMS_ITS | Continuity of Care Document ---
Author Name Unknown Organization [facility] Address [address] [place] [address]- Care Team Providers Care Hull Sorter Name Role Phone Jay Aldridge Primary Care Physician Encounter [facility] [place] Date(s): 11/19/20 - 12/19/[address] [address] Attending Physician: Yousif Cox Admitting Physician: AdmYousif gonzalez Referring Physician: AdmtrYousif Allergies, Adverse Reactions, Alerts Substance Reaction Severity [...] 11/11/18 14:30:44 EDT, Route to Pharmacy Electronically, [id number], [facility]/pharmacy #1130 Start Date: 11/11/18 Status: Ordered [...] Maintenance, :06:25 EDT, Route to Pharmacy Electronically, [id number], [facility] #[id number] Start Date: 12/03/18 Status: Ordered ibuprofen 600 mg oral tablet 600 mg, 1, tablet, By Mouth, Every 6 hours, # 50 tablet, Refills 0, Tot. Refills 0, Maintenance, 01/18/19 6:54:06 EST, Route to Pharmacy Electronically, [id number], [facility] #[id number] Start Date: 01/18/19 Status: Ordered oxyCODONE 5 [...] 11/11/18 14:30:48 EDT, Route to Pharmacy Electronically, [id number], [facility]/pharmacy #1130 Tablet Start Date: 11/11/18 Status: [...]
--- OUTSIDE RECORDS SUMMARY | 2023-01-29 14:29 | XMS_ITS | Continuity of Care Document ---
Author Name Unknown Organization [facility] Address [address] [place] [address]- Care Team Providers Care Machine Feeder Name Role Phone Jay Aldridge Primary Care Physician [phone] Encounter [facility] Date(s): 10/19/20 - 12/19/[address] [address] Attending Physician: Not on Staff, Attending MD [...] 11/11/18 14:30:44 EDT, Route to Pharmacy Electronically, [id number], [facility]/pharmacy #1130 Start Date: 11/11/18 Status: Ordered Dilaudid [...] Maintenance, :06:25 EDT, Route to Pharmacy Electronically, [id number], [id number] Start Date: 12/03/18 Status: Ordered ibuprofen 600 mg oral tablet 600 mg, 1, tablet, By Mouth, Every 6 hours, # 50 tablet, Refills 0, Tot. Refills 0, Maintenance, 01/18/19 6:54:06 EST, Route to Pharmacy Electronically, [id number], [facility] #[id number] Start Date: 01/18/19 Status: Ordered oxyCODONE 5 [...] 11/11/18 14:30:48 EDT, Route to Pharmacy Electronically, [id number], [facility]/pharmacy #1130 Tablet Start Date: 11/11/18 [...] of delivery(Confirmed) 2014 Active Nephrolithiasis(Confirmed) Active Uses Tamazight as primary spok en language(Confirmed) Active H/O Renal lithiasis(Confirmed) 12/18/11 Active Social History Social History Type Response Smoking Status Never smoker entered on: 01/02/14 Sex Female
--- OUTSIDE RECORDS SUMMARY | 2023-01-29 14:29 | XMS_ITS | Continuity of Care Document ---
Author Name Unknown Organization [facility] Address [address] [place] [address]- Care Team Providers Care Slaughterer Religious Ritual Name Role Phone Jay Aldridge Primary Care Physician [phone] [place] [facility] [place] 11/09/[place] - 12/09/19 [facility] [address] [address]- [facility] Attending Physician: Admcarlos, Yousif Admitting Physician: Admtr, René8 Referring Physician: Admtr, [...] 11/11/18 14:30:44 EDT, Route to Pharmacy Electronically, [id number], [facility]/pharmacy #1139 Start Date: 11/11/18 Status: Ordered Dilaudid 2 [...] Maintenance, 199:06:25 EDT, Route to Pharmacy Electronically, [id number], [facility] #[id number] Start Date: 12/03/18 Status: Ordered ibuprofen 600 mg oral tablet 600 mg, 1, tablet, By Mouth, Every 6 hours, # 50 tablet, Refills 0, Tot. Refills 0, Maintenance, 01/18/19 6:54:06 EST, Route to Pharmacy Electronically, [id number], [facility] #[id number] Start Date: 01/18/19 Status: Ordered oxyCODONE 5 [...] 11/11/18 14:30:48 EDT, Route to Pharmacy Electronically, [id number], [facility]/pharmacy #1130 Tablet Start Date: 11/11/18 [...] of delivery(Confirmed) 2014 Active Nephrolithiasis(Confirmed) Active Uses Scottish as primary spok en language(Confirmed) Active H/O Renal lithiasis(Confirmed) 12/18/11 Active Social History Social History Type Response Smoking Status Never smoker entered on: 01/02/14 Sex Female
--- OUTSIDE RECORDS SUMMARY | 2023-01-29 14:29 | XMS_ITS | Continuity of Care Document ---
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 Name Role Phone Jay Aldridge Primary Care Physician Encounter [facility] Date(s): 07/11/19 - 08/12/[address] [address]- [facility] Attending Physician: Not on Staff, Attending MD [...] 11/11/18 14:30:44 EDT, Route to Pharmacy Electronically, [id number], [facility]/pharmacy #1136 Start Date: 11/11/18 Status: Ordered Dilaudid 2 [...] Maintenance, :06:25 EDT, Route to Pharmacy Electronically, [id number], [id number] Start Date: 12/03/18 Status: Ordered ibuprofen 600 mg oral tablet 600 mg, 1, tablet, By Mouth, Every 6 hours, # 50 tablet, Refills 0, Tot. Refills 0, Maintenance, 01/18/19 6:54:06 EST, Route to Pharmacy Electronically, [id number], [facility] #[id number] Start Date: 01/18/19 Status: Ordered oxyCODONE 5 [...] 11/11/18 14:30:48 EDT, Route to Pharmacy Electronically, [id number], [facility]/pharmacy #1130 Tablet Start Date: 11/11/18 [...] of delivery(Confirmed) 2014 Active Nephrolithiasis(Confirmed) Active Uses Paraguayan as primary spok en language(Confirmed) Active H/O Renal lithiasis(Confirmed) 12/18/11 Active Social History Social History Type Response Smoking Status Never smoker entered on: 01/02/14 Sex Female
--- OUTSIDE RECORDS SUMMARY | 2023-01-29 14:29 | XMS_ITS | Continuity of Care Document ---
Author Name Unknown Organization [facility] Address [address] [place] [address]- Care Team Providers Care Director Clinical Information Services Name Role Phone Coco PACHECO, Mikie Mike Primary Care Physician Encounter [facility] Date(s): 04/05/19 - 04/15/[address] [address] [facility] Attending Physician: Yousif Cox Admitting Physician: Yousif Cox Referring Physician: AdmtrYousif Allergies, Adverse Reactions, Alerts [...] 11/11/18 14:30:44 EDT, Route to Pharmacy Electronically, [id number], [facility]/pharmacy #1130 Start Date: 11/11/18 Status: Ordered [...] Maintenance, :06:25 EDT, Route to Pharmacy Electronically, [id number], [facility] #[id number] Start Date: 12/03/18 Status: Ordered ibuprofen 600 mg oral tablet 600 mg, 1, tablet, By Mouth, Every 6 hours, # 50 tablet, Refills 0, Tot. Refills 0, Maintenance, 01/18/19 6:54:06 EST, Route to Pharmacy Electronically, [id number], [facility] #[id number] Start Date: 01/18/19 Status: Ordered oxyCODONE 5 [...] 11/11/18 14:30:48 EDT, Route to Pharmacy Electronically, [id number], [facility]/pharmacy #1130 Tablet Start Date: 11/11/18 Status: [...] of delivery(Confirmed) 2014 Active Nephrolithiasis(Confirmed) Active Uses Bolivian as primary spok en language(Confirmed) Active H/O Renal lithiasis(Confirmed) 12/18/11 Active Social History Social History Type Response Smoking Status Never smoker entered on: 01/02/14 Sex Female
--- OUTSIDE RECORDS SUMMARY | 2023-01-29 14:29 | XMS_ITS | Continuity of Care Document ---
Author Name Unknown Organization [facility] Address [address] [place] [address]- Care Team Providers Care Fluid Dynamicist Name Role Phone Jay Aldridge Primary Care Physician Encounter [facility] Date(s): 12/26/22 - 12/26/[address] [address]- Encounter Diagnosis Flank pain(Final) - 12/26/22 Discharge Disposition: [facility]red [facility]term [facility] Attending Physician: Carlos Domínguez MD Admitting Physician: Carlos Domínguez MD Referring Physician: Not on Staff, Referring MD Allergies, Adverse Reactions, Alerts Substance Reaction Severity Status Macrobid Active Immunizations Given and Recorded Vaccine Date Status Refusal Reason tetanus/diphtheria/pertussis, acel(Tdap) 11/19/18 Given tetanus/diphtheria/pertussis, acel(Tdap) 03/29/14 Given influenza virus vaccine, inactivated 11/19/18 Give n influenza virus vaccine, inactivated 12/06/13 Give n influenza virus vaccine, inactivated 12/17/11 Give n Medications Dilaudid Inj 1 mg, Injection, IV Push Slowly, Every 15 minutes for 3 doses/times, PRN for Pain , Moderate, and SBP greater than 100, STAT, 12/26/22 13:54:00 EDT, Stop date Limited # of times Start Date: 12/26/22 Stop Date: 12/27/22 Status: Discontinued ibuprofen 600 mg oral tablet 600 mg, 1, tablet, By Mouth, 4 times a day, # 40 tablet, Refills 0, Tot. Refills 0, Maintenance, 12/27/22 5:32:00 EDT, Route to Pharmacy Electronically, [facility] #[id number], Partial fill uponpatient request if the prescription is for a schedu... Start Date: 12/27/22 Status: Ordered oxyCODONE 5 mg oral tablet 5 mg, 1, tablet, By Mouth, Every 6 hours, PRN, # 5 tablet, Refills 0, Tot. Refills 0, Acute 01/03/23 5:33:00 EDT, as needed for pain, 12/27/22 5:32:00 EDT, Route to Pharmacy Electronically, [facility] #[id number], Partial fill upon patient reques... Start Date: 12/27/22 Stop Date: 01/03/23 Status: Ordered Tylenol 325 mg oral tablet 650 mg, 2, tablet, By Mouth, Every 4 hours, PRN, # 40 tablet, Refills 0, Tot. Refills 0, Maintenance, for pain, 12/27/22 5:32:00 EDT, Route to Pharmacy Electronically, [facility] #[id number], Partial fill upon patient request if the prescription... Start Date: 12/27/22 Status: Ordered Problem List Condition Confirmation Course Effective Dates Status H ealth Status Informant Anxiety Confirmed Active H/O Chronic pelvic pain in female Confirmed Active H/O GDM Confirmed 2014 Active History of delivery Confirmed 2014 Active Nephrolithiasis Confirmed Active Uses Indonesian as primary spoken language Confirmed Active Obese class I Confirmed Active H/O Renal lithiasis Confirmed 12/18/11 Active Results Radiology Reports * Exam Date Time Procedure Performing Provider Status 12/26/22 5:13 PM US Pelvic Transabdominal Kyra Bullock; Auth (Verified) Notes: (US Pelvic Transabdominal) Reason For Exam: Pelvic Pain;Other: RESULT: US Pelvic Transabdominal US Pelvic Doppler Comp, US Pelvic Transvaginal, US Pelvic Transabdominal Hx of Present Illness: 2 days left flank pain, hx of kidney stones. Last night worse.; Reason: Other:; Pelvic Pain; Clinical Question(s): Other:; Torsion; Order Comment: US Duplex Pelvis Art Vein Flow Comp Prep COMPARISON: CT from earlier the same day.. TECHNIQUE: Transabdominal and transvaginal pelvic ultrasound with grayscale, color Doppler, and spectral Doppler analysis. FINDINGS: UTERUS: Size: 9.4 x 4.7 x 5.2 cm, volume 122.5 cc. Endometrial thickness: 1.0 cm. Morphology: Normal configuration and echotexture. RIGHT OVARY: Size: 3.4 x 2.0 x 1.8 cm, volume 6.6 cc. Morphology: Normal echotexture. No pathologic cysts or mass. Normal arterial and venous waveforms. LEFT OVARY: Size: 5.8 x 3.9 x 5.9 cm, volume 69.8 cc. Morphology: Left ovary is enlarged and contains a 4.7 x 4.3 cm complex cyst containing internal debris and septations compatible with a hemorrhagic cyst. No mass. Normal arterial and venous waveforms. ADNEXA: Normal. No adnexal masses or fluid collections. IMPRESSION: No evidence for torsion. 4.7 cm left ovarian hemorrhagic cyst. This corresponds to the lesion seen on earlier CT. WSN: [id number] Ordering Physician: Carlos Domínguez Dictated By: Shahab Kimball MD Dictated Date/Time: 12/26/22 5:32 pm Reviewed By: Shahab Kimball MD Signed By: Shahab Kimball MD Signed Date/Time: 12/26/22 5:32 pm Transcribed By: GIA Transcribed Date/Time: 12/26/22 5:27 pm * Exam Date Time Procedure Performing Provider Status 12/26/22 5:13 PM US Pelvic Transvaginal Jelena Bullock (Verified) Notes: (US Pelvic Transvaginal) Reason For Exam: Pelvic Pain;Other: RESULT: US Pelvic Transvaginal US Pelvic Doppler Comp, US Pelvic Transvaginal, US Pelvic Transabdominal Hx of Present Illness: 2 days left flank pain, hx of kidney stones. Last night worse.; Reason: Other:; Pelvic Pain; Clinical Question(s): Other:; Torsion; Order Comment: US Duplex Pelvis Art Vein Flow Comp Prep COMPARISON: CT from earlier the same day.. TECHNIQUE: Transabdominal and transvaginal pelvic ultrasound with grayscale, color Doppler, and spectral Doppler analysis. FINDINGS: UTERUS: Size: 9.4 x 4.7 x 5.2 cm, volume 122.5 cc. Endometrial thickness: 1.0 cm. Morphology: Normal configuration and echotexture. RIGHT OVARY: Size: 3.4 x 2.0 x 1.8 cm, volume 6.6 cc. Morphology: Normal echotexture. No pathologic cysts or mass. Normal arterial and venous waveforms. LEFT OVARY: Size: 5.8 x 3.9 x 5.9 cm, volume 69.8 cc. Morphology: Left ovary is enlarged and contains a 4.7 x 4.3 cm complex cyst containing internal debris and septations compatible with a hemorrhagic cyst. No mass. Normal arterial and venous waveforms. ADNEXA: Normal. No adnexal masses or fluid collections. IMPRESSION: No evidence for torsion. 4.7 cm left ovarian hemorrhagic cyst. This corresponds to the lesion seen on earlier CT. WSN: [id number] Ordering Physician: Carlos Domínguez Dictated By: Shahab Kimball MD Dictated Date/Time: 12/26/22 5:32 pm Reviewed By: Shahab Kimball MD Signed By: Shahab Kimball MD Signed Date/Time: 12/26/22 5:32 pm Transcribed By: IGA Transcribed Date/Time: 12/26/22 5:27 pm * Exam Date Time Procedure Performing Provider Status 12/26/22 5:13 PM US Pelvic Doppler Comp Jelena Bullock; Vinod (Verified) Notes: (US Pelvic Doppler Comp) Reason For Exam: Pelvic Pain;Other: RESULT: US Pelvic Doppler Comp US Pelvic Doppler Comp, US Pelvic Transvaginal, US Pelvic Transabdominal Hx of Present Illness: 2 days left flank pain, hx of kidney stones. Last night worse.; Reason: Other:; Pelvic Pain; Clinical Question(s): Other:; Torsion; Order Comment: US Duplex Pelvis Art Vein Flow Comp Prep COMPARISON: CT from earlier the same day.. TECHNIQUE: Transabdominal and transvaginal pelvic ultrasound with grayscale, color Doppler, and spectral Doppler analysis. FINDINGS: UTERUS: Size: 9.4 x 4.7 x 5.2 cm, volume 122.5 cc. Endometrial thickness: 1.0 cm. Morphology: Normal configuration and echotexture. RIGHT OVARY: Size: 3.4 x 2.0 x 1.8 cm, volume 6.6 cc. Morphology: Normal echotexture. No pathologic cysts or mass. Normal arterial and venous waveforms. LEFT OVARY: Size: 5.8 x 3.9 x 5.9 cm, volume 69.8 cc. Morphology: Left ovary is enlarged and contains a 4.7 x 4.3 cm complex cyst containing internal debris and septations compatible with a hemorrhagic cyst. No mass. Normal arterial and venous waveforms. ADNEXA: Normal. No adnexal masses or fluid collections. IMPRESSION: No evidence for torsion. 4.7 cm left ovarian hemorrhagic cyst. This corresponds to the lesion seen on earlier CT. WSN: [id number] Ordering Physician: Carlos Domínguez Dictated By: Shahab Kimball MD Dictated Date/Time: 12/26/22 5:32 pm Reviewed By: Shahab Kimball MD Signed By: Shahab Kimball MD Signed Date/Time: 12/26/22 5:32 pm Transcribed By: GIA Transcribed Date/Time: 12/26/22 5:27 pm * Exam Date Time Procedure Performing Provider Status 12/26/22 3:[address] Abdomen and Pelvi s W/O Contrast Jareth Prescott; Auth (Verified) Notes: (CT Abdomen and Pelvis W/O Contrast) Reason For Exam: Flank pain, kidney stone suspected;Other: RESULT: CT Abdomen and Pelvis W/O Contrast CT Abdomen and Pelvis W/O Contrast Hx of Present Illness: 2 days left flank pain, hx of kidney stones. Last night worse. Clinical Question(s): Calculus; TECHNIQUE: Spiral CT through the abdomen and pelvis without IV contrast formatted in 3 planes. Thisstudy was performed without oral contrast. Weight- based protocol using automatic tube modulation was used to optimize exposure parameters. CTDIvol Body: 12.71 mGy, DLP Body: 602 mGy*cm. COMPARISON: Multiple priors, most recent CT abdomen and pelvis 12/08/2022 FINDINGS: [employer] View Findings, Lines and Tubes: None. Visualized Chest: The visualized costophrenic angles are clear. No pleural effusion. Diaphragm: Normal. Liver: Partially imaged. Unremarkable. Gallbladder: Status post cholecystectomy. Bile ducts: No biliary ductal dilation. Spleen: Normal. Pancreas: Normal. Adrenal glands: Normal. Kidneys and ureters: Few nonobstructing bilateral renal stones measuring up to 0.4 cm, unchanged from 12/08/2022. No ureteral calculi or hydroureteronephrosis is seen. Bladder: The bladder is decompressed, limiting evaluation. Reproductive organs: New 5.7 cm maximal dimension near fluid density left adnexal lesion (series 2:Image 74) likely an ovarian cyst. No surrounding inflammatory changes to suggest torsion. Normal-appearing uterus and right ovary. Stomach, small bowel, and large bowel: Unremarkable stomach, small large bowel. No evidence of bowel obstruction or inflammation. Appendix: Not seen, but no evidence of appendicitis. Peritoneum and retroperitoneum: No ascites or pneumoperitoneum. No omental or mesenteric lesions. Lymph nodes: No enlarged lymph nodes. Blood vessels: Normal. No aneurysm. Abdominal and pelvic wall: Unremarkable. Bones: No acute abnormality. IMPRESSION: 1. There is a new 5-6 cm low-density left adnexal lesion which was not visualized on 12/08/2022 likely an ovarian cyst. No surrounding inflammatory changes or intraperitoneal free fluid is seen to suggest torsion, however ultrasound evaluation including Doppler waveform interrogation is recommended to further evaluate. 2. There are a few small bilateral renal calculi, no ureteral calculi or hydroureteronephrosis. Findings and recommendation discussed with Carlos Domínguez MD via telephone 12/26/2022 4:03 PM with acknowledgement received. I have personally reviewed the images and I agree with this report. WSN: [id number] Ordering Physician: Carlos Domínguez Dictated By: Kellee Moreno MD Dictated Date/Time: 12/26/22 4:08 pm Reviewed By: Jan Mac MD Signed By: Jan Mac MD Signed Date/Time: 12/26/22 4:13 pm Transcribed By: GIA Transcribed Date/Time: 12/26/22 3:25 pm Vital Signs Most recent to oldest [Reference Range]: 1 2 3 Height 155 cm (12/26/22 1:03 PM) 155 cm (12/26/22 9:03 AM) Weight 82.9 kg (12/26/22 9:03 AM) Oxygen Saturation [94-100 %] 100 % (12/26/22 5:00 PM) 99 % (12/26/22 1:03 PM) 100 % (12/26/22 9:03 AM) Pulse Rate [55-90 bpm] 76 bpm (12/26/22 5:00 PM) 71 bpm (12/26/22 1:03 PM) 92 bpm *H* (12/26/22 9:03 AM) Blood Pressure [90-138/55-84 mm Hg] 111/66mm Hg (12/26/22 5:00 PM) 121/79mm Hg (12/26/22 1:03 PM) 133/86mm Hg (12/26/22 9:03 AM) Respiratory Rate [16-30 br/min] 18 br/min (12/26/22 6:10 PM) 18 br/min (12/26/22 5:00 PM) 18 br/min (12/26/22 2:22 PM) Temperature [96.8-100.4 DegF] 97.6 DegF (12/26/22 5:00 PM) 97.7 DegF (12/26/22 1:03 PM) 98.0 DegF (12/26/22 9:03 AM) Mode of Delivery (Oxygen) Room air (12/26/22 5:00 PM) Room air (12/26/22 1:03 PM) Room air (12/26/22 9:03 AM) Blood pressure sites Arm, left (12/26/22 5:00 PM) Arm, right (12/26/22 1:03 PM) Arm, left (12/26/22 9:03 AM) Temperature Route Oral (12/26/22 5:00 PM) Oral (12/26/22 1:03 PM) Temporal (12/26/22 9:03 AM) Dry Weight 82.9 kg (12/26/22 9:03 AM) Weight Obtained Via Standing scale (12/26/22 9:03 AM) Dry Weight Obtained Via Standing scale (12/26/22 9:03 AM) Social History Social History Type Response Smoking Status Never smoker entered on: 01/02/14 Sex Patient Care team information Care Team Personnel Name: Jay Aldridge Position: S Outreach Member Role: PCP Address: Address: [address] [place] [address]- Name: Jay Gotti Position: S Outreach Member Role: Lifetime Consulting Physician Address: Address: [address] [place] [address]- Name: Juliet Schumacher RN Position: S RN Member Role: Primary Care Nurse Name: Cynthia Narayanan RN Position: S RN Member Role: Primary Care Nurse Name: Nayeli Bhatt RN Position: [facility] ED RN W/OE and Tasks Member Role: Patient Care Provider Name: Catrachita PACHECO, Carlos Cummings Position: [facility] Resident Member Role: Admitting Physician Address: Address: [address] [place] [address]- Name: Zo Darling Position: [facility] ED TA [facility] Member Role: Patient Care Provider Care Team Related Persons Name: RONI CASILLAS Address: [address] Address: home [address] [place] [address] [place] Name: ELISSA CASILLAS Address: home [address] [place] [address] Name: GEORGIANA SPANN Address: home [address] [place] [address] Name: STEVE CALLES Address: home [address] [place] [address] Name: PAVAN CALLES Address: home [address] [place] [address] Name: PAVAN CALLES Address: home [address] [place] [address]
--- OUTSIDE RECORDS SUMMARY | 2023-01-29 14:29 | XMS_ITS | Continuity of Care Document ---
Author Name Unknown Organization [facility] Address [address] [place] [address]- Care Team Providers Care Contracting Manager Name Role Phone Coco PACHECO, Mikie Mike Primary Care Physician [place] [facility] [place] - 03/27/[address] [address]- [facility] Attending Physician: Not on Staff, [...] 11/11/18 14:30:44 EDT, Route to Pharmacy Electronically, [id number], [facility]/pharmacy #[id number] Start Date: 11/11/18 Status: Ordered Dilaudid 2 [...] Maintenance, 199:06:25 EDT, Route to Pharmacy Electronically, [id number], [facility] #[id number] Start Date: 12/03/18 Status: Ordered ibuprofen 600 mg oral tablet 600 mg, 1, tablet, By Mouth, Every 6 hours, # 50 tablet, Refills 0, Tot. Refills 0, Maintenance, 01/18/19 6:54:06 EST, Route to Pharmacy Electronically, [id number], [facility] #[id number] Start Date: 01/18/19 Status: Ordered oxyCODONE 5 [...] 11/11/18 14:30:48 EDT, Route to Pharmacy Electronically, [id number], [facility]/pharmacy #1130 [...] of delivery(Confirmed) 2014 Active Nephrolithiasis(Confirmed) Active Uses Persian as primary spok en language(Confirmed) Active H/O Renal lithiasis(Confirmed) 12/18/11 Active Social History Social History Type Response Smoking Status Never smoker entered on: 01/02/14 Sex Female
--- OUTSIDE RECORDS SUMMARY | 2023-01-29 14:29 | XMS_ITS | Continuity of Care Document ---
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 Start Date: 04/30/22 Status: Ordered PEG-3350 with Electrolytes (Eqv-NuLYTELY) oral powder for reconstitution See Instructions, as directed, # 1 each, 0 Refills, Maintenance, 05/06/22 10:51:00 EST, [facility] #[id number], ok to sub for any gallon prep, [...] tablet,0 Refills, Maintenance, 04/30/22 14:00:00 EST, Tablet, [facility], Partial fill upon patient request, 156, cm, 04/30/22 6:51:00 EST, [facility]... Start Date: 04/30/22 Status: Ordered Problem List Condition Confirmation Course Effective Dates Status H ealth Status Informant Anxiety Confirmed Active H/O Chronic pelvic pain in female Confirmed Active H/O GDM Confirmed 2014 Active History of delivery Confirmed 2014 Active Nephrolithiasis Confirmed Active Uses British as primary spoken language Confirmed Active Obese class I Confirmed Active H/O Renal lithiasis Confirmed 12/18/11 Active Social History Social History Type Response Smoking Status Never smoker entered on: 01/02/14 Sex Female Patient Care team information Care Team Personnel Name: Jay Aldridge Position: [facility] Outreach Member Role: PCP Address: Address: [address] [place] [address]- Name: Jay Gotti Position: [facility] Outreach Member Role: Lifetime Consulting Physician Address: Address: [address] [place] [address]- Name: Juliet Schumacher RN Position: S RN Member Role: Primary Care Nurse Name: Cynthia Narayanan RN Position: S RN Member Role: Primary Care Nurse Care Team Related Persons Name: RONI CASILLAS Address: [address] Address: home [address] [place] [address] [place] Name: ELISSA CASILLAS Address: home [address] [place] [address] Name: GEORGIANA SPANN Address: home [address] [address] Name: STEVE CALLES Address: home [address] [place] [address] Name: PAVAN CALLES Address: home [address] [place] [address] Name: PAVAN CALLES Address: home [address] [facility] [address] [place] [address]
--- OUTSIDE RECORDS SUMMARY | 2023-01-29 14:30 | XMS_ITS | Continuity of Care Document ---
Author Name Unknown Organization [facility] Address [address] [place] [address]- Care Team Providers Care Eligibility And Occupancy Interviewer Name Role Phone Jay Aldridge Primary Care Physician Encounter [facility] [place] Date(s): 06/20/21 - 06/20/[address] [address]- Encounter Diagnosis Kidney stone(Final) - 06/20/21 Discharge Disposition: A-D/C Home Attending Physician: Sandro Johnson MD Admitting Physician: Sandro Johnson MD Referring Physician: Not on Staff, Referring [...] 11/11/18 14:30:44 EDT, Route to Pharmacy Electronically, [id number], [facility]/pharmacy #[id number] Start Date: 11/11/18 Status: Ordered Dilaudid 2 [...] 06/20/21 15:00:00 EDT, Route to Pharmacy Electronically, [facility] #[id number], Partial fill upon patient request if the prescription is for a schedule II o... Start Date: 06/20/21 Status: Ordered Flomax 0.4 mg oral capsule 0.4 mg, 1, capsule, By Mouth, Daily, # 90 capsule, Refills 0, Tot. Refills 0, Maintenance, :06:25 EDT, Route to Pharmacy Electronically, [id number], [facility] #[id number] Start Date: 12/03/18 Status: Ordered ibuprofen 600 mg oral tablet 600 mg, 1, tablet, By Mouth, Every 6 hours, # 50 tablet, Refills 0, Tot. Refills 0, Maintenance, 01/18/19 6:54:06 EST, Route to Pharmacy Electronically, [id number], [facility] #[id number] Start Date: 01/18/19 Status: Ordered MorPHINE Immediate Release Tablet 15 mg, Tablet, By Mouth, Once, STAT, 06/20/21 13:16:00 EDT, Stop date 06/20/21 13:16:00 EDT Start Date: 06/20/21 Stop Date: 06/20/21 Status: Completed ondansetron 4 mg oral tablet, disintegrating 1 tablet = 4 mg, By Mouth, Every 8 hours, PRN as needed for nausea/vomiting, # 12 tablet, 0 Refills, Maintenance, 06/20/21 15:00:00 EDT, DIS Tablet, [facility] #[id number], Partial fill upon patient request if the prescription is for a schedule I... Start Date: 06/20/21 Status: Ordered oxyCODONE 5 mg oral tablet 5 mg, 1, tablet, By Mouth, Every 6 hours, PRN, for 3 days, # 12 tablet, Refills 0, Tot. Refills 0, Acute 06/23/21 15:01:00 EDT, for pain, 06/20/21 15:01:00 EDT, Route to Pharmacy Electronically, [facility][id number], Partial fill upon patient r... Start Date: 06/20/21 Stop Date: 06/23/21 Status: Ordered oxyCODONE 5 mg oral tablet [...] 11/11/18 14:30:48 EDT, Route to Pharmacy Electronically, [id number], [facility]/pharmacy #1130 Tablet Start Date: 11/11/18 Status: [...] of delivery(Confirmed) 2014 Active Nephrolithiasis(Confirmed) Active Uses Emirati as primary spok en language(Confirmed) Active Obese class I(Confirmed) Active H/O Renal lithiasis(Confirmed) 12/18/11 Active Vital Signs Most recent to oldest [Reference Range]: 1 2 3 Height 155 cm (06/20/21 1:14 PM) 155 cm (06/20/21 8:27 AM) Weight 78.5 kg (06/20/21 1:14 PM) 78.5 kg (06/20/21 8:27 AM) Oxygen Saturation [94-100 %] 100 % (06/20/21 2:42 PM) 100 % (06/20/21 1:14 PM) 100 % (06/20/21 8:27 AM) Pulse Rate [55-90 bpm] 80 bpm (06/20/21 2:42 PM) 79 bpm (06/20/21 1:14 PM) 83 bpm (06/20/21 12:50 PM) Body Mass Index [18.5-24.99] 32.67 *>HHI* (06/20/21 1:14 PM) 32.67 *>HHI* (06/20/21 8:27 AM) Blood Pressure [90-138/55-84 mm Hg] 121/74mm Hg (06/20/21 2:42 PM) 122/66mm Hg (06/20/21 1:14 PM) 136/68mm Hg (06/20/21 12:50 PM) Respiratory Rate [16-30 br/min] 18 br/min (06/20/21 2:42 PM) 18 br/min (06/20/21 1:21 PM) 20 br/min (06/20/21 1:14 PM) Temperature [96.8-100.4 DegF] 98.1 DegF (06/20/21 1:14 PM) 97.6 DegF (06/20/21 12:50 PM) 98.4 DegF (06/20/21 10:34 AM) Mode of Delivery (Oxygen) Room air (06/20/21 2:42 PM) Room air (06/20/21 1:14 PM) Room air (06/20/21 8:27 AM) Blood pressure sites Arm, left (06/20/21 2:42 PM) Arm, left (06/20/21 1:14 PM) Arm, right (06/20/21 12:50 PM) Temperature Route Oral (06/20/21 1:14 PM) Oral (06/20/21 12:50 PM) Oral (06/20/21 10:34 AM) Dry Weight 78.5 kg (06/20/21 1:14 PM) 78.5 kg (06/20/21 8:27 AM) Weight Obtained Via Standing scale (06/20/21 8:27 AM) Dry Weight Obtained Via Standing scale (06/20/21 8:27 AM) Social History Social History Type Response Smoking Status Never smoker entered on: 01/02/14 Sex Female
--- OUTSIDE RECORDS SUMMARY | 2023-01-29 14:30 | XMS_ITS | Continuity of Care Document ---
Author Name Unknown Organization [facility] Address [address], [address] [place] [address]- Care Team Providers Care Medical Record Librarian Name Role Phone Jay Aldridge Primary Care Physician [phone] Encounter [facility] Date(s): 10/15/20 - 11/14/20 [facility] [address], [address] [place] [address]- Allergies, Adverse Reactions, Alerts Substance Reaction Severity [...] Acute :24:00 EDT, 11/13/20 9:24:00 EDT, Capsule, [facility] #[id number], Partial fill upon patient request if the prescription is for a schedule II opi... Start Date: 11/13/20 Stop Date: 11/23/20 Status: Ordered Colace sodium 100 mg oral capsule 100 mg, 1, capsule, By Mouth, 2 times a day, PRN, # 60 capsule, Refills 0, Tot. Refills 0, Maintenance, for constipation, 11/11/18 14:30:44 EDT, Route to Pharmacy Electronically, [id number], [facility]/pharmacy #1130 Start Date: 11/11/18 Status: Ordered [...] Maintenance, 199:06:25 EDT, Route to Pharmacy Electronically, [id number], [facility][id number] Start Date: 12/03/18 Status: Ordered ibuprofen 600 mg oral tablet 600 mg, 1, tablet, By Mouth, Every 6 hours, # 50 tablet, Refills 0, Tot. Refills 0, Maintenance, 01/18/19 6:54:06 EST, Route to Pharmacy Electronically, [id number], [facility] #[id number] Start Date: 01/18/19 Status: Ordered oxyCODONE 5 [...] 11/11/18 14:30:48 EDT, Route to Pharmacy Electronically, [id number], [facility]/pharmacy #1130 Tablet Start Date: 11/11/18 Status: Ordered Slow Fe (as elemental iron) 45 mg oral tablet, extended release 1 tablet = 45 mg, By Mouth, Every other day, # 30 tablet, 6 Refills, Maintenance, 07/09/18 9:37:35 EDT, ER Tablet Start Date: 07/09/18 Status: Ordered traMADol 50 mg oral tablet 1 tablet = 50 mg, By Mouth, Every 4 hours, PRN Pain , Severe, for 3 days, # 12 tablet, 0 Refills, Acute 11/16/20 9:21:00 EDT, 11/13/20 9:21:00 EDT, Partial fill upon patient request if the prescription is for a schedule II opioid drug. Start Date: 11/13/20 Stop Date: 11/16/20 Status: Ordered Tylenol 325 mg oral capsule [...] of delivery(Confirmed) 2014 Active Nephrolithiasis(Confirmed) Active Uses Sami as primary spok en language(Confirmed) Active H/O Renal lithiasis(Confirmed) 12/18/11 Active Social History Social History Type Response Smoking Status Never smoker entered on: 01/02/14 Sex Female
--- OUTSIDE RECORDS SUMMARY | 2023-01-29 14:30 | XMS_ITS | Continuity of Care Document ---
Author Name Unknown Organization [facility] Address [address] [place] [address]- Care Team Providers Care Start Up Specialist Name Role Phone Coco PACHECO, Mikie Mike Primary Care Physician [place] [facility] [place] 11/19/18 - 02/27/[address] [address]- [facility] Attending Physician: Not on Staff, Attending MD [...] 11/11/18 14:30:44 EDT, Route to Pharmacy Electronically, [id number], [facility]/pharmacy #[id number] Start Date: 11/11/18 Status: Ordered Dilaudid 2 [...] Maintenance, 199:06:25 EDT, Route to Pharmacy Electronically, [id number], [facility][id number] Start Date: 12/03/18 Status: Ordered ibuprofen 600 mg oral tablet 600 mg, 1, tablet, By Mouth, Every 6 hours, # 50 tablet, Refills 0, Tot. Refills 0, Maintenance, 01/18/19 6:54:06 EST, Route to Pharmacy Electronically, [id number], [facility] #[id number] Start Date: 01/18/19 Status: Ordered oxyCODONE 5 [...] 11/11/18 14:30:48 EDT, Route to Pharmacy Electronically, [id number], [facility]/pharmacy #1130 Tablet Start Date: 11/11/18 Status: [...] of delivery(Confirmed) 2014 Active Nephrolithiasis(Confirmed) Active Uses Thai as primary spok en language(Confirmed) Active H/O Renal lithiasis(Confirmed) 12/18/11 Active Social History Social History Type Response Smoking Status Never smoker entered on: 01/02/14 Sex Female
--- OUTSIDE RECORDS SUMMARY | 2023-01-29 14:30 | XMS_ITS | Continuity of Care Document ---
Author Name Unknown Organization [facility] Address [address] [place] [address]- Care Team Providers Care Bat Carrier Name Role Phone Jay Aldridge Primary Care Physician [place] [facility] [place] 09/07/[address] [address]- [facility] Attending Physician: AdmRené gonzalez8 Admitting Physician: AdmtrYousif Referring Physician: Admtr, Ar8 Allergies, Adverse Reactions, [...] 11/11/18 14:30:44 EDT, Route to Pharmacy Electronically, [id number], [facility]/pharmacy #1130 Start Date: 11/11/18 Status: Ordered [...] Maintenance, :06:25 EDT, Route to Pharmacy Electronically, [id number], [facility] #[id number] Start Date: 12/03/18 Status: Ordered ibuprofen 600 mg oral tablet 600 mg, 1, tablet, By Mouth, Every 6 hours, # 50 tablet, Refills 0, Tot. Refills 0, Maintenance, 01/18/19 6:54:06 EST, Route to Pharmacy Electronically, [id number], [facility] #[id number] Start Date: 01/18/19 Status: Ordered oxyCODONE 5 [...] 11/11/18 14:30:48 EDT, Route to Pharmacy Electronically, [id number], [facility]/pharmacy #1130 Tablet Start Date: 11/11/18 Status: [...] of delivery(Confirmed) 2014 Active Nephrolithiasis(Confirmed) Active Uses Danish as primary spok en language(Confirmed) Active H/O Renal lithiasis(Confirmed) 12/18/11 Active Social History Social History Type Response Smoking Status Never smoker entered on: 01/02/14 Sex Female"
--- OUTSIDE RECORDS SUMMARY | 2023-01-29 14:30 | XMS_ITS | Continuity of Care Document ---
Author Name Unknown Organization [facility] Address [address] [place] [address]- Care Team Providers Care Dictating Machine Mechanic Name Role Phone Jay Aldridge Primary Care Physician Encounter [facility] [place] Date(s): 07/13/19 - 08/18/19 [facility] [address] [address]- [facility] Attending Physician: Antoinette Altman MD Admitting Physician: Antoinette Altman MD Referring Physician: Delonte Rivera DO Allergies, Adverse Reactions, Alerts Substance Reaction Severity [...] 11/11/18 14:30:44 EDT, Route to Pharmacy Electronically, [id number], [facility]/pharmacy #1130 Start Date: 11/11/18 Status: Ordered [...] Maintenance, 199:06:25 EDT, Route to Pharmacy Electronically, [id number], [facility] Start Date: 12/03/18 Status: Ordered ibuprofen 600 mg oral tablet 600 mg, 1, tablet, By Mouth, Every 6 hours, # 50 tablet, Refills 0, Tot. Refills 0, Maintenance, 01/18/19 6:54:06 EST, Route to Pharmacy Electronically, [id number], [facility] #[id number] Start Date: 01/18/19 Status: Ordered oxyCODONE 5 [...] 11/11/18 14:30:48 EDT, Route to Pharmacy Electronically, [id number], [facility]/pharmacy #1130 Tablet Start Date: [...] of delivery(Confirmed) 2014 Active Nephrolithiasis(Confirmed) Active Uses Tajik as primary spok en language(Confirmed) Active H/O Renal lithiasis(Confirmed) 12/18/11 Active Social History Social History Type Response Smoking Status Never smoker entered on: 01/02/14 Sex Female
--- OUTSIDE RECORDS SUMMARY | 2023-01-29 14:30 | XMS_ITS | Continuity of Care Document ---
Author Name Unknown Organization [facility] Address [address] [place] [address]- Care Team Providers Care Editor Farm Journal Name Role Phone Mikie Sepulveda MD Primary Care Physician [place] [facility] [place] 03/22/[place] - 05/05/[address] [address]- [facility] Attending Physician: Not on Staff, Attending MD [...] 11/11/18 14:30:44 EDT, Route to Pharmacy Electronically, [id number], [facility]/pharmacy #1130 Start Date: 11/11/18 Status: [...] Maintenance, :06:25 EDT, Route to Pharmacy Electronically, [id number], [facility] Start Date: 12/03/18 Status: Ordered ibuprofen 600 mg oral tablet 600 mg, 1, tablet, By Mouth, Every 6 hours, # 50 tablet, Refills 0, Tot. Refills 0, Maintenance, 01/18/19 6:54:06 EST, Route to Pharmacy Electronically, [id number], [facility] #[id number] Start Date: 01/18/19 Status: Ordered oxyCODONE 5 [...] 11/11/18 14:30:48 EDT, Route to Pharmacy Electronically, [id number], [facility]/pharmacy #1130 Tablet Start Date: [...] of delivery(Confirmed) 2014 Active Nephrolithiasis(Confirmed) Active Uses Italian as primary spok en language(Confirmed) Active H/O Renal lithiasis(Confirmed) 12/18/11 Active Social History Social History Type Response Smoking Status Never smoker entered on: 01/02/14 Sex Female
--- OUTSIDE RECORDS SUMMARY | 2023-01-29 14:30 | XMS_ITS | Continuity of Care Document ---
Author Name Unknown Organization [facility] Address [address], [address], [address] [place] [address]- Care Team Providers Care Air Brake Mechanic Name Role Phone Jay Aldridge Primary Care Physician Encounter [facility] Date(s): 12/09/19 - 01/08/20 [facility] [address], [address] [place] [address] Attending Physician: Yousif Cox Admitting Physician: AdmtrYousif Referring Physician: Admtr, Ar8 [...] 11/11/18 14:30:44 EDT, Route to Pharmacy Electronically, [id number], [facility]/pharmacy #1135 Start Date: 11/11/18 Status: Ordered Dilaudid 2 [...] Maintenance, :06:25 EDT, Route to Pharmacy Electronically, [id number], [facility][id number] Start Date: 12/03/18 Status: Ordered ibuprofen 600 mg oral tablet 600 mg, 1, tablet, By Mouth, Every 6 hours, # 50 tablet, Refills 0, Tot. Refills 0, Maintenance, 01/18/19 6:54:06 EST, Route to Pharmacy Electronically, [id number], [facility] #[id number] Start Date: 01/18/19 Status: Ordered oxyCODONE 5 [...] 11/11/18 14:30:48 EDT, Route to Pharmacy Electronically, [id number], [facility]/pharmacy #1130 Tablet Start Date: 11/11/18 Status: [...] of delivery(Confirmed) 2014 Active Nephrolithiasis(Confirmed) Active Uses English as primary spok en language(Confirmed) Active H/O Renal lithiasis(Confirmed) 12/18/11 Active Social History Social History Type Response Smoking Status Never smoker entered on: 01/02/14 Sex Female
--- OUTSIDE RECORDS SUMMARY | 2023-01-29 14:30 | XMS_ITS | Continuity of Care Document ---
Author Name Unknown Organization [facility] Address [address] [place] [address]- Care Team Providers Care Secret Service Agent Name Role Phone Coco PACHECO, Mikie Mike Primary Care Physician [phone] Encounter [facility] [place] Date(s): 02/25/19 - 03/07/[address] [address]- [facility] Attending Physician: Yousif Cox Admitting Physician: AdmYousif [...] 11/11/18 14:30:44 EDT, Route to Pharmacy Electronically, [id number], [facility]/pharmacy #1130 Start Date: 11/11/18 Status: Ordered [...] Maintenance, 199:06:25 EDT, Route to Pharmacy Electronically, [id number], [id number] Start Date: 12/03/18 Status: Ordered ibuprofen 600 mg oral tablet 600 mg, 1, tablet, By Mouth, Every 6 hours, # 50 tablet, Refills 0, Tot. Refills 0, Maintenance, 01/18/19 6:54:06 EST, Route to Pharmacy Electronically, [id number], [facility] #[id number] Start Date: 01/18/19 Status: Ordered oxyCODONE 5 [...] 11/11/18 14:30:48 EDT, Route to Pharmacy Electronically, [id number], [facility]/pharmacy #1130 Tablet Start Date: 11/11/18 Status: [...] of delivery(Confirmed) 2014 Active Nephrolithiasis(Confirmed) Active Uses Kenyan as primary spok en language(Confirmed) Active H/O Renal lithiasis(Confirmed) 12/18/11 Active Social History Social History Type Response Smoking Status Never smoker entered on: 01/02/14 Sex Female
--- OUTSIDE RECORDS SUMMARY | 2023-01-29 14:30 | XMS_ITS | Continuity of Care Document ---
Author Name Unknown Organization [facility] Address [address] [place] [address]- Care Team Providers Care Cotton Picking Machine Operator Name Role Phone Jya Aldridge Primary Care Physician [facility]counter [facility] Date(s): 10/14/19 - 11/13/[address] [address]- [facility] Allergies, Adverse Reactions, Alerts Substance Reaction Severity [...] 11/11/18 14:30:44 EDT, Route to Pharmacy Electronically, [id number], [facility]/pharmacy #1130 Start Date: 11/11/18 [...] Maintenance, :06:25 EDT, Route to Pharmacy Electronically, [id number], [facility] #[id number] Start Date: 12/03/18 Status: Ordered ibuprofen 600 mg oral tablet 600 mg, 1, tablet, By Mouth, Every 6 hours, # 50 tablet, Refills 0, Tot. Refills 0, Maintenance, 01/18/19 6:54:06 EST, Route to Pharmacy Electronically, [id number], [facility] #[id number] Start Date: 01/18/19 Status: Ordered oxyCODONE 5 [...] 11/11/18 14:30:48 EDT, Route to Pharmacy Electronically, [id number], [facility]/pharmacy #1130 Tablet Start Date: [...] of delivery(Confirmed) 2014 Active Nephrolithiasis(Confirmed) Active Uses Comoran as primary spok en language(Confirmed) Active H/O Renal lithiasis(Confirmed) 12/18/11 Active Social History Social History Type Response Smoking Status Never smoker entered on: 01/02/14 Sex Female
--- OUTSIDE RECORDS SUMMARY | 2023-01-29 14:30 | XMS_ITS | Continuity of Care Document ---
Author Name Unknown Organization [facility] Address [address] [place] [id number] Care Team Providers Care Perioperative Nurse Name Role Phone Jay Aldridge Primary Care Physician Encounter [facility] Date(s): 09/07/19 - 10/07/19 [facility] [address] [id number]- [facility] Allergies, Adverse Reactions, Alerts Substance Reaction Severity [...] 11/11/18 14:30:44 EDT, Route to Pharmacy Electronically, [id number], [facility]/pharmacy #[id number] Start Date: 11/11/18 Status: Ordered Dilaudid 2 [...] Maintenance, 199:06:25 EDT, Route to Pharmacy Electronically, [id number], [id number] Start Date: 12/03/18 Status: Ordered ibuprofen 600 mg oral tablet 600 mg, 1, tablet, By Mouth, Every 6 hours, # 50 tablet, Refills 0, Tot. Refills 0, Maintenance, 01/18/19 6:54:06 EST, Route to Pharmacy Electronically, [id number], [facility] #[id number] Start Date: 01/18/19 Status: Ordered oxyCODONE 5 [...] 11/11/18 14:30:48 EDT, Route to Pharmacy Electronically, [id number], [facility]/pharmacy #[id number] Tablet Start Date: 11/11/18 [...] of delivery(Confirmed) 2014 Active Nephrolithiasis(Confirmed) Active Uses Icelandic as primary spok en language(Confirmed) Active H/O Renal lithiasis(Confirmed) 12/18/11 Active Social History Social History Type Response Smoking Status Never smoker entered on: 01/02/14 Sex Female
--- OUTSIDE RECORDS SUMMARY | 2023-01-29 14:30 | XMS_ITS | Continuity of Care Document ---
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 [place] 12/26/22 - 12/27/[address] [address] Discharge Disposition: A-D/C Home Attending Physician: Tonny Christianson MD Admitting Physician: Tonny Christianson MD Referring Physician: Tonny Christianson MD Allergies, Adverse Reactions, Alerts Substance Reaction Severity Status Macrobid Active Immunizations Given and Recorded Vaccine Date Status Refusal Reason tetanus/diphtheria/pertussis, acel(Tdap) 11/19/18 Given tetanus/diphtheria/pertussis, acel(Tdap) 03/29/14 Given influenza virus vaccine, inactivated 11/19/18 Give n influenza virus vaccine, inactivated 12/06/13 Give n influenza virus vaccine, inactivated 12/17/11 Give n Medications ibuprofen 600 mg oral tablet 600 mg, 1, tablet, By Mouth, 4 times a day, # 40 tablet, Refills 0, Tot. Refills 0, Maintenance, 12/27/22 5:32:00 EDT, Route to Pharmacy Electronically, [facility][id number], Partial fill uponpatient request if the prescription is for a schedu... Start Date: 12/27/22 Status: Ordered oxyCODONE 5 mg oral tablet 5 mg, 1, tablet, By Mouth, Every 6 hours, PRN, # 5 tablet, Refills 0, Tot. Refills 0, Acute 01/03/23 5:33:00 EDT, as needed for pain, 12/27/22 5:32:00 EDT, Route to Pharmacy Electronically, [facility] #[id number], Partial fill upon patient reques... Start Date: 12/27/22 Stop Date: 01/03/23 Status: Ordered Tylenol 325 mg oral tablet 650 mg, 2, tablet, By Mouth, Every 4 hours, PRN, # 40 tablet, Refills 0, Tot. Refills 0, Maintenance, for pain, 12/27/22 5:32:00 EDT, Route to Pharmacy Electronically, [facility] #[id number], Partial fill upon patient request if the prescription... Start Date: 12/27/22 Status: Ordered Problem List Condition Confirmation Course Effective Dates Status H ealth Status Informant Anxiety Confirmed Active H/O Chronic pelvic pain in female Confirmed Active H/O GDM Confirmed 2014 Active History of delivery Confirmed 2014 Active Nephrolithiasis Confirmed Active Uses [place] Citizen as primary spoken language Confirmed Active Obese class I Confirmed Active H/O Renal lithiasis Confirmed 12/18/11 Active Vital Signs Most recent to oldest [Reference Range]: 1 2 3 Oxygen Saturation [94-100 %] 96 % (12/27/22 8:00 AM) 95 % (12/27/22 7:45 AM) 90 % *L* (12/27/22 7:30 AM) Pulse Rate [55-90 bpm] 69 bpm (12/27/22 2:54 AM) Blood Pressure [90-138/55-84 mm Hg] 131/85mm Hg (12/27/22 8:00 AM) 141/82mm Hg *H* (12/27/22 7:45 AM) 130/93mm Hg (12/27/22 7:30 AM) Respiratory Rate [16-30 br/min] 25 br/min (12/27/22 8:00 AM) 25 br/min (12/27/22 7:45 AM) 15 br/min *L* (12/27/22 7:30 AM) Temperature [96.8-100.4 DegF] 98.1 DegF (12/27/22 8:00 AM) 98.0 DegF (12/27/22 6:00 AM) 98.2 DegF (12/27/22 2:54 AM) Liters per Minute 2 L/min (12/27/22 8:00 AM) 2 L/min (12/27/22 7:45 AM) 6 L/min (12/27/22 6:00 AM) Mode of Delivery (Oxygen) Nasal cannula (12/27/22 8:00 AM) Nasal cannula (12/27/22 7:45 AM) Room air (12/27/22 7:30 AM) Blood pressure sites Arm, left (12/27/22 8:00 AM) Arm, left (12/27/22 2:54 AM) Arm, left (12/26/22 7:55 PM) Temperature Route Temporal (12/27/22 8:00 AM) Temporal (12/27/22 6:00 AM) Temporal (12/27/22 2:54 AM) Social History Social History Type Response Smoking Status Never smoker entered on: 01/02/14 Sex History and physical note * Lizy Montgomery MD: PERFORM Event Display: History and Physical Hospital Authored Date: [id number] Patient: ??DORI CASILLAS ? Age:??27 Years?Sex:??Female?:??1995?? History of Present Illness Dori is a 27 yo who presents as a transfer from [place] as a rule out ovarian torsion. She reports that she woke up at 0200am with severe left flank to groin pain, nausea and vomiting. She has a history of kidney nephrolithiasis with her last episode 6 months ago and was concerned that she was having another one. At the moment, the pain is more concentrated to her LLQ and is a 7/10, 5/10 after analgesia. Denies any fever, chills, chest pain or shortness of breath. Denies any urinary or GI symptoms. ?? -Denies any history of STIs -No significant medical conditions or medications -Past surgical hx significant for appendectomy, cholecystectomy, sections x 2, bilateral salpingectomy, exploratory laparatomy -Allergic to Macrobid, hives Review of Systems ROS is negative except for what is noted or specified in the HPI.?? Physical Exam Vitals & Measurements T:??98.4?F?? HR:??74??(Monitored)?? RR:??20?? BP:??114/63?? SpO2:??96%?? General: Pleasant, alert, cooperative, NAD HEENT: Normocephalic/atraumatic Cardio-respiratory: Unlabored breathing. Lungs clear to auscultation with no added sounds. RRR. Abdominal: Soft, non-distended. No guarding or rebound. Exquisitely tender in the LLQ. Director Of Professional Services: Deferred. Neurologic: No focal neurological deficits.??Moves all extremities spontaneously. Extremities: Symmetrical muscle bulk, no visible erythema or edema Psych: Mood and affect stable, appearance appropriate, good eye contact, talkative Assessment/Plan Assessment:??Dori is a 27 yo who presents as a transfer from [place] as a rule out ovarian torsion.Vitals wnl while in [facility]. Pelvic ultrasound findings at [facility] revealed a 4.7 cm left ovarian hemorrhagic cyst. Physical exam is concerning for ovarian torsion given exquisite tenderness in the LLQ in the setting of a hemorrhagic cyst and an unremarkable UA with no evidence of ureteric calculi. Patient is NPO at this time with IV access, s/p Dilaudid 1mg IV x 2, Toradol 30mg IV, Zofran 4mg IV with minimal relief. Given that our clinical suspicion is high based upon her presentation and imaging findings, we recommend surgical intervention. ?? We discussed our recommendation at this time would be for surgery to untwist the ovary and to remove the cyst to return normal flow to the ovary and decrease likelihood of ovary torsing in the future. Patient agrees and would like to proceed with surgery at this time. The risks and benefits of the recommended intervention were discussed with the patient. ?? We discussed the risks of surgery including but not limited to: bleeding, infection, injury to surrounding organs (bowel, bladder,ureter), nerve injury, need for additional procedures, or anesthesia complications. Patient willing to accept blood transfusion if necessary. Case added on as urgent case and patient consented for: exploratory laparoscopy, ovarian detorsion, possible cystectomy, possible oophorectomy and all indicated procedures. ?? Ovarian torsion (N83.519):? NPO, IV access Consented for: exploratory laparoscopy, ovarian detorsion, possible cystectomy, possible oophorectomy and all indicated procedures Surgical case added on as urgent Daystay surgery ?? Seen and discussed with Dr. Garaz, attending. OB History History?(2,0,1,2)? # 1 ?Baby 1 ?Outcome Date:??2010 ?Outcome or Result:??Spontaneous ?Gest Age:??-- ? Outcome:? Sex:??-- ?? # 2 ?Baby 1 ?Outcome Date:??06/03/2014?Outcome or Result:?Gest Age:??38 weeks ? Outcome:??Live ? Sex:??Female?Wt:?3487 g ?Child's Name:??Rebekah ?Hospital:??[facility] ?? # 3 ?Baby 1 ?Outcome Date:??01/14/2019?Outcome or Result:??, low transverse ?Gest Age:??37 weeks 3 days ? Outcome:??Live ? Sex:??Male?Wt:?3627 g ? Complications:??None Active Problem List Active Problem List Anxiety: (Medical) H/O Chronic pelvic pain in female: (Medical) H/O GDM: (Medical) (06/22/14) H/O Renal lithiasis: (Medical) (12/18/11) History of delivery: (Medical) (06/22/14) Nephrolithiasis: (Medical) Obese class I: (Medical) Uses [place] Citizen as primary spoken language: (Medical) Procedure/Surgical History delivery only;: 01/14/19 Abdominal Hernia Surgery: 2014 section: 06/03/14 Laparoscopic cholecystectomy: 01/05/14 Laparoscopic appendectomy: 2012 [place] Teeth Extraction: 2009 Home Medications No qualifying data available. Allergies Macrobid Social History Alcohol Use: Never. Employment/School Status: Unemployed. Exercise Self assessment: Poor condition. Home/Environment Living situation: Home/Independent. Lives with: Children, Significant other. Nutrition/Health Diet: Regular. Sexual Sexually involved in last 6 months: Yes. Gender identity: Female. Substance Abuse Use: Never. Tobacco Never smoker Family History Father: Heart disease Mother: Migraine Pat. Grandmother: Asthma Pat. Grandfather: Asthma; CAD - Coronary artery disease; Diabetes mellitus type II Mat. Grandfather: CAD - Coronary artery disease; Diabetes mellitus type II * Greg PACHECO, Jenna Mario: PERFORM Event Display: History and Physical Hospital Authored Date: ?Attending Attestation:??I have seen and evaluated this patient. ??I have discussed the caseand its management with Fredis Eubanks and Yenny??and agree with the findings and plan as documented in the note below. History, exam and US findings suspicious for torsion, despite 'normal' flow. Possibly intermittent torsion Nausea on and off. Plan for laparoscopy overnight. Hospital Progress note * Marcy Toro RN: PERFORM, SIGN, VERIFY Event Display: Progress Note Hospital Authored Date: Patient: DORI CASILLAS Age: 27 years Sex: Female : 1995 Associated Diagnoses: None Author: Marcy Toro RN Pt arrived to unit via stretcher on 2L NC. Drowsy but easily arousable. Walked to bed with assist of one. Four lap sites to abdomen, CDI closed with surgical glue. Weaned off 02 stating high 90's on room air. DC order placed upon arrival to unit. Pt voiding wnl, tolerating PO, and pain in controlled. Pt asked me to call her mother, Linda, who will pick her up this morning. DC instruction gone over, understood and signed. Note * Marcy Toro RN: PERFORM Event Display: Discharge/Transfer Note Hospital Authored Date: [id number] Nursing Discharge Note Entered On: 12/27/2022 10:08 EDT Performed On: 12/27/2022 10:07 EDT by Marcy Toro RN Nursing Discharge Note 2 Discharge Time : 12/27/2022 10:05 EDT Discharge Level of Care at Discharge : Home/Long Term/Foster Care Patient Left Unit Via : Wheelchair Patient Accompanied Off Unit with : Responsible adult DC Instructions Provided & Signed by Pt : Yes Patient Understands D/C Instructions : Yes Patient Instructions Discharge Signed : Yes Did Pt have Specialty Bed or Wound Vac : No Marcy Toro RN - 12/27/2022 10:07 EDT * Monica Ramon DO: PERFORM Event Display: Discharge/Transfer Note Hospital Authored Date: [id number] Patient: ??DORI CASILLAS ? Age:??27 Years?Sex:??Female?:??1995?? Admit Date Admission Date: 12/26/2022 Discharge Date 12/27/2022 Discharge Diagnoses Ovarian torsion, 12/26/2022 [facility] Course Dori is a 27 yo who presented as a transfer from [place] as a rule out ovarian torsion in the setting of pelvic ultrasound findings at [facility] revealing a 4.7 cm left ovarian hemorrhagic cyst. Physical exam is concerning for ovarian torsion given exquisite tenderness in the LLQ. Given that clinical suspicion was high for torsion, she was taken to the OR for diagnostic laparoscopy. Procedure was uncomplicated, no torsion noted, left ovary cystectomy performed. She was discharged home from PACU in stable condition. Objective/Physical Exam on Day of Discharge Vitals & Measurements T:??98.2?F?? HR:??69??(Peripheral)?? RR:??10?? BP:??147/87?? SpO2:??97%?? Constitutional:??Normal affect, no acute distress, well-developed. Abdomen/GI:??Appropriately tender, laparoscopic port sites with skin glue in place. Extremities:??No clubbing, cyanosis or edema present.?? Skin:??No rash or jaundice. Normal for ethnicity. Neurological/Psychiatric:??Appearance appropriate, mood and affect stable. Assessment/Plan Assessment:??Dori is a 27 yo who is POD0 from a left ovarian??cystectomy. Procedure uncomplicated.??She was discharged home??in stable condition with outpatient follow up. ? Ovarian torsion (N83.209):?s/p exploratory laparoscopy ??scripts sent to pharmacy ??follow up in [facility] in 2 weeks for postop visit? Seen and discussed with Dr. Paulino, attending. ?? Procedures Performed This Visit Laparoscopy Diagnostic Cystectomy Ovarian Laparoscopic, w/possible Discharge Medications ???Acetaminophen (Tylenol 325 mg oral tablet)???Ibuprofen (ibuprofen 600 mg oral tablet)???Oxycodone (oxyCODONE 5 mg oral tablet) Immunizations during Hospitalization Vaccine Date Status tetanus/diphtheria/pertussis, acel(Tdap) 11/19/2018 Given influenza virus vaccine, inactivated 11/19/2018 Given tetanus/diphtheria/pertussis, acel(Tdap) 03/29/2014 Given influenza virus vaccine, inactivated 12/06/2013 Given influenza virus vaccine, inactivated 12/17/2011 Given Patient Education Titles Understanding Ovarian Cystectomy?? Follow-Up Appointments Added Follow Up ?Time Frame ?Comments Kenisha Paulino?1-2 day: call to discuss follow up visit?call the office to schedule a follow up visit in 1-2 weeks Jay Rojas Patient Instructions Call your doctor if: you note fever of 100.4 or greater, difficulty or burning with urination, nausea and vomiting with inability to tolerate food, pain not controlled by your prescribed medications,redness/swelling/drainage at incision(s), shortness of breath or chest pain. ??- Do not drive while taking narcotics. Do not drive until cleared by your doctor. ??- Avoid lifting for 2 weeks ??- Stairs are OK but avoid multiple trips and go slowly. ??- Walk as often as you are able. ??- Shower as usual. Do not scrub the incisions. Pat the skin dry. * Kenisha Paulino DO: PERFORM Event Display: Discharge/Transfer Note Hospital Authored Date: [id number] Agree with resident documentation.?? Uncomplicated left ovarian cystectomy.?? Ovarian torsion was not identified.?? Significant adhesive disease between the uterus and the anterior wall. ?? Kenisha Paulino DO 12/27/2022 07:16:18 * Muna CHAPPELL, Marcy: YOAN Ramírez RN, Michela: PERFORM Event Display: Patient Education/Instruction Authored Date: [id number] Inpatient Adult Discharge Instructions [address] [address] Name: DORI CASILLAS : 1995 Visit: 12/26/2022 22:51:00 Current Date: 12/27/2022 07:21 Account: [id number] Inpatient Adult Discharge Instructions We would like to thank you for allowing us to assist you with your healthcare needs. The following includes patient education materials and information regarding your injury/illness. Our entire staffstrives to provide an excellent experience for our patients and their families. PLEASE ENSURE YOU FOLLOW-UP PER THE INSTRUCTIONS BELOW! ?? YOUR OPINION IS IMPORTANT TO US! Please complete the survey you may receive by mail or email. Your feedback will be used to make improvements to the healthcare experiences of our patients and their families. Surveys are administered by [employer] ?? If further treatment with your primary care physician or another doctor is recommended, it is important for you to keep the appointment. Call your primary care physician or return to the Emergency Department immediately if your condition worsens, fails to improve, or new symptoms develop. If you need to find a doctor, you can call [facility] Link for a referral at [phone] or toll free at [phone] ([phone]) or log in to [email or web address].. ?? [facility], in keeping with [facility] guidance, no longer requires face masks for staff, patientsor visitors in most situations. Similiar to time spent indoors at other locations, there is the chance that you were exposed to repiratory viruses during your time with us (such as flu or COVID-19). If you develop symptoms concerning for a viral respiratory infection, please seek testing (and treatment if indicated) from your medical provider or home test kit. ?? You can view and manage your care through the patient portal or by using a health care mack of your choosing. [employer] is a website that allows you to securely view your medical information including your hospital discharge summary, office visit summaries, medications and follow-up visits. You can also request appointments, renew medications, and request access to your medical information using a health care mack of your choosing, or just ask a question. You can enroll at [email or web address] or register during your next office visit. You have been discharged from [facility], Patient Care Unit: PAN[facility]. If you have any questions regarding these instructions after you leave, please call us and we will be happy to assist you. 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 You may have had other tests and procedures not included in this list. Please discuss all test results with your provider. CBC Comprehensive Metabolic Panel Primary Care Provider Jay Aldridge Advance Directive Health Care Proxy on File No Discharge Vitals Temperature: 98 DegF Pulse Rate: 69 bpm Respiratory Rate:??12 br/min??Low Systolic Blood Pressure: 138 mm Hg Diastolic Blood Pressure:??102 mm Hg??High Oxygen Saturation: 100 % Studies Pending All tests and labs ordered during this hospital stay have been completed unless listed below. Please discuss all pending results with your provider listed above in these instructions. ?? Type and Screen What to do next Instructions From Your Doctor Discharge Orders You Need to Schedule the Following Appointments Follow Up with??Kenisha Paulino When:??Within 1-2 day: call to discuss follow up visit Why: call the office to schedule a follow up visit in 1-2 weeks Where: [address] [place] [address]- Business (1) Follow Up with??Jay Rojas When:??In 0 days Where: [address] [place] [address]- [facility] (1) Discharge Medications DORI CASILLAS :1995 Visit Date:12/26/2022 Medications: Please continue your medications until treatment is completed or stopped by your provider. Medications not listed below should be discontinued. Discuss any questions related to medications with your provider. What How Much When Instructions Next Dose New Acetaminophen (Tylenol 325 mg oral tablet) 2 tab(s) Oral Every 4 hours as needed for for pain [id number] Today at 11 am New Ibuprofen (ibuprofen 600 mg oral tablet) 1 tab(s) Oral 4 times a day [id number] needed New Oxycodone (oxyCODONE 5 mg oral tablet) 1 tab(s) Oral Every 6 hours as needed for as needed for pain [id number] Today at 1 pm Pharmacy Information [facility] #[id number]: [address], [place] [id number] [phone] Test Results Below is a partial list of the most recent Laboratory test results done prior to this discharge. You may have had other tests and procedures not included in this list. Please discuss all test resultswith your provider. Antibody Screen - Negative (12/26/2022) Blood Type - O Positive (12/26/2022) CBC (12/26/2022) ???WBC - 7.5 k/mm3???RBC - 4.32 m/mm3???Hgb - 12.7 Gm/dL???Hct - 37.6 %???MCV - 87.0 femtoliters???MCH - 29.4 pg???MCHC - 33.8 g/dL???Platelet Count - 275 k/mm3???RDW-SD - 40.5 femtoliters???MPV - 9.4 femtoliters???Nucleated RBC (Automated) - 0.0 #/100 WBC'S???Abs. NRBC - 0.0 k/mm3 Comprehensive Metabolic Panel (12/26/2022) ???Sodium - 139 mmol/L???Potassium - 3.8 mmol/L???Chloride - 103 mmol/L???Bicarbonate Level - 25 mmol/L???Anion Gap - 11???Glucose Level - 94 mg/dL???BUN - 7 mg/dL???Creatinine-Blood - 0.8 mg/dL???Estimated GFR Creatinine - 111 ML/MIN/1.73 M2???Calcium - 9.3 mg/dL???Protein, Total - 6.2 Gm/dL???Albu min - 4.2 Gm/dL???AG Ratio - 2.1???Alkaline Phosphatase - 136 units/L???AST (SGOT) - 115 units/L???ALT (SGPT) - 66 units/L???Bilirubin, Total - 0.6 mg/dL Allergies (NKA means No Known Allergies) Macrobid Problems Active Problems??(8) Anxiety?? H/O Chronic pelvic pain in female?? H/O GDM?? H/O Renal lithiasis?? History of delivery?? Nephrolithiasis?? Obese class I?? Uses [place] Citizen as primary spoken language?? Education Materials Below is the list of Educational Leaflet Providered with your Discharge Instructions. Surgery Medical Daystay Surgical Overnight Discharge Instructions?? Surgery Voiding Instructions?? Understanding Ovarian Cystectomy?? Valuables and Belongings I fully understand and agree that [facility] accepts no responsibility for all my personal property including clothing, toilet articles, radios, jewelry, dentures, hearing aids, rings, money, or any other property that is in my possession or is brought to me after admission. I understand certain valuables may be placed in a hospital safe for a short period of time. I understand that the hospital is not liable for loss or damage due to accident, fire, or other natural occurrence while said property is in the safe. I accept full responsibility for any personal property that I keep with me, and will not hold the hospital responsible in case of loss or disappearance. I acknowledge that i have been encouraged to send valuables and belongings home. ? Other Discharge Information ? Pulmonary Rehab Status?? Pulmonary Rehab Discharge Status?? Respiratory Rate:??12 br/min??Low ? Common Emergency Awareness Tips IS IT A STROKE? Act FAST and Check for these signs: FACE Does the face look uneven? ARM Does one arm drift down? SPEECH Does their speech sound strange? TIME Call at any sign of stroke ?? Heart Attack Signs Chest discomfort: Most heart attacks involve discomfort in the center of the chest and lasts more than a few minutes, or goes away and comes back. It can feel like uncomfortable pressure, squeezing, fullness or pain. Discomfort in upper body: Symptoms can include pain or discomfort in one or both arms, back, neck, jaw or stomach. Shortness of breath: With or without discomfort. Other signs: Breaking out in a cold sweat, nausea, or lightheaded. Remember, MINUTES DO MATTER. If you experience any of these heart attack warning signs, call to get immediate medical attention! ?? Smoking can increase your chances of developing chronic health problems and can cause harmful effects to other family members in your house. If you smoke, you are strongly encouraged to quit. Please call [facility] [employer] Link at [phone] or [phone] ([phone]) or log in to [email or web address] for referrals to smoking cessation programs. ?? 486 Suicide & Crisis Lifeline is available 22/09 if you or someone you know needs to find a reason to keep living. By calling 462 you'll be connected to a skilled, trained counselor at a crisis center in your area. INPATIENT DISCHARGE INSTRUCTIONS SIGNATURE PAGE DORI CASILLAS Location:[facility] Registration Date and Time:12/26/2022 22:51 EDT Primary Care Physician: Jay Aldridge, Attending Physician: Tonny Christianson MD, I DORI CASILLAS, have received the above patient education materials/instructions and have verbalized understanding. If ambulance or transport services are being used I further acknowledge being given a choice of service. ?? If you need to contact me, please call me at this number: . Patient/Web Support Engineer Name: Patient/Web Support Engineer Signature: Relationship to Patient: Witness Name/Signature: Date: * Kush Vigil RN: PERFORM, SIGN, VERIFY Event Display: Patient Education Handout Authored Date: [id number] * Kush Vigil RN: PERFORM Event Display: Patient Education Leaflets Authored Date: [id number] Surgery Medical Daystay Surgical Overnight Discharge Instructions ?? 295 Medical Daystay/Surgical Overnight Discharge Instructions ? Since your coordination and judgment may be altered by medication and/or anesthesia, a responsible adult must drive you home from the hospital. ? If you have received medication for pain or sedation while under our care, you should not drive, operate machinery, drink alcohol, or sign any legal documents for 24 hours.?? You should have someone with you at home tonight. ? Remain at home the day of discharge.?? You may be up and about unless otherwise instructed by your physician. ? You may resume your daily prescription medication schedule.?? Any depressant medication should be avoided for 24 hours unless otherwise instructed by your surgeon or anesthesiologist. ? Call your physician for a follow-up appointment.? If you experience unusual or severe pain not relied by your pain medication, excessive bleedingor drainage, persistent nausea and vomiting, excessive swelling or redness, foul odor from incisionsite or fever over 100.6F, you need to call your physician. ? A follow-up phone call by a nurse will be made the day after your procedure.?? If you have stayed with us over night, you will not be receiving a follow-up phone call. ? Nausea and vomiting are a common side effect of prescription pain medication.?? We recommend that pills are not taken on an empty stomach.?? While taking any prescription pain medication you should not drive or drink alcohol. ? * Kush Vigil RN: PERFORM Event Display: Patient Education Leaflets Authored Date: [id number] Surgery Voiding Instructions ?? 305 Home Voiding Instructions ?? You should pass urine 6-8 hours after you are discharged from the [facility]. The amount should be about one cup of urine with each voiding. Be aware that you should feel like you are emptying your bladder completely. If you are passing very small amounts of urine frequently it could be over-flow and you may not be emptying your bladder. Things to try to encourage urination: Drink warm coffee or tea ??? unless your physician told you not to. Blow bubble through your straw into a small glass of water. Trickle lukewarm water onto your private area. Walk around as much as able. Let the faucet run slowly. Put your hand in warm water. Try to relax. If you have any concerns about urination, in the above time frame after your discharge, you should call your Doctor. ? * Musa CHAPPELL, Kush: PERFORM Event Display: Patient Education Leaflets Authored Date: [id number] Understanding Ovarian Cystectomy ?? [id number] ??Qu?? es meek quistectom??a ov??attila? Entendemos que el g??una es un espectro. Es probable que usemos t??rminos diferenciados en funci??n del g??una para hablar sobre anatom??a y riesgos de la yovanny. Use esta informaci??n de la forma que mejor se adecue a usted y al proveedor cuando conversen sobre pineda atenci??n m??dica. Meek quistectom??a ov??attila es un tipo de cirug??a. En robert se extraen quistes de los ovarios. Un quiste es un saco lleno de l??quido. Usted tiene dos ovarios, devan a cada lado del ??tero. Son los que producen ??vulos. Tambi??n producen la hormona estr??caesar. ??How to say it [id number] ?Por qu?? se hace meek quistectom??a ov??attila? Leona procedimiento se realiza para quitar un quiste de un ovario. Generalmente, se hace si el quiste es georgette o doloroso. Tambi??n se hace si el proveedor de atenci??n m??dica malick que puede ser c??ncer. Muchas mujeres tienen quistes en los ovarios. Por lo general, son benignos. Rand pueden ser cancerosos. ?C??mo se hace meek quistectom??a ov??attila? Leona procedimiento suele realizarse en un hospital. Usted donald vez tenga que pasar algunos d??as en el hospital despu??s de que le quiten el quiste. Ramila el procedimiento: ??? Le feroz un medicamentopara que se duerma. Usted no sentir?? nada de dolor. ??? El cirujano hace un natalie (incisi??n) en el abdomen para llegar a los ??rganos reproductores. En leona procedimiento tambi??n se puede usar un tubo estrecho con meek c??jerson en el extremo (laparoscopio). La c??jerson le permite al cirujano isabell elquiste y sirve de gu??a para la cirug??a. ??? El profesional sujeta el ovario con meek pinza para mantenerlo inm??ann. ??? Hace un natalie en el ovario con cuidado para descubrir el quiste. ??? Es posible que se vac??e el quiste. Luego se lo extrae del ovario. ??? Puede que se env??e el quiste a un laboratorio para realizar an??lisis y detectar enfermedades augustina, por ejemplo, c??ncer. ??? El cirujano detiene cualquier sangrado que pueda producirse en el ovario. Luego, salazar el natalie o los kiser en el abdomen. ?? Riesgos de meek quistectom??a ov??attila ??? Sangrado ??? Da??o a un ovario o trompa ??? Infecci??n ??? Lesi??n en la vejiga ??? Lesi??n en los intestinos ?? Last Reviewed Date: 2021 ?? 5631-2845 [employer]. All rights reserved. This information is not intended as a substitute for professional medical care. Always follow your healthcare professional's instructions. ?? Patient Care team information Care Team Personnel Name: Jay Aldridge Position: [facility] Outreach Member Role: PCP Address: Address: [address] [place] [address]- Name: Jay Gotti Position: [facility] Outreach Member Role: [employer] Consult[employer] Physician Address: Address: [address] [place] [address], [address] [address]- Name: Juliet Schumacher RN Position: S RN Member Role: Primary Care Nurse Name: Cynthia Narayanan RN Position: S RN Member Role: Primary Care Nurse Name: Johana Maciel RN Position: [facility] OB RN Member Role: OB RN Care Team Related Persons Name: RONI CASILLAS Address: [id number] Address: home [address] [place] [address] [place] Name: ELISSA CASILLAS Address: home [address] [place] [address] Name: GEORGIANA SPANN Address: home [address] [place] [id number] Name: STEVE CALLES Address: [address] [place] [address] Name: LINDA CALLES Address: home [address] [place] [address] Name: LINDA CALLES Address: home [address] [facility] [address] [place] [id number]
--- OUTSIDE RECORDS SUMMARY | 2023-01-29 14:30 | XMS_ITS | Continuity of Care Document ---
Author Name Unknown Organization [facility] ter Address [address] [place] [id number] Care Team Providers Care Entry Level Assistant Manager Name Role Phone Jay Aldridge Primary Care Physician Encounter [facility] [place], [place] Date(s): 01/12/22 - 01/14/[address] [id number] Discharge Disposition: A-D/C Home Attending Physician: Gage Richards MD Admitting Physician: Janet Brewster MD Referring Physician: Not on Staff, Referring MD Allergies, Adverse Reactions, Alerts Substance Reaction Severity Status Macrobid Active Immunizations Given and Recorded Vaccine Date Status Refusal Reason tetanus/diphtheria/pertussis, acel(Tdap) 11/19/18 Given tetanus/diphtheria/pertussis, acel(Tdap) 03/29/14 Given influenza virus vaccine, inactivated 11/19/18 Give n influenza virus vaccine, inactivated 12/06/13 Give n influenza virus vaccine, inactivated 12/17/11 Give n Medications acetaminophen 325 mg oral tablet 975 mg, 3, tablet, By Mouth, 3 times a day, for 7 days, # 63 tablet, Refills 0, Tot. Refills 0, Acute 01/21/22 9:58:00 EST, 01/14/22 9:58:00 EST, Route to Pharmacy Electronically, [facility], Partial fill upon patient request if the pres... Start Date: 01/14/22 Stop Date: 01/21/22 Status: Ordered duloxetine 60 mg oral enteric coated capsule TAKE 1 CAPSULE BY MOUTH EVERY DAY Start Date: 01/12/22 Status: Ordered ibuprofen 400 mg oral tablet 400 mg, 1, tablet, By Mouth, Every 4 hours, PRN, # 20 tablet, Refills 0, Tot. Refills 0, Acute 01/21/22 10:00:00 EST, for pain, 01/14/22 9:58:00 EST, Route to Pharmacy Electronically, [facility], Partial fill upon patient request if the... Start Date: 01/14/22 Stop Date: 01/21/22 Status: Ordered morphine 15 mg oral tablet, immediate release 1 tablet = 15 mg, By Mouth, Every 6 hours, PRN Pain , Severe, # 12 tablet, 0 Refills, Acute 01/21/22 9:57:00 EST, 01/14/22 9:56:00 EST, Tablet, [facility], Partial fill upon patient request if the prescription is for a schedule II opioid... Start Date: 01/14/22 Stop Date: 01/21/22 Status: Ordered MorPHINE Immediate Release Tablet 15 mg, Tablet, By Mouth, Every 6 hours, PRN for Pain , Severe, Routine, 01/13/22 20:27:00 EST Start Date: 01/13/22 Stop Date: 01/14/22 Status: Discontinued ondansetron 4 mg oral tablet, disintegrating 1 tablet = 4 mg, By Mouth, Every 8 hours, PRN as needed for nausea/vomiting, # 9 tablet, 0 Refills,Acute 01/21/22 9:59:00 EST, 01/14/22 9:59:00 EST, DIS Tablet, [facility], Partial fill upon patient request if the prescription is for a... Start Date: 01/14/22 Stop Date: 01/21/22 Status: Ordered traZODone 50 mg oral tablet TAKE 1 TABLET BY MOUTH EVERY NIGHT AT BEDTIME Start Date: 01/12/22 Status: Ordered Problem List Condition Confirmation Course Effective Dates Status H ealth Status Informant Anxiety Confirmed Active H/O Chronic pelvic pain in female Confirmed Active H/O GDM Confirmed 2014 Active History of delivery Confirmed 2014 Active Nephrolithiasis Confirmed Active Uses Kosovan as primary spoken language Confirmed Active Obese class I Confirmed Active H/O Renal lithiasis Confirmed 12/18/11 Active Results Radiology Reports * Exam Date Time Procedure Performing Provider Status 01/12/22 7:[address] Abdomen and Pelvi s W/O Contrast Cynthia Sales; Vinod (Verified) Notes: (CT Abdomen and Pelvis W/O Contrast) Reason For Exam: Pain RESULT: CT Abdomen and Pelvis W/O Contrast CT Abdomen and Pelvis W/O Contrast Reason: Right-sided flank pain. History of kidney stones. TECHNIQUE: Spiral CT through the abdomen and pelvis without IV contrast formatted in 3 planes. Thisstudy was performed without oral contrast. Weight- based protocol using automatic tube modulation was used to optimize exposure parameters. CTDIvol Body: 5.90 mGy, DLP Body: 286 mGy*cm. COMPARISON: 12/22/2018 FINDINGS: Slp View Findings, Lines and Tubes: None. Visualized Chest: Lung bases are clear. No pleural effusion. Diaphragm: Normal. Liver: Visualized portion is unremarkable. Gallbladder: Absent consistent with prior cholecystectomy. Bile ducts: No biliary ductal dilation. Spleen: Normal. Pancreas: Normal. Adrenal glands: Normal. Kidneys and ureters: No hydronephrosis. Multiple punctate nonobstructive calculi noted in both kidneys, measuring 1 to 3 mm in size. No evidence of ureteric calculi. Bladder: Under distended and grossly unremarkable. No evidence of intraluminal calculi. Reproductive organs: Uterus is grossly unremarkable. There is a 2.8 cm dominant follicle in the right ovary. Stomach, small bowel, and large bowel: Stomach is moderately distended with food debris and grosslyunremarkable. No small bowel obstruction. [id number] fecal retention seen throughout the colon. No inflammatory changes in the bowel. Appendix: Surgical clips noted at the base of the cecum, suggestive of prior appendectomy. Peritoneum and retroperitoneum: No ascites or pneumoperitoneum. No omental or mesenteric lesions. Lymph nodes: No enlarged lymph nodes. Blood vessels: Normal. No aneurysm. Abdominal and pelvic wall: Unremarkable. Bones: No acute abnormality. IMPRESSION: Bilateral nonobstructive nephrolithiasis. The overall stone burden has decreased as compared to theprior CT from 2019. No hydronephrosis or ureterolithiasis. No CT evidence of acute intra-abdominal or pelvic abnormality. WSN: [id number] Ordering Physician: Aden Sierra Dictated By: Lenora Hinds MD Dictated Date/Time: 01/12/22 8:04 pm Reviewed By: Lenora Hinds MD Signed By: Lenora Hinds MD Signed Date/Time: 01/12/22 8:04 pm Transcribed By: GIA Transcribed Date/Time: 01/12/22 7:56 pm * Exam Date Time Procedure Performing Provider Status 01/12/22 6:00 PM US Retroperitoneum Comp Brandi Benoit; Auth (Verified) Notes: (US Retroperitoneum Comp) Reason For Exam: Flank pain;Other: RESULT: US Retroperitoneum Comp US Retroperitoneum Comp Reason: Other:; Flank pain; Clinical Question(s): Renal Obstruction; Order Comment: US Retroperitoneum Complete Prep COMPARISON: 06/20/2021 FINDINGS: Right kidney: 10.3 cm in length. No hydronephrosis. Normal parenchymal thickness and echotexture. 2tiny echogenic foci measuring approximately 2 mm each noted in the lower pole of the right kidney with color to ankle artifact but no definite shadowing on grayscale imaging, could possibly representnonobstructive calculi versus vascular calcifications. No suspicious mass. Left kidney: 9.4 cm in length. No hydronephrosis. Normal parenchymal thickness and echotexture. No stones. No suspicious mass. Urinary bladder: Normal morphology. No stone, mass, wall thickening or debris. Bilateral ureteral jets are identified on color Doppler imaging suggesting ureterovesicular junction patency. IMPRESSION: No hydronephrosis. 2 adjacent tiny nonshadowing bright reflectors in the lower pole of the right kidney (one of which was also seen on the prior study) may represent nonobstructive calculi versus vascular calcifications. Left kidney is unremarkable. WSN: [id number] Ordering Physician: Da Bergman Dictated By: Lenora Hinds MD Dictated Date/Time: 01/12/22 6:09 pm Reviewed By: Lenora Hinds MD Signed By: Lenora Hinds MD Signed Date/Time: 01/12/22 6:09 pm Transcribed By: GIA Transcribed Date/Time: 01/12/22 6:06 pm Vital Signs Most recent to oldest [Reference Range]: 1 2 3 Height 155 cm (01/14/22 7:36 AM) 155 cm (01/14/22 2:59 AM) 155 cm (01/13/22 11:25 PM) Weight 81.5 kg (01/12/22 9:00 PM) 76 kg (01/12/22 12:03 PM) 76 kg (01/12/22 10:32 AM) Oxygen Saturation [94-100 %] 98 % (01/14/22 7:36 AM) 96 % (01/14/22 2:59 AM) 96 % (01/13/22 11:25 PM) Pulse Rate [55-90 bpm] 83 bpm (01/14/22 7:36 AM) 95 bpm *H* (01/14/22 2:59 AM) 88 bpm (01/13/22 11:25 PM) Body Mass Index [18.5-24.99 kg/m2] 33.92 kg/m2 *>HHI* (01/12/22 9:00 PM) 31.63 kg/m2 *>HHI* (01/12/22 12:03 PM) 31.63 kg/m2 *>HHI* (01/12/22 10:03 AM) Blood Pressure [90-138/55-84 mm Hg] 127/71mm Hg (01/14/22 7:36 AM) 145/71mm Hg *H* (01/14/22 2:59 AM) 108/65mm Hg (01/13/22 11:25 PM) Respiratory Rate [16-30 br/min] 18 br/min (01/14/22 9:46 AM) 18 br/min (01/14/22 9:00 AM) 18 br/min (01/14/22 7:36 AM) Temperature [96.8-100.4 DegF] 97.8 DegF (01/14/22 7:36 AM) 97.9 DegF (01/14/22 2:59 AM) 98.5 DegF (01/13/22 11:25 PM) Liters per Minute 0 L/min (01/12/22 10:03 AM) Mode of Delivery (Oxygen) Room air (01/14/22 7:36 AM) Room air (01/14/22 2:59 AM) Room air (01/13/22 11:25 PM) Blood pressure sites Arm, right (01/14/22 7:36 AM) Arm, right (01/14/22 2:59 AM) Arm, right (01/13/22 11:25 PM) Temperature Route Oral (01/14/22 7:36 AM) Oral (01/14/22 2:59 AM) Oral (01/13/22 11:25 PM) Dry Weight 81.5 kg (01/12/22 9:00 PM) 76 kg (01/12/22 12:03 PM) 76 kg (01/12/22 10:32 AM) Weight Obtained Via Bed scale (01/12/22 9:00 PM) Patient/family stated (01/12/22 10:03 AM) Dry Weight Obtained Via Bed scale (01/12/22 9:00 PM) Patient/family stated (01/12/22 10:03 AM) Social History Social History Type Response Smoking Status Never smoker entered on: 01/02/14 Sex Female Admission evaluation note * James Gamez: PERFORM Event Display: Admission Note Authored Date: [id number] Patient: ??IGNACIA CASILLAS ? Age:??26 Years?Sex:??Female?:??1995?? Chief Complaint/Reason for Consultation Flank pain History of Present Illness Ms. Casillas is a 26-year-old female with a past medical history of nephrolithiasis, anxiety and depression who presents with right flank pain.?? Patient reports that yesterday she developed right-sided flank pain that she describes as intermittent with radiation to her right lower quadrant.?? She e ndorses several episodes of nonbloody, nonbilious emesis today with ongoing nausea.?? She denies any fevers, chills, or dysuria.?? She otherwise denies any dizziness, lightheadedness,??cough, shortness of breath, chest pain,??diarrhea, constipation,??lower extremity pain or swelling, rashes or other skin changes. ?? Of note, patient does have a history of recurrent nephrolithiasis, requiring left nephrostomy tube in 2019 for severe left intractable flank pain during .?? She has otherwise not required any intervention for kidney stones.?? It appears that patient has had some difficulty following up with urology as an outpatient.?? She states that she called to set up an appointment in May when she was diagnosed with a right UVJ stone in the emergency department, however, was unable to secure an appointment with urology until March 2022.?? She represented to the emergency department approximately 1 month ago with right-sided flank pain thought to be secondary to nephrolithiasis, she reports that she called the urology office approximately 2 weeks ago and was put on a cancellation list but has been unable to secure a sooner appointment thus far.? Upon arrival in the emergency department today, patient was afebrile, heart rate??76 bpm, respirations 20, blood pressure 136/89, satting 100% on room air oxygen.?? Laboratory work-up revealed no leukocytosis, no anemia, no electrolyte disturbances, BUN 10, creatinine 0.7, urinalysis relatively benign.?? ED provider was in contact with on-call urology with plan for pain control and likely discharge home if pain was well controlled.?? However, despite multiple doses of IV morphine, p.o. oxycodone, multiple doses of Zofran she continued to have uncontrolled right-sided flank pain and nausea and medical admission was requested for further evaluation and management.?? Urology was updated that she would be staying. Review of Systems Complete review of systems negative except as noted in HPI?? Objective Measurements?? Height: 155 cm (01/12/22) Weight: 76 kg (01/12/22) Dry Weight: 76 kg (01/12/22) Body Mass Index:??31.63 kg/m2??Critical (01/12/22) ? Vital Signs?? Temperature: 98.2 DegF (01/12/22 12:03:00) Temperature Route: Oral (01/12/22 12:03:00) Pulse Rate: 77 bpm (01/12/22 16:13:00) Respiratory Rate: 16 br/min (01/12/22 16:13:00) Systolic Blood Pressure: 135 mm Hg (01/12/22 16:13:00) Diastolic Blood Pressure: 80 mm Hg (01/12/22 16:13:00) Blood pressure sites: Arm, right (01/12/22 16:13:00) Mean Arterial Pressure: 85 mm Hg (01/12/22 12:03:00) Pulse Pressure: 55 mm Hg (01/12/22 16:13:00) Oxygen Saturation: 98 % (01/12/22 16:13:00) Liters per Minute: 0 L/min (01/12/22 10:03:00) Mode of Delivery (Oxygen): Room air (01/12/22 16:13:00) Early Warning Score: 0 (01/12/22 16:34:07) ? Physical Exam General Appearance: In no acute distress, appears uncomfortably with movement Head: Normocephalic and atraumatic Neck: Supple, trachea midline?? Eyes: Conjunctiva normal?? ENT: Mucus membranes moist?? Cardiac: RRR. No M/G/R Respiratory: CTA, no wheezes or rhonchi?? GI: Soft, nontender, nondistended, bowel sounds present, +right-sided CVA tenderness Neuro: Alert and oriented x3, moving all extremities with equal strength Extremities: No cyanosis, no edema?? Skin: Warm and dry?? Psych: Appropriate affect Assessment/Plan Diagnoses Anxiety and depression ??(F41.9) Renal colic ??(N23) ?? Assessment:??Ms. Casillas is a 26-year-old female with a past medical history of nephrolithiasis, anxiety and depression who presents with right flank pain. ?? Renal colic likely secondary to nephrolithiasis: Patient with history of recurrent nephrolithiasis presenting with 1-day history of right-sided flank pain consistent with prior episodes of nephrolithiasis ED bedside ultrasound with mild right sided hydronephrosis No systemic signs of infection and renal function at baseline No fevers, chills, dysuria, or UA evidence of infection Pain uncontrolled and medical admission requested Plan -Clear liquid diet for now, NPO after midnight as a precaution if any??procedure deemed necessary -Urology aware of patient -Renal ultrasound pending -Pain control with scheduled Tylenol, prn Toradol, prn oxycodone, and prn morphine if severe breakthrough pain or unable to tolerate PO -Zofran as needed for nausea/vomiting -Tamsulosin started -Strain all urine -Gentle IV fluids until tolerating a diet ?? Anxiety and depression (F41.9):??Continue home duloxetine ?? VTE Prophylaxis:??Low risk, patient ambulatory, pneumoboots while in bed ?? Code Status:??Full code Histories Allergies Allergies ?(Active and Proposed Allergies Only) Macrobid? (Severity: Unknown severity, Onset: Unknown) ?? Past Medical History/Problem List Active Problems??(8) Anxiety H/O Chronic pelvic pain in female H/O GDM H/O Renal lithiasis History of delivery Nephrolithiasis Obese class I Uses Kosovan as primary spoken language ?? Past Surgical History delivery only;: 01/14/19 Abdominal Hernia Surgery: 2014 section: 06/03/14 Laparoscopic cholecystectomy: 01/05/14 Laparoscopic appendectomy: 2012 [place] Teeth Extraction: 2009 ?? Social History Alcohol Details:??Use: Never. Employment/School Details:??Status: Unemployed. Exercise Details:??Self assessment: Poor condition. Home/Environment Details:??Living situation: Home/Independent. ??Lives with: Children, Significant other. Nutrition/Health Details:??Diet: Regular. Sexual Details:??Sexually involved in last 6 months: Yes. ??Gender identity: Female. Substance Abuse Details:??Use: Never. Tobacco Details:??Never smoker ?? Family History Father: Heart disease Mother: Migraine Pat. Grandmother: Asthma Pat. Grandfather: Asthma; CAD - Coronary artery disease; Diabetes mellitus type II Mat. Grandfather: CAD - Coronary artery disease; Diabetes mellitus type II Medications Home Medications Duloxetine (duloxetine 60 mg oral enteric coated capsule)?TAKE 1 CAPSULE BY MOUTH EVERY DAY Trazodone (traZODone 50 mg oral tablet)?TAKE 1 TABLET BY MOUTH EVERY NIGHT AT BEDTIME Results Recent Labs BLOOD COUNT & DIFF WBC 6.7 k/mm3 ()?? 01/12/2022 11:14 RBC 4.01 m/mm3 (Low)?? 01/12/2022 11:14 Hgb 11.8 Gm/dL ()?? 01/12/2022 11:14 Hct 36.4 % ()?? 01/12/2022 11:14 MCV 90.8 femtoliters ()?? 01/12/2022 11:14 MCH 29.4 pg ()?? 01/12/2022 11:14 MCHC 32.4 g/dL (Low)?? 01/12/2022 11:14 Platelet Count 234 k/mm3 ()?? 01/12/2022 11:14 RDW-SD 41.1 femtoliters ()?? 01/12/2022 11:14 MPV 9.4 femtoliters ()?? 01/12/2022 11:14 Nucleated RBC (Automated) 0.0 #/100 WBC'S ()?? 01/12/2022 11:14 Abs. NRBC 0.0 k/mm3 ()?? 01/12/2022 11:14 Abs. Neut 4.7 k/mm3 ()?? 01/12/2022 11:14 Abs. Lymph 1.5 k/mm3 ()?? 01/12/2022 11:14 Abs. [place] 0.4 k/mm3 ()?? 01/12/2022 11:14 Abs. Eo 0.1 k/mm3 ()?? 01/12/2022 11:14 Abs. Baso 0.0 k/mm3 ()?? 01/12/2022 11:14 Neut % 70.0 % ()?? 01/12/2022 11:14 Lymph % 22.6 % ()?? 01/12/2022 11:14 [place] % 5.9 % ()?? 01/12/2022 11:14 Eos % 1.0 % ()?? 01/12/2022 11:14 Baso % 0.4 % ()?? 01/12/2022 11:14 Imm Gran 0.1 % ()?? 01/12/2022 11:14 Abs. Imm Gran 0.0 k/mm3 ()?? 01/12/2022 11:14 ?? CHEM GENERAL Sodium 140 mmol/L ()?? 01/12/2022 11:14 Potassium 4.4 mmol/L ()?? 01/12/2022 11:14 Chloride 104 mmol/L ()?? 01/12/2022 11:14 Bicarbonate Level 28 mmol/L ()?? 01/12/2022 11:14 Anion Gap 8 ()?? 01/12/2022 11:14 Glucose Level 79 mg/dL ()?? 01/12/2022 11:14 BUN 10 mg/dL ()?? 01/12/2022 11:14 Creatinine-Blood 0.7 mg/dL ()?? 01/12/2022 11:14 Estimated GFR Creatinine 114 ML/MIN/1.73 M2 ()?? 01/12/2022 11:14 Calcium 9.1 mg/dL ()?? 01/12/2022 11:14 ?? ENDOCRINE/TUMOR MARKER Serum Qual NEGATIVE mIU/mL ()?? 01/12/2022 11:14 ?? UA/URINALYSIS Appear/Color, Urine YELLOW ()?? 01/12/2022 10:47 Specific [place], Urine 1.019 ()?? 01/12/2022 10:47 pH, Urine 7.5 ()?? 01/12/2022 10:47 Albumin, Urine 1+ (Abnormal)?? 01/12/2022 10:47 Glucose, Urine NEGATIVE ()?? 01/12/2022 10:47 Ketones, Urine NEGATIVE ()?? 01/12/2022 10:47 Bilirubin, Urine NEGATIVE ()?? 01/12/2022 10:47 Hemoglobin, Urine NEGATIVE ()?? 01/12/2022 10:47 Nitrite, Urine NEGATIVE ()?? 01/12/2022 10:47 Leukocyte, Urine NEGATIVE ()?? 01/12/2022 10:47 Urobilinogen 2 mg/dL (Abnormal)?? 01/12/2022 10:47 WBC's, Urine 1 /HPF ()?? 01/12/2022 10:47 RBC's, Urine NONE SEEN /HPF ()?? 01/12/2022 10:47 Bacteria SLIGHT HPF (Abnormal)?? 01/12/2022 10:47 Squamous Epith 11 /HPF (High)?? 01/12/2022 10:47 Transitional Epith 1 /HPF ()?? 01/12/2022 10:47 Amorphous Crystals SLIGHT /HPF ()?? 01/12/2022 10:47 Mucus SLIGHT /LPF ()?? 01/12/2022 10:47 Hold Urine Culture Testing available 48 hours from time of collection. ()?? 01/12/2022 10:47 ?? VIROLOGY COVID-19 POC Result NEGATIVE ()?? 01/12/2022 10:23 ? Hospital Progress note * Jazmine Bell RN: PERFORM, SIGN, VERIFY Event Display: Progress Note Hospital Authored Date: Patient: IGNACIA CASILLAS Age: 26 years Sex: Female : 1995 Associated Diagnoses: None Author: Jazmine Bell RN Findings Narrative/Incidental Ignacia is alert and oriented x 4. She has no c/o headache or dizziness, chest pain or SOB, nausea or vomiting. She c/o right flank pain 10/09, scheduled Toradol given with little effect, states prn oxycodone does not help either. She has a history of kidney stones, and stated that previously was sent home with PO morphine and that helped. Messaged night and they changed PRN IV Morphine to PO and that was given with good effect. She is observed oob to bathroom with steady gait, otherwise resting throughout the night. LR running at 75ML/HR. Call post within reach. * Kimmie Maldonado LPN: PERFORM, SIGN, VERIFY Event Display: Progress Note Hospital Authored Date: Patient: IGNACIA CASILLAS Age: 26 years Sex: Female : 1995 Associated Diagnoses: None Author: Kimmie Maldonado LPN Findings Nursing Data Cardiac Data. : Cardiac Data. 01/13/2022 7:30 EST Cardiovascular Symptoms None Skin Temperature Upper Extremities Warm Skin Temperature Lower Extremities Warm Heart Rhythm Regular Brachial Pulse, Left Normal Brachial Pulse, Right Normal Radial Pulse, Left Normal Radial Pulse, Right Normal Popliteal Pulse, Right Normal Posttibial Pulse, Left Normal Dorsalis Pedis Pulse, Left Normal Dorsalis Pedis Pulse, Right Normal Edema None property assessment monitor No Cardiovascular WNL except . Vital Signs : VITAL SIGNS SECTION 01/13/2022 7:31 EST Temperature 97.9 DegF Temperature Route Oral Pulse Rate 80 bpm Respiratory Rate 20 br/min Systolic Blood Pressure 144 mm Hg H Diastolic Blood Pressure 97 mm Hg H Blood pressure sites Arm, left Mean Arterial Pressure 113 mm Hg Pulse Pressure 47 mm Hg Oxygen Saturation 98 % Mode of Delivery (Oxygen) Room air . PT A&Ox4, independent, BP 144/[address] notify about BP. pt complains right flankpain 8/10 early at 7:00am given Tylenol and oxycodone 2.5 mg after 30minutes pt still c/o of the pain no much of changes. at 9:30 am patient given IV Morphine 4mg with effect. pt voided 400 cc of urine strained no stones yet. call post within reach. pt NPO waiting to be seen by urology. will keep managing the pain. * Chrystal PACHECO, Jovanna: PERFORM, MODIFY Event Display: Progress Note Hospital Authored Date: Patient: ??IGNACIA CASILLAS ? Age:??26 Years?Sex:??Female?:??1995?? Subjective ?? Overnight: No acute events overnight. AM: Continues to endorse severe right??flank pain, improved??with IV??pain medication??not significantly improved with her oral pain medication. ??Patient denies any nausea, vomiting, fever, chills. Interval:??Patient to be evaluated by urology today. ??Will increase her??as needed oxycodone to 5 mg,??and we will change her IV ketorolac from as needed to scheduled. ?? Review of Systems Full review of systems was completed and is negative except as noted above Objective Measurements?? Height: 155 cm (01/13/22) Weight: 81.5 kg (01/12/22) Dry Weight: 81.5 kg (01/12/22) Body Mass Index:??33.92 kg/m2??Critical (01/12/22) ? Vital Signs?? Temperature: 98.7 DegF (01/13/22 11:15:00) Temperature Route: Oral (01/13/22 11:15:00) Pulse Rate: 74 bpm (01/13/22 11:15:00) Respiratory Rate: 18 br/min (01/13/22 11:53:00) Systolic Blood Pressure: 114 mm Hg (01/13/22 11:15:00) Diastolic Blood Pressure: 78 mm Hg (01/13/22 11:15:00) Blood pressure sites: Arm, right (01/13/22 11:15:00) Mean Arterial Pressure: 90 mm Hg (01/13/22 11:15:00) Pulse Pressure: 36 mm Hg (01/13/22 11:15:00) Oxygen Saturation: 95 % (01/13/22 11:15:00) Mode of Delivery (Oxygen): Room air (01/13/22 11:15:00) Early Warning Score: 2 (01/13/22 12:57:02) ? Intake/Output? 01/12 09:57 01/13 07:00 01/12 07:00 01/11 07:00 01/10 07:00 ?? 01/13 13:30 01/13 13:30 01/13 06:59 01/12 06:59 01/11 06:59 Intake ?691.2 ?0 ?691.2 ?0 ?0 Output ?0 ?0 ?0 ?0 ?0 Net Total ?691.2 ?0 ?691.2 ?0 ?0 ? Physical Exam General:??No acute distress HEENT:??PERRLA, EOMI, moist mucus membranes Respiratory:??Clear to auscultation bilaterally, no wheezes/crackles Cardiovascular:??RRR, S1 and S2 heard with no M/R/G. Abdomen:??Normal active bowel sounds, soft, +right-sided CVA tenderness Musculoskeletal:??No LE edema, moving all extremities normally Neurologic:??Alert & Oriented, No focal neurologic deficits Skin:??Warm and dry, No rashes or lesions Psych: Normal mood and affect?? _ Inpatient Medications Medications (16) Active SCHEDULED: (5) Acetaminophen 325 mg Tablet (Acetaminophen Tablet) ??975 mg, By Mouth, 3 times a day Duloxetine 60 mg Capsule (DULoxetine Capsule) ??60 mg, By Mouth, Daily Ketorolac 30 mg/mL Inj (Toradol Inj) ??15 mg 0.5 mL, IV Push Slowly, Every 6 hours NaCl 0.9% Flush 3ml (NaCL 0.9% Flush) ??3 mL, IV Push, Every 8 hours Tamsulosin 0.4 mg Capsule (tamsulosin 0.4 mg oral capsule) ??0.4 mg, By Mouth, Daily at bedtime CONTINUOUS: (1) Lactated Ringers (1000 mL) Cont IV 1,000 mL (LR 1,000 mL) ??1,000 mL, IV Infusion, 75 mL/hr PRN: (10) Dextromethorphan-Guaifenesin 20 mg-200 mg/10 mL Liqu UD (Robitussin DM Liquid) ??10 mL, By Mouth, Every 4 hours Melatonin 3 mg Tablet (Melatonin Tablet) ??3 mg, By Mouth, Daily at bedtime MorPHINE 4 mg Inj Syringe (MorPHINE Inj) ??4 mg, IV Push Slowly, Every 4 hours NaCl 0.9% Flush 3ml (NaCL 0.9% Flush) ??3 mL, IV Push, Every 8 hours Ondansetron 2mg/mL Inj (2mL Vial) (Zofran Inj) ??4 mg, IV Push Slowly, Every 6 hours OxyCODONE 5 mg IR Tablet (oxyCODONE 5 mg oral tablet) ??5 mg, By Mouth, Every 6 hours Polyethylene Glycol 17 Gm Powder (MiraLax Powder) ??17 Gm 1 pack/packet, By Mouth, Daily Senna 8.6 mg / Docusate 50 mg tablet (Docusate/Senna Tablet) ??1 tablet, By Mouth, 2 times a day Simethicone 80 mg Chewable Tablet (Simethicone Tablet) ??80 mg, Chew, 3 times a day Trazodone 50 mg Tablet (traZODone 50 mg oral tablet) ??50 mg, By Mouth, Daily at bedtime ? Results Recent Labs BLOOD COUNT & DIFF WBC 6.1 k/mm3 ()?? 01/13/2022 00:13 RBC 4.02 m/mm3 (Low)?? 01/13/2022 00:13 Hgb 11.9 Gm/dL ()?? 01/13/2022 00:13 Hct 37.1 % ()?? 01/13/2022 00:13 MCV 92.3 femtoliters ()?? 01/13/2022 00:13 MCH 29.6 pg ()?? 01/13/2022 00:13 MCHC 32.1 g/dL (Low)?? 01/13/2022 00:13 Platelet Count 256 k/mm3 ()?? 01/13/2022 00:13 RDW-SD 42.5 femtoliters ()?? 01/13/2022 00:13 MPV 9.8 femtoliters ()?? 01/13/2022 00:13 Nucleated RBC (Automated) 0.0 #/100 WBC'S ()?? 01/13/2022 00:13 Abs. NRBC 0.0 k/mm3 ()?? 01/13/2022 00:13 Abs. Neut 4.7 k/mm3 ()?? 01/12/2022 11:14 Abs. Lymph 1.5 k/mm3 ()?? 01/12/2022 11:14 Abs. [place] 0.4 k/mm3 ()?? 01/12/2022 11:14 Abs. Eo 0.1 k/mm3 ()?? 01/12/2022 11:14 Abs. Baso 0.0 k/mm3 ()?? 01/12/2022 11:14 Neut % 70.0 % ()?? 01/12/2022 11:14 Lymph % 22.6 % ()?? 01/12/2022 11:14 [place] % 5.9 % ()?? 01/12/2022 11:14 Eos % 1.0 % ()?? 01/12/2022 11:14 Baso % 0.4 % ()?? 01/12/2022 11:14 Imm Gran 0.1 % ()?? 01/12/2022 11:14 Abs. Imm Gran 0.0 k/mm3 ()?? 01/12/2022 11:14 ?? CHEM GENERAL Sodium 142 mmol/L ()?? 01/13/2022 00:13 Potassium 4.1 mmol/L ()?? 01/13/2022 00:13 Chloride 103 mmol/L ()?? 01/13/2022 00:13 Bicarbonate Level 31 mmol/L (High)?? 01/13/2022 00:13 Anion Gap 8 ()?? 01/13/2022 00:13 Glucose Level 96 mg/dL ()?? 01/13/2022 00:13 BUN 9 mg/dL ()?? 01/13/2022 00:13 Creatinine-Blood 0.8 mg/dL ()?? 01/13/2022 00:13 Estimated GFR Creatinine 107 ML/MIN/1.73 M2 ()?? 01/13/2022 00:13 Calcium 9.1 mg/dL ()?? 01/12/2022 11:14 Magnesium 1.6 mg/dL ()?? 01/13/2022 00:13 ?? ENDOCRINE/TUMOR MARKER Serum Qual NEGATIVE mIU/mL ()?? 01/12/2022 11:14 ?? UA/URINALYSIS Appear/Color, Urine YELLOW ()?? 01/12/2022 10:47 Specific Oak, Urine 1.019 ()?? 01/12/2022 10:47 pH, Urine 7.5 ()?? 01/12/2022 10:47 Albumin, Urine 1+ (Abnormal)?? 01/12/2022 10:47 Glucose, Urine NEGATIVE ()?? 01/12/2022 10:47 Ketones, Urine NEGATIVE ()?? 01/12/2022 10:47 Bilirubin, Urine NEGATIVE ()?? 01/12/2022 10:47 Hemoglobin, Urine NEGATIVE ()?? 01/12/2022 10:47 Nitrite, Urine NEGATIVE ()?? 01/12/2022 10:47 Leukocyte, Urine NEGATIVE ()?? 01/12/2022 10:47 Urobilinogen 2 mg/dL (Abnormal)?? 01/12/2022 10:47 WBC's, Urine 1 /HPF ()?? 01/12/2022 10:47 RBC's, Urine NONE SEEN /HPF ()?? 01/12/2022 10:47 Bacteria SLIGHT HPF (Abnormal)?? 01/12/2022 10:47 Squamous Epith 11 /HPF (High)?? 01/12/2022 10:47 Transitional Epith 1 /HPF ()?? 01/12/2022 10:47 Amorphous Crystals SLIGHT /HPF ()?? 01/12/2022 10:47 Mucus SLIGHT /LPF ()?? 01/12/2022 10:47 Hold Urine Culture Testing available 48 hours from time of collection. ()?? 01/12/2022 10:47 ?? VIROLOGY COVID-19 POC Result NEGATIVE ()?? 01/12/2022 10:23 ? Abnormal Labs ?? BLOOD COUNT & DIFF ??Abs. NRBC ??0.0 k/mm3 () ??01/13/2022 00:13 ??MCHC ??32.1 g/dL (Low) ??01/13/2022 00:13 ??Nucleated RBC (Automated) ??0.0 #/100 WBC'S () ??01/13/2022 00:13 ??RBC ??4.02 m/mm3 (Low) ??01/13/2022 00:13 ??RDW-SD ??42.5 femtoliters () ??01/13/2022 00:13 ? CHEM GENERAL ??Bicarbonate Level ??31 mmol/L (High) ??01/13/2022 00:13 ??Estimated GFR Creatinine ??107 ML/MIN/1.73 M2 () ??01/13/2022 00:13 ? Note: Critical results are displayed in red. ? Assessment/Plan ?? Ms. Casillas is a 26-year-old female with a past medical history of nephrolithiasis s/p percutaneous nephrostomy, anxiety and depression who presented to [facility] [place] [place] ED??on 01/12/22??with right flank pain concerning fro renal colic. ?? Renal colic secondary to nephrolithiasis Patient with history of recurrent nephrolithiasis presenting with 1-day history of right-sided flank pain consistent with prior episodes of nephrolithiasis No systemic signs of infection and renal function at baseline No fevers, chills, dysuria, or UA evidence of infection Renal US: No hydronephrosis. 2 adjacent tiny nonshadowing bright reflectors in the lower pole of the right kidney (one of which was also seen on the prior study) may represent nonobstructive calculi versus vascular calcifications. Left kidney is unremarkable. CT abd/ pelvis: Bilateral nonobstructive nephrolithiasis. The overall stone burden has decreased ascompared to the prior CT from 2019. No hydronephrosis or ureterolithiasis. No CT evidence of acute intra-abdominal or pelvic abnormality Patient's pain is currently poorly controlled, will optimize pain management. ?? Plan - Gentle IV fluids?? - Tamsulosin - Pain control with scheduled Tylenol and Toradol - Increase prn oxycodone to 5mg - prn morphine if severe breakthrough pain - Zofran as needed for nausea/vomiting - Urology consulted, appreciate recommendations; No surgical intervention is warranted given no obstruction seen.? - Follow-up at [facility] urology for repeat renal bladder ultrasound and discussion of prevention of kidney stones in the near future ? Chronic, Stable or Resolved Conditions: Anxiety and depression: Continue home duloxetine ?? Quality Measures DVT prophylaxis: Low risk, patient ambulatory, pneumoboots while in bed Diet: Regular Code Status: Full HCP/Next of kin:?? PAVAN?Relation to Pt: Mother updated 01/13/22 ? Patient case and plan discussed with ??Maurice ? Jovanna Jarrell MD ?Internal Medicine PGY-1? #[id number] ? Note * Eugenia Desouza RN: PERFORM Event Display: Discharge/Transfer Note Hospital Authored Date: Nursing Discharge Note Entered On: 01/14/2022 12:22 EST Performed On: 01/14/2022 12:22 EST by Eugenia Desouza RN Nursing Discharge Note 2 Discharge Time : 01/14/2022 12:10 EST Discharge Level of Care at Discharge : Home/Correction/Foster Care Patient Left Unit Via : Ambulatory Patient Accompanied Off Unit with : Responsible adult DC Instructions Provided & Signed by Pt : Yes Patient Understands D/C Instructions : Yes Patient Instructions Discharge Signed : Yes Did Pt have Specialty Bed or Wound Vac : No Eugenia Desouza RN - 01/14/2022 12:22 EST * Jovanna Jarrell MD: MODIFY, PERFORM, MODIFY, MODIFY Event Display: Discharge/Transfer Note Hospital Authored Date: [id number] Patient: ??IGNACIA CASILLAS ? Age:??26 Years?Sex:??Female?:??1995?? Patient Information Discharge Location: [facility] Primary Care Physician: Jay Aldridge Admit Date/Time: 01/12/22 09:57 Discharge Disposition Discharge Disposition: Home: No Services Discharge Diagnosis Anxiety and depression (F41.9) Renal colic (N23) ?? _ Discharge Medications Acetaminophen (acetaminophen 325 mg oral tablet)?975?Milligram?3?tablet?By Mouth?3 times a day?for 7?Days Duloxetine (duloxetine 60 mg oral enteric coated capsule)?TAKE 1 CAPSULE BY MOUTH EVERY DAY Ibuprofen (ibuprofen 400 mg oral tablet)?400?Milligram?1?tablet?By Mouth?Every 4 hours?as needed?for pain Morphine (morphine 15 mg oral tablet, immediate release)?1?tab(s)?15?Milligram?By Mouth?Every 6 hours?as needed?Pain , Severe Ondansetron (ondansetron 4 mg oral tablet, disintegrating)?1?tab(s)?4?Milligram?By Mouth?Every 8 hours?as needed?as needed for nausea/vomiting Trazodone (traZODone 50 mg oral tablet)?TAKE 1 TABLET BY MOUTH EVERY NIGHT AT BEDTIME ? Medications Started Acetaminophen (acetaminophen 325 mg oral tablet)?975?Milligram?3?tablet?By Mouth?3 times a day?for 7?Days Ibuprofen (ibuprofen 400 mg oral tablet)?400?Milligram?1?tablet?By Mouth?Every 4 hours?as needed?for pain Morphine (morphine 15 mg oral tablet, immediate release)?1?tab(s)?15?Milligram?By Mouth?Every 6 hours?as needed?Pain , Severe Ondansetron (ondansetron 4 mg oral tablet, disintegrating)?1?tab(s)?4?Milligram?By Mouth?Every 8 hours?as needed?as needed for nausea/vomiting Medications Discontinued None. Doses Changed None. PCP Follow-Up/Heads-Up 1.?Challenging pain medication optimization. ??Was given a short course of??morphine tablets upon discharge (3x days). ??Please follow-up??with patient regarding??pain control. 2. ??Patient was requested??to follow-up with??[facility] for renal ultrasound.?? Please encourage patient to attend appointment ?? Hospital Course ??Ms. Casillas is a 26-year-old female with a past medical history of nephrolithiasis s/p percutaneous nephrostomy, anxiety and depression who presented to [facility] [place] [place] [facility]??on 01/12/22??with right flank pain concerning fro renal colic. Upon arrival in the emergency department today, patient was afebrile, hea rt rate??76 bpm, respirations 20, blood pressure 136/89, saturating 100% on room air oxygen.?? Laboratory work-up revealed no leukocytosis, no anemia, no electrolyte disturbances, BUN 10, creatinine 0.7, urinalysis relatively benign.?? Urology was contacted for recommendations on??pain control and likely discharge home if pain was well controlled.?? However, despite multiple doses of IV morphine,p.o. oxycodone, multiple doses of Zofran she continued to have uncontrolled right-sided flank pain and nausea and medical admission was requested for further evaluation and management. CT scan showedbilateral nonobstructive nephrolithiasis without hydronephrosis. ??Urology evaluated the patient the following day and recommended that??no surgical intervention is warranted given no obstruction seen. ??Patient was treated with IV fluids, tamsulosin and pain was managed with scheduled??acetaminophen, ketorolac and as needed??oxycodone??and IV morphine.?? Patient was requested to follow-up with [facility] for repeat renal bladder ultrasound and discussion of prevention of kidney stones.?? On day of discharge patient was hemodynamically stable??and ready for discharge home with thefollowing??recommendations. ? Renal colic secondary to nephrolithiasis Patient with history of recurrent nephrolithiasis presenting with 1-day history of right-sided flank pain consistent with prior episodes of nephrolithiasis No systemic signs of infection and renal function at baseline No fevers, chills, dysuria, or UA evidence of infection Renal US: No hydronephrosis. 2 adjacent tiny nonshadowing bright reflectors in the lower pole of the right kidney (one of which was also seen on the prior study) may represent nonobstructive calculi versus vascular calcifications. Left kidney is unremarkable. CT abd/ pelvis: Bilateral nonobstructive nephrolithiasis. The overall stone burden has decreased ascompared to the prior CT from 2019. No hydronephrosis or ureterolithiasis. No CT evidence of acute intra-abdominal or pelvic abnormality ?? Plan - Pain control: Tylenol, Ibuprofen, Morphine - Tamsulosin - Zofran as needed for nausea/vomiting - No surgical intervention is warranted currently per urology - Follow-up at [facility] for repeat renal bladder ultrasound and discussion of prevention of kidney stones in the near future ? Chronic, Stable or Resolved Conditions: Anxiety and depression: Continue home duloxetine Objective Measurements?? Height: 155 cm (01/14/22) Weight: 81.5 kg (01/12/22) Dry Weight: 81.5 kg (01/12/22) Body Mass Index:??33.92 kg/m2??Critical (01/12/22) ? Vital Signs?? Temperature: 97.8 DegF (01/14/22 07:36:00) Temperature Route: Oral (01/14/22 07:36:00) Pulse Rate: 83 bpm (01/14/22 07:36:00) Respiratory Rate: 18 br/min (01/14/22 07:36:00) Systolic Blood Pressure: 127 mm Hg (01/14/22 07:36:00) Diastolic Blood Pressure: 71 mm Hg (01/14/22 07:36:00) Blood pressure sites: Arm, right (01/14/22 07:36:00) Mean Arterial Pressure: 90 mm Hg (01/14/22 07:36:00) Pulse Pressure: 56 mm Hg (01/14/22 07:36:00) Oxygen Saturation: 98 % (01/14/22 07:36:00) Mode of Delivery (Oxygen): Room air (01/14/22 07:36:00) Early Warning Score: 2 (01/14/22 07:37:12) ? . Physical Exam General:??No acute distress HEENT:??PERRLA, EOMI, moist mucus membranes Respiratory:??Clear to auscultation bilaterally, no wheezes/crackles Cardiovascular:??RRR, S1 and S2 heard with no M/R/G. No JVD Abdomen:??Normal active bowel sounds, soft, +right-sided CVA tenderness Musculoskeletal:??No LE edema, moving all extremities normally Neurologic:??Alert & Oriented, No focal neurologic deficits Skin:??Warm and dry, No rashes or lesions Psych: Normal mood and affect?? Consultants Isabel PACHECO, Porter Wilkins. Patient Education Titles Ibuprofen Oral Tablet?? Acetaminophen Oral Capsule?? Morphine Oral Tablet?? Preventing Kidney Stones?? Anatomy of the Female Urinary Tract?? Kidney Stone w/ Colic?? Follow-Up Appointments Added Follow Up ?Time Frame ?Comments [facility]?2 to 3 weeks?Please call to confirm appointment. Jay Aldridge?1 to 2 weeks?Please call to arrange appointment Patient Instructions You presented to [facility] emergency department on 01/12/2022 with flank pain.?? The doctors in the emergency department did some lab test and imaging which showed that you might be experiencing kidney stones.?? You were admitted to the hospital and were treated with IV fluids, pain management and tamsulosin.?? The next day you were seen by urology, the doctors who specialize in [facility].?? The urologist recommended that no intervention was needed as there is no signs of obstruction.?? We have started you on some new medication.?? Please find the instructions on how to take this medication below.?? Please take this medication as instructed.?? Please visit your primary care provider within 1-2 week of leaving the hospital.?? If you begin to experience any new abdominal pain, nausea, vomiting, fevers, chills, rigors is visit your nearest emergency department.? Medications Started Acetaminophen??975?Milligram?3?tablet?By Mouth?3 times a day?for 7?Days Ibuprofen?400?Milligram?1?tablet?By Mouth?Every 4 hours?as needed?for pain Morphine?1?tab(s)?15?Milligram?By Mouth?Every 6 hours?as needed?Pain , Severe Ondansetron??1?tab(s)?4?Milligram?By Mouth?Every 8 hours?as needed?as needed for nausea/vomiting ?? Medications Discontinued None. Doses Changed None. Home Health Face to Face ^HomeHealthFTF Results Discharge Labs BLOOD COUNT & DIFF WBC 5.7 k/mm3 ()?? 01/14/2022 00:26 RBC 3.73 m/mm3 (Low)?? 01/14/2022 00:26 Hgb 11.0 Gm/dL (Low)?? 01/14/2022 00:26 Hct 34.9 % (Low)?? 01/14/2022 00:26 MCV 93.6 femtoliters ()?? 01/14/2022 00:26 MCH 29.5 pg ()?? 01/14/2022 00:26 MCHC 31.5 g/dL (Low)?? 01/14/2022 00:26 Platelet Count 243 k/mm3 ()?? 01/14/2022 00:26 RDW-SD 43.8 femtoliters ()?? 01/14/2022 00:26 MPV 9.9 femtoliters ()?? 01/14/2022 00:26 Nucleated RBC (Automated) 0.0 #/100 WBC'S ()?? 01/14/2022 00:26 Abs. NRBC 0.0 k/mm3 ()?? 01/14/2022 00:26 Abs. Neut 4.7 k/mm3 ()?? 01/12/2022 11:14 Abs. Lymph 1.5 k/mm3 ()?? 01/12/2022 11:14 Abs. [place] 0.4 k/mm3 ()?? 01/12/2022 11:14 Abs. Eo 0.1 k/mm3 ()?? 01/12/2022 11:14 Abs. Baso 0.0 k/mm3 ()?? 01/12/2022 11:14 Neut % 70.0 % ()?? 01/12/2022 11:14 Lymph % 22.6 % ()?? 01/12/2022 11:14 [place] % 5.9 % ()?? 01/12/2022 11:14 Eos % 1.0 % ()?? 01/12/2022 11:14 Baso % 0.4 % ()?? 01/12/2022 11:14 Imm Gran 0.1 % ()?? 01/12/2022 11:14 Abs. Imm Gran 0.0 k/mm3 ()?? 01/12/2022 11:14 ?? CHEM GENERAL Sodium 139 mmol/L ()?? 01/14/2022 00:26 Potassium 3.9 mmol/L ()?? 01/14/2022 00:26 Chloride 102 mmol/L ()?? 01/14/2022 00:26 Bicarbonate Level 30 mmol/L (High)?? 01/14/2022 00:26 Anion Gap 7 ()?? 01/14/2022 00:26 Glucose Level 124 mg/dL (High)?? 01/14/2022 00:26 BUN 9 mg/dL ()?? 01/14/2022 00:26 Creatinine-Blood 0.8 mg/dL ()?? 01/14/2022 00:26 Estimated GFR Creatinine 110 ML/MIN/1.73 M2 ()?? 01/14/2022 00:26 Calcium 8.8 mg/dL ()?? 01/14/2022 00:26 Magnesium 1.6 mg/dL ()?? 01/13/2022 00:13 ? ENDOCRINE/TUMOR MARKER Serum Qual NEGATIVE mIU/mL ()?? 01/12/2022 11:14 ? HEME OTHER Hold Lavender Top SPECIMEN DISCARDED AFTER 24 HOURS. ()?? 01/14/2022 00:26 ? MISC. CHEMISTRY Hold Gel Top SPECIMEN DISCARDED AFTER 1 WEEK ()?? 01/14/2022 00:26 ? UA/URINALYSIS Appear/Color, Urine YELLOW ()?? 01/12/2022 10:47 Specific Oak, Urine 1.019 ()?? 01/12/2022 10:47 pH, Urine 7.5 ()?? 01/12/2022 10:47 Albumin, Urine 1+ (Abnormal)?? 01/12/2022 10:47 Glucose, Urine NEGATIVE ()?? 01/12/2022 10:47 Ketones, Urine NEGATIVE ()?? 01/12/2022 10:47 Bilirubin, Urine NEGATIVE ()?? 01/12/2022 10:47 Hemoglobin, Urine NEGATIVE ()?? 01/12/2022 10:47 Nitrite, Urine NEGATIVE ()?? 01/12/2022 10:47 Leukocyte, Urine NEGATIVE ()?? 01/12/2022 10:47 Urobilinogen 2 mg/dL (Abnormal)?? 01/12/2022 10:47 WBC's, Urine 1 /HPF ()?? 01/12/2022 10:47 RBC's, Urine NONE SEEN /HPF ()?? 01/12/2022 10:47 Bacteria SLIGHT HPF (Abnormal)?? 01/12/2022 10:47 Squamous Epith 11 /HPF (High)?? 01/12/2022 10:47 Transitional Epith 1 /HPF ()?? 01/12/2022 10:47 Amorphous Crystals SLIGHT /HPF ()?? 01/12/2022 10:47 Mucus SLIGHT /LPF ()?? 01/12/2022 10:47 Hold Urine Culture Testing available 48 hours from time of collection. ()?? 01/12/2022 10:47 ? VIROLOGY COVID-19 POC Result NEGATIVE ()?? 01/12/2022 10:23 ? Imaging(s) ?US Retroperitoneum Comp ?? 01/12/2022 18:00??by Lenora Hinds MD ?No hydronephrosis. ??2 adjacent tiny nonshadowing bright reflectors in the lower pole of the right kidney (one of which was also seen on the prior study) may represent nonobstructive calculi versus vascular calcifications. Left kidney is unremarkable. ?CT Abdomen and Pelvis W/O Contrast ?? 01/12/2022 19:52??by Lenora Hinds MD ?Bilateral nonobstructive nephrolithiasis. The overall stone burden has decreased as compared to the prior CT from 2019. No hydronephrosis or ureterolithiasis. ?? No CT evidence of acute intra-abdominal or pelvic abnormality. ? 35_ minutes spent on discharge ? Patient case and plan discussed with ??Maurice ? Jovanna Jarrell MD ?Internal Medicine PGY-1? #[id number] ?? * MISTI Castro , Stephanie: PERFORM Event Display: Patient Education/Instruction Authored Date: [id number] Inpatient Adult Discharge Instructions [place] [id number] Name: IGNACIA CASILLAS : 1995 Visit: 01/12/2022 09:57:00 Current Date: 01/14/2022 11:56 Account: [id number] Inpatient Adult Discharge Instructions We would like [...] and their families. Surveys are administered by [employer]. ?? If further treatment with your primary care physician or another doctor is recommended, it is important for you to keep the appointment. Call your primary care physician or return to the Emergency Department immediately if your condition worsens, fails to improve, or new symptoms develop. If you need to find a doctor, you can call [facility] [employer] for a referral at [phone] or toll free at [phone] Online ([phone]) or log in to [email or web address] ?? You can view and manage your care through the patient portal or by using a health care mack of your choosing. [employer] is a website that allows you to securely view your medical information including your hospital discharge summary, office visit summaries, medications and follow-up visits. You can also request appointments, renew medications, and request access to your medical information using a health care mack of your choosing, or just ask a question. You can enroll at [email or web address] or register during your next office visit. You have been discharged from [facility], Patient Care Unit: D3B. If you have any questions regarding these instructions after you leave, please call us and we will be happy to assist you. [facility] Your Care Team Attending Physician Maurice PACHECO, [employer] Consult[employer] Providers Jamie Kraus Discharging Providers Jovanna Jarrell MD Reason for Admission Flank pain, General medical Your Diagnosis Anxiety and depression Renal colic Tests Performed Below is a partial list of the tests performed during your hospitalization. You may have had other tests and procedures not included in this list. Please discuss all test results with your provider. Basic Metabolic Panel BUN CBC CBC w/ Differential COVID-19 RNA POC Creatinine Electrolytes Glucose Level HOLD GEL TUBE HOLD LAVENDER TUBE Magnesium Level Serum Qualitative Urinalysis w/hold for Urine Culture CT Abdomen and Pelvis W/O Contrast US Retroperitoneum Comp Primary Care Provider Jay Aldridge Advance Directive Health Care Proxy on File No Patient is <18 years old No qualifying data available. Discharge Vitals Temperature: 97.8 DegF Height: 155 cm Pulse Rate: 83 bpm Weight: 81.5 kg Respiratory Rate: 18 br/min Body Mass Index:??33.92 kg/m2??Critical Systolic Blood Pressure: 127 mm Hg Body surface area: 1.87 Diastolic Blood Pressure: 71 mm Hg ?? Oxygen Saturation: 98 % ?? Studies Pending All tests and labs ordered during this hospital stay have been completed unless listed below. Please discuss all pending results with your provider listed above in these instructions. ?? COVID-19 (2019 Novel Coronavirus) PCR What to do next Instructions From Your Doctor You presented to [facility] emergency department on 01/12/2022 with flank pain.?? The doctors in the emergency department did some lab test and imaging which showed that you might be experiencing kidney stones.?? You were admitted to the hospital and were treated with IV fluids, pain management and tamsulosin.?? The next day you were seen by urology, the doctors who specialize in [facility].?? The urologist recommended that no intervention was needed as there is no signs of obstruction.?? We have started you on some new medication.?? Please find the instructions on how to take this medication below.?? Please take this medication as instructed.?? Please visit your primary care provider within 1-2 week of leaving the hospital.?? If you begin to experience any new abdominal pain, nausea, vomiting, fevers, chills, rigors is visit your nearest emergency department.? Medications Started Acetaminophen??975?Milligram?3?tablet?By Mouth?3 times a day?for 7?Days Ibuprofen?400?Milligram?1?tablet?By Mouth?Every 4 hours?as needed?for pain Morphine?1?tab(s)?15?Milligram?By Mouth?Every 6 hours?as needed?Pain , Severe Ondansetron??1?tab(s)?4?Milligram?By Mouth?Every 8 hours?as needed?as needed for nausea/vomiting ?? Medications Discontinued None. Doses Changed None. Discharge Orders You Need to Schedule the Following Appointments Follow Up with??[facility] urology When??Within 2 to 3 weeks Why: Please call to confirm appointment. Where: Follow Up with??Bob PRAJAPATI, Jay Mike When??Within 1 to 2 weeks Why: Please call to arrange appointment Where: [address] [place] [phone]- Discharge Medications IGNACIA CASILLAS :1995 Visit Date:01/12/2022 Medications: Please continue your medications until treatment is completed or stopped by your provider. Medications not listed below should be discontinued. Discuss any questions related to medications with your provider. What How Much When Instructions Next Dose New Morphine (morphine 15 mg oral tablet, immediate release) 1 tab(s) Oral Every 6 hours as needed for Pain , Severe Pickup at [place] [address] 01/14 due after 345 pm Changed Acetaminophen (acetaminophen 325 mg oral tablet) 3 tab(s) Oral 3 times a day Duration: 7 Days Pickup at [place] [address] 01/14 4pm Changed Ibuprofen (ibuprofen 400 mg oral tablet) 1 tab(s) Oral Every 4 hours as needed for for pain Pickup at [place] [address] 01/14 due after 1245 Changed Ondansetron (ondansetron 4 mg oral tablet, disintegrating) 1 tab(s) Oral Every 8 hours as needed for as needed for nausea/vomiting Pickup at [place] [address] as needed Unchanged Duloxetine (duloxetine 60 mg oral enteric coated capsule) TAKE 1 CAPSULE BY MOUTH EVERY DAY ?? 01/15 8am Unchanged Trazodone (traZODone 50 mg oral tablet) TAKE 1 TABLET BY MOUTH EVERY NIGHT AT BEDTIME ?? at bedtime Pharmacy Information [facility] [address]: [address], [place] [id number] [phone] ?? What How Much When Why Comments Stop Taking Docusate (Colace sodium 100 mg oral capsule) 1 capsule Oral Twice a day as needed for for constipation Stop Taking Docusate-Senna (docusate-senna 50 mg-187 mg oral tablet) 1 tab(s) Oral Daily at Bedtime Stop Taking Ferrous Sulfate (Slow Fe (as elemental iron) 45 mg oral tablet, extended release) 1 tab(s) Oral Every other day Anemia Stop Taking Hydromorphone (Dilaudid 2 mg oral tablet) 1 tab(s) Oral Every 4 hours as needed for as needed for pain Stop Taking Multivitamin, ( Multivitamins with Folic Acid 1 mg oral capsule) See instructions TAKE ONE DAILY BY MOUTH ?? Stop Taking Oxycodone (oxyCODONE 5 mg oral tablet) See instructions Abdominal pain 1 tablet By Mouth Every 6 hours as needed for pain ?? Stop Taking Senna (Senna 8.6 mg oral tablet) 1 tab(s) Oral Daily as needed for for constipation Stop Taking Sertraline (sertraline 50 mg oral tablet) TAKE 1 TABLET BY MOUTH EVERY DAY ?? Stop Taking Tamsulosin (Flomax 0.4 mg oral capsule) 1 capsule Oral Daily Stop Taking Tamsulosin (Flomax 0.4 mg oral capsule) 1 capsule Oral Daily Stop Taking Tamsulosin (tamsulosin 0.4 mg oral capsule) 1 capsule Oral Daily Stop Taking Tramadol (traMADol 50 mg oral tablet) TAKE 1 TABLET BY MOUTH EVERY 4 TO 6 HOURS NEEDED FOR PAIN ?? Test Results Below is a partial list of the most recent Laboratory test results done prior to this discharge. You may have had other tests and procedures not included in this list. Please discuss all test resultswith your provider. Basic Metabolic Panel (01/14/2022) ???Sodium - 139 mmol/L???Potassium - 3.9 mmol/L???Chloride - 102 mmol/L???Bicarbonate Level - 30 mmol/L???Anion Gap - 7???Glucose Level - 124 mg/dL???BUN - 9 mg/dL???Creatinine-Blood - 0.8 mg/dL???Estimated GFR Creatinine - 110 ML/MIN/1.73 M2???Calcium - 8.8 mg/dL BUN (01/13/2022) ???BUN - 9 mg/dL CBC (01/14/2022) ???WBC - 5.7 k/mm3???RBC - 3.73 m/mm3???Hgb - 11.0 Gm/dL???Hct - 34.9 %???MCV - 93.6 femtoliters???MCH - 29.5 pg???MCHC - 31.5 g/dL???Platelet Count - 243 k/mm3???RDW-SD - 43.8 femtoliters???MPV - 9.9 femtoliters???Nucleated RBC (Automated) - 0.0 #/100 WBC'S???Abs. NRBC - 0.0 k/mm3 CBC w/ Differential (01/12/2022) ???WBC - 6.7 k/mm3???RBC - 4.01 m/mm3???Hgb - 11.8 Gm/dL???Hct - 36.4 %???MCV - 90.8 femtoliters???MCH - 29.4 pg???MCHC - 32.4 g/dL???Platelet Count - 234 k/mm3???RDW-SD - 41.1 femtoliters???MPV - 9.4 femtoliters???Nucleated RBC (Automated) - 0.0 #/100 WBC'S???Abs. NRBC - 0.0 k/mm3???Abs. Neut - 4.7 k/mm3???Abs. Lymph - 1.5 k/mm3???Abs. [place] - 0.4 k/mm3???Abs. Eo - 0.1 k/mm3???Abs. Baso - 0.0 k/mm3???Neut % - 70.0 %???Lymph % - 22.6 %???[place] % - 5.9 %???Eos % - 1.0 %???Baso % - 0.4 %???Imm Gran- 0.1 %???Abs. Imm Gran - 0.0 k/mm3 COVID-19 RNA POC (01/12/2022) ???COVID-19 POC Result - NEGATIVE Creatinine (01/13/2022) ???Creatinine-Blood - 0.8 mg/dL???Estimated GFR Creatinine - 107 ML/MIN/1.73 M2 Electrolytes (01/13/2022) ???Sodium - 142 mmol/L???Potassium - 4.1 mmol/L???Chloride - 103 mmol/L???Bicarbonate Level - 31 mmol/L???Anion Gap - 8 Glucose Level (01/13/2022) ???Glucose Level - 96 mg/dL HOLD GEL TUBE (01/14/2022) ???Hold Gel Top - SPECIMEN DISCARDED AFTER 1 WEEK HOLD LAVENDER TUBE (01/14/2022) ???Hold Lavender Top - SPECIMEN DISCARDED AFTER 24 HOURS. Magnesium Level (01/13/2022) ???Magnesium - 1.6 mg/dL Serum Qualitative (01/12/2022) ??? Serum Qual - NEGATIVE Urinalysis w/hold for Urine Culture (01/12/2022) ???Appear/Color, Urine - YELLOW???Specific [place], Urine - 1.019???pH, Urine - 7.5???Albumin, Urine - 1+???Glucose, Urine - NEGATIVE???Ketones, Urine - NEGATIVE???Bilirubin, Urine - NEGATIVE???Hemoglobin, Urine - NEGATIVE???Nitrite, Urine - NEGATIVE???Leukocyte, Urine - NEGATIVE???Urobilinogen - 2mg/dL???WBC's, Urine - 1 /HPF???RBC's, Urine - NONE SEEN???Bacteria - SLIGHT???Squamous Epith - 11 /HPF???Transitional Epith - 1 /HPF???Amorphous Crystals - SLIGHT???Mucus - SLIGHT???Hold Urine Culture - Testing available 48 hours from time of collection. Allergies (NKA means No Known Allergies) Macrobid Problems Active Problems??(8) Anxiety?? H/O Chronic pelvic pain in female?? H/O GDM?? H/O Renal lithiasis?? History of delivery?? Nephrolithiasis?? Obese class I?? Uses Kosovan as primary spoken language?? Education Materials Below is the list of Educational Leaflet Providered with your Discharge Instructions. Ibuprofen Oral Tablet?? Acetaminophen Oral Capsule?? Morphine Oral Tablet?? Preventing Kidney Stones?? Anatomy of the Female Urinary Tract?? Kidney Stone w/ Colic?? Valuables and Belongings I fully understand and agree that [facility] accepts no responsibility for all my [...] encouraged to send valuables and belongings home. ?? No Valuables/Belongings: No valuables/belongings present Review of Valuable and Belonging List: With witness Possessions released to: no medical devices present at this time. Date for Pt to Sign Valuables/Belongings: 01/12/22 15:25:00 ?? Other Discharge Information ? Pulmonary Rehab Status?? Pulmonary Rehab Discharge Status?? Respiratory Rate: 18 br/min ? Common Emergency Awareness Tips IS IT [...] are strongly encouraged to quit. Please call [facility] [address] at [phone] or [phone] ([phone]) or log in to [email or web address] for referrals to smoking cessation programs. ?? The National Suicide Prevention Hotline is available 22/09 if you or someone you know needs to find a reason to keep living. By calling 6-565-811Monkey Bizness (0715) you'll be connected to a skilled, trained counselor at a crisis center in your area. INPATIENT DISCHARGE INSTRUCTIONS SIGNATURE PAGE IGNACIA CASILLAS Location:[facility] Registration Date and Time:01/12/2022 09:57 EST Primary Care Physician: Jay Aldridge, I SONJA IGNACIA, have received the above patient education materials/instructions and have verbalized understanding. If ambulance or transport services are being used I further acknowledge being given a choice of service. ?? If you need to contact me, please call me at this number: . Patient/Mathematics Department Chair Name: Patient/Mathematics Department Chair Signature: Relationship to Patient: Witness Name/Signature: Date: * Jovanna Jarrell MD: PERFORM Event Display: Patient Education Leaflets Authored Date: [id number] Ibuprofen Oral Tablet ?? [id number] Ibuprofen Oral Tablet Brands: Addaprin, Advil, Counteract IB, Genpril, Ibu, Ibuprohm, Ibutab, Motrin, Proprinal, Blake 8, Wal-Profen Usos Leona medicamento se usa para las siguientes afecciones: ??? dolor ??? artritis ??? fiebre ??? gota ?? Instrucciones Terramuggus el medicamento con 250 ml (1 taza) de agua. Sentarse o pararse con la espalda recta rochelle 10 minutos despu??s de tarun el medicamento. No acostarse. Puede tomarse con alimentos para prevenir molestias estomacales. Mantenga el medicamento a temperatura ambiente, alejado vinicius y el calor. Estrada bastante agua mientras est?? usando leona medicamento. Leona medicamento puede hacer que tenga mayor sensibilidad al veronica. Use ropa o crema protectora cuando se exponga al veronica. Las interacciones con otros medicamentos pueden cambiar la forma en que act??an los medicamentos o aumentar el riesgo de presentar efectos secundarios. Informe a el profesionales sanitarios acerca de todos los medicamentos que usa. [place] incluye medicamentos con y sin receta m??dica, vitaminas y medicamentos a base de hierbas. Hable con leal m??dico o farmac??utico antes de empezar o dejar de usar cualquier medicamento. Informe a leal m??dico si el s??ntomas no mejoran o si empeoran. Hable con leal m??dico antes de tarun otros medicamentos, incluso las aspirinas y los productos que contienen ibuprofeno. Hable con leal m??dico acerca de los medicamentos que puede usar sin riesgos mientras use leona medicamento. ?? Precauciones Informe a leal m??dico y a leal farmac??utico si alguna vez vanegas tenido meek reacci??n al??rgica a un medicamento. Leona medicamento se asocia con un mayor riesgo de problemas card??acos graves, ataque al coraz??n yderrame cerebral. Hable con leal m??dico acerca de los riesgos y beneficios de usar leona medicamento.Comun??quese con leal m??dico de inmediato si tiene dolor de pecho o dificultad para respirar. Leona medicamento puede causar sangrado intenso del est??jayy o los intestinos. Deje de tarun leona medicamento y llame a leal m??dico inmediatamente si nota alguna se??al de sangrado. El sangrado puede causar dolor de est??jayy, v??luna de un l??quido parecido a caf?? molido y heces de color jacinto, o alquitranadas y oscuras. No use el medicamento m??s veces de lo indicado. Leona medicamento puede afectar leal capacidad de mantenerse alerta o de reaccionar con rapidez. No maneje ni opere m??quinas hasta que sepa qu?? efecto le provocar?? leona medicamento. Consulte a leal m??dico antes de beber alcohol mientras usa leona medicamento. Evite fumar mientras use leona medicamento. Fumar puede aumentar el riesgo de derrame cerebral, ataque al coraz??n, c??agulos, presi??n arterial christian, y otras enfermedades del coraz??n y los vasos sangu??neos. Leona medicamento pasa a la leche materna. Consulte a leal m??dico antes de amamantar. Leona medicamento puede causar da??os a un beb?? en el ??tero. Si queda embarazada mientras usa estemedicamento, av??danelle a leal m??dico de inmediato. El m??dico puede cambiar el medicamento por otro diferente. No comparta leona medicamento con otras personas a quienes no se les recet??. Algunos pacientes presentan efectos secundarios graves con leona medicamento. P??spenser a leal farmac??utico que le muestre la informaci??n de la Administraci??n de Alimentos y Medicamentos (FDA) y que laanalice con usted. ?? Efectos Secundarios La siguiente es meek lista de algunos efectos secundarios comunes de leona medicamento. Hable con el m??dico para saber qu?? debe hacer en nik de tener estos u otros efectos secundarios. ??? estre??imiento o diarrea ??? mareos ??? exceso de gases ??? christian presi??n arterial ??? n??useasy v??mitos ??? indigesti??n estomacal o dolor abdominal Llame al m??dico u obtenga atenci??n m??dica de inmediato si nota cualquiera de estos efectos secundarios m??s graves: ??? sangrado o moretones ??? dolor en el pecho o la lev??bula ??? tos con jose, o v??luna con aspecto de poso de caf? hinchaz??n de las piernas, pies y daphne ??? fiebre ??? hinchaz??n en el karishma o la garganta ??? signos de da??o hep??harry (tales augustina cambios en el color de la orina o burbujas en la orina) ??? signos de da??o hep??harry (tales augustina ojos o piel amarillentos, orina oscura ocansancio inusual) ??? cambios de estado de ??leia ??? zumbido en los o??dos ??? falta de aliento ??? heces oscuras, de aspecto alquitranado ??? s??ntomas de accidente cerebrovascular (por ejemplo, debilidad en un lado del cuerpo, hablar arrastrando las palabras, confusi??n) ??? sudoraci??n excesiva o inusual ??? visi??n borrosa o cambios en la visi??n ??? v??luna intenso o persistente ??? aumento de peso repentino o inexplicado Algunas personas podr??an tener reacciones al??rgicas a leona medicamento. Entre los s??ntomas pueden incluirse: dificultad para respirar, erupci??n en la piel, comez??n, hinchaz??n o mareos intensos.Si nota algunos de estos s??ntomas, busque asistencia m??dica r??pidamente. ?? Extra Hable con leal m??dico, enfermero o farmac??utico si tiene alguna pregunta acerca de leona medicamento. ?? [email or web address] NOTA IMPORTANTE: En leona documento hay meek explicaci??n breve sobre c??mo usar el medicamento, perono incluye todo lo que hay que saber acerca del medicamento. Leal m??dico o leal farmac??utico podr??a suministrarle otros documentos acerca de leal medicamento. Comun??quese con ellos si tiene alguna pregunta. Siga siempre el consejos. Meek descripci??n m??s completa de leona medicamento est?? disponibleen ingl??s. Escanee leona c??digo en leal tel??fono inteligente o en leal tableta, o use la direcci??n web que aparece a continuaci??n. Tambi??n puede pedirle a leal farmac??utico meek copia impresa. Si tiene alguna pregunta, h??gasela a leal farmac??utico. La exhibici??n y el uso de esta informaci??n sobre f??rmacos est?? sujeta a los T??rminos de Uso. Copyright(c) 2021 [employer]. ?? 2341-8592 [employer]. All rights reserved. This information is not intended as a substitute for professional medical care. Always follow your healthcare professional's instructions. ?? * Chrystal PACHECO, Jovanna: PERFORM Event Display: Patient Education Leaflets Authored Date: [id number] Acetaminophen Oral Capsule ?? [id number] Acetaminophen Oral Capsule Brands: Tylenol Usos Leona medicamento se usa para las siguientes afecciones: ??? dolor ??? fiebre ?? Instrucciones Leona medicamento se puede tarun con o sin alimentos. Guarde a temperatura ambiente, alejado del calor, la marilee y la humedad. No lo guarde en el ba??o. Las interacciones con otros medicamentos pueden cambiar la forma en que act??an los medicamentos o aumentar el riesgo de presentar efectos secundarios. Informe a el profesionales sanitarios acerca de todos los medicamentos que usa. [place] incluye medicamentos con y sin receta m??dica, vitaminas y medicamentos a base de hierbas. Hable con leal m??dico o farmac??utico antes de empezar o dejar de usar cualquier medicamento. Informe a leal m??dico si el s??ntomas no mejoran o si empeoran. Puede dejar de tarun loena medicamento si ya no tiene s??ntomas. No tarun m??s de 12 p??ldoras por d??a. ?? Precauciones Informe a leal m??dico y a leal farmac??utico si alguna vez vanegas tenido meek reacci??n al??rgica a un medicamento. No use el medicamento m??s veces de lo indicado. No estrada nada que contenga alcohol mientras use leona medicamento. Informe a leal m??dico o farmac??utico si est?? o planea quedar embarazada, o si est?? amamantando. Leona medicamento contiene acetaminof??n. Hay muchos medicamentos con acetaminof??n. Si usa estos medicamentos al mismo tiempo puede consumir demasiado acetaminof??n. [place] puede ocasionar problemas graves en el h??gado. Jennie atentamente las etiquetas de todos el medicamentos para isabell si el acetaminof??n aparece en la lista de ingredientes. Pregunte a leal farmac??utico cu??les medicamentos puede tarun sin correr peligro. ?? Efectos Secundarios Si tiene alguno de los siguientes efectos secundarios, es posible que est?? recibiendo demasiada cantidad del medicamento. Comun??quese con leal m??dico para informarle sobre estos efectos secundarios. ??? signos de da??o hep??harry (tales augustina ojos o piel amarillentos, orina oscura o cansancio inusual) Llame al m??dico u obtenga atenci??n m??dica de inmediato si nota cualquiera de estos efectos secundarios m??s graves: ??? enrojecimiento, ardor o picaz??n en la piel Leona medicamento generalmente no tiene efectos secundarios. Algunas personas podr??an tener reacciones al??rgicas a leona medicamento. Entre los s??ntomas pueden incluirse: dificultad para respirar, erupci??n en la piel, comez??n, hinchaz??n o mareos intensos.Si nota algunos de estos s??ntomas, busque asistencia m??dica r??pidamente. ?? Extra Hable con leal m??dico, enfermero o farmac??utico si tiene alguna pregunta acerca de leona medicamento. ?? [email or web address] NOTA IMPORTANTE: En leona documento hay meek explicaci??n breve sobre c??mo usar el medicamento, perono incluye todo lo que hay que saber acerca del medicamento. Leal m??dico o leal farmac??utico podr??a suministrarle otros documentos acerca de leal medicamento. Comun??quese con ellos si tiene alguna pregunta. Siga siempre el consejos. Meek descripci??n m??s completa de leona medicamento est?? disponibleen ingl??s. Escanee leona c??digo en leal tel??fono inteligente o en leal tableta, o use la direcci??n web que aparece a continuaci??n. Tambi??n puede pedirle a leal farmac??utico meek copia impresa. Si tiene alguna pregunta, h??gasela a leal farmac??utico. La exhibici??n y el uso de esta informaci??n sobre f??rmacos est?? sujeta a los T??rminos de Uso. Copyright(c) 2021 [employer]. ?? [id number] [employer]. All rights reserved. This information is not intended as a substitute for professional medical care. Always follow your healthcare professional's instructions. ?? * Chrystal PACHECO, Jovanna: PERFORM Event Display: Patient Education Leaflets Authored Date: [id number] Morphine Oral Tablet ?? [id number] Morphine Oral Tablet Usos Para el dolor. ?? Instrucciones Leona medicamento se puede tarun con o sin alimentos. Guarde a temperatura ambiente, alejado del calor, la mairlee y la humedad. No lo guarde en el ba??o. Pregunte a leal m??dico, enfermero o farmac??utico c??mo desechar de forma ball los medicamentos sin usar. Para reducir el estre??imiento, consuma alimentos con alto contenido de fibra, estrada monica agua y mario ejercicio. Las interacciones con otros medicamentos pueden cambiar la forma en que act??an los medicamentos o aumentar el riesgo de presentar efectos secundarios. Informe a el profesionales sanitarios acerca de todos los medicamentos que usa. [place] incluye medicamentos con y sin receta m??dica, vitaminas y medicamentos a base de hierbas. Hable con leal m??dico o farmac??utico antes de empezar o dejar de usar cualquier medicamento. Informe a leal m??dico si el s??ntomas no mejoran o si empeoran. ?? Precauciones Leona medicamento contiene un opioide. Aunque los opioides ayudan a muchas personas, pueden causar adicci??n, en especial si se usan rochelle moiz tiempo. El riesgo de adicci??n es mayor si usted padece un trastorno de uso de sustancias (uso excesivo de drogas o alcohol, o adicci??n a estas sustancias). Preg??ntele a leal m??dico acerca de los beneficios y los riesgos. Pregunte a leal m??dico o a leal farmac??utico si usted debe tener naloxona disponible para tratar meek sobredosis por opioides. Ens?elias a el familiares o a las personas que viven con usted a identificar los signos de meek sobredosis por opioides y c??mo tratarla. Si vandana de tarun leona medicamento repentinamente despu??s de usarlo con regularidad rochelle moiz tiempo, puede tener s??ntomas de abstinencia. Leal m??dico podr??a pedirle que reduzca la dosis lentamente antes de dejar de usar el medicamento. Informe a leal m??dico de inmediato si nota cualquier s??ntoma de abstinencia. Los s??ntomas de abstinencia pueden incluir sudoraci??n inusual, lagrimeo, goteonasal, escalofr??os, dolor de est??jayy, diarrea, bostezos, roman musculares, irritabilidad, agitaci??n, ansiedad, dificultad para dormir o pensamientos suicidas. Informe a leal m??dico y a leal farmac??utico si alguna vez vanegas tenido meek reacci??n al??rgica a un medicamento. No use el medicamento m??s veces de lo indicado. Leona medicamento puede causar mareos o desmayo, sobre todo despu??s de hacer ejercicio o en clima c??lido. Tenga cuidado cuando se pare o se siente con rapidez. Si es posible, evite el uso con marihuana u otros medicamentos que puedan causar mareos o somnolencia. Entre estos se incluyen productos para tratar alergias o resfr??os, relajantes musculares, medicamentos para ayudar a dormir y medicamentos para aliviar el dolor. Leona medicamento puede afectar leal capacidad de mantenerse alerta o de reaccionar con rapidez. No maneje ni opere m??quinas hasta que sepa qu?? efecto le provocar?? leona medicamento. No estrada nada que contenga alcohol mientras use leona medicamento. Leona medicamento pasa a la leche materna. Consulte a leal m??dico antes de amamantar. Leona medicamento puede causar da??os a un beb?? en el ??tero. Si queda embarazada mientras usa estemedicamento, av??danelle a leal m??dico de inmediato. El m??dico puede cambiar el medicamento por otro diferente. Los pacientes con dificultades de respiraci??n deben usar leona medicamento con precauci??n. Llame a leal m??dico inmediatamente si observa que la respiraci??n es lenta o superficial. No comparta leona medicamento con otras personas a quienes no se les recet??. Algunos pacientes presentan efectos secundarios graves con loena medicamento. P??spenser a leal farmac??utico que le muestre la informaci??n de la Administraci??n de Alimentos y Medicamentos (FDA) y que laanalice con usted. ?? Efectos Secundarios La siguiente es meek lista de algunos efectos secundarios comunes de leona medicamento. Hable con el m??dico para saber qu?? debe hacer en nik de tener estos u otros efectos secundarios. ??? estre??imiento ??? mareos o aturdimiento ??? mareo ??? n??useas y v??mitos Llame al m??dico u obtenga atenci??n m??dica de inmediato si nota cualquiera de estos efectos secundarios m??s graves: ??? p??rdida de apetito ??? reducci??n del nivel de conciencia o de las reacciones ??? interrupci??n de la respiraci??n rochelle el ev??o ??? respiraci??n r??pida e irregular ??? confusi??n ??? desmayo ??? alucinaciones (pensamientos extra??os, isabell u o??r cosas que no son reales) ??? cambios de esta do de ??leia ??? convulsiones ??? dolor intenso del est??jayy o las v??as digestivas ??? cansancio o debilidad, extra??o o sin causa aparente ??? dificultad o molestia al orinar ??? p??rdida de peso Algunas personas podr??an tener reacciones al??rgicas a leona medicamento. Entre los s??ntomas pueden incluirse: dificultad para respirar, erupci??n en la piel, comez??n, hinchaz??n o mareos intensos.Si nota algunos de estos s??ntomas, busque asistencia m??dica r??pidamente. ?? Extra Hable con leal m??dico, enfermero o farmac??utico si tiene alguna pregunta acerca de leona medicamento. ?? [email or web address] NOTA IMPORTANTE: En leona documento hay meek explicaci??n breve sobre c??mo usar el medicamento, perono incluye todo lo que hay que saber acerca del medicamento. Leal m??dico o leal farmac??utico podr??a suministrarle otros documentos acerca de leal medicamento. Comun??quese con ellos si tiene alguna pregunta. Siga siempre el consejos. Meek descripci??n m??s completa de leona medicamento est?? disponibleen ingl??s. Escanee leona c??digo en leal tel??fono inteligente o en leal tableta, o use la direcci??n web que aparece a continuaci??n. Tambi??n puede pedirle a leal farmac??utico meek copia impresa. Si tiene alguna pregunta, h??gasela a leal farmac??utico. La exhibici??n y el uso de esta informaci??n sobre f??rmacos est?? sujeta a los T??rminos de Uso. Copyright(c) 2021 [employer] ?? 4039-7605 [employer]. All rights reserved. This information is not intended as a substitute for professional medical care. Always follow your healthcare professional's instructions. ?? US Retroperitoneum * [facility] , CIS S: TRANSCRIBE Lenora Hinds MD: VERIFY Event Display: Result: Authored Date: US Retroperitoneum Comp Reason: Other:; Flank pain; Clinical Question(s): Renal Obstruction; Order Comment: US Retroperitoneum Complete Prep COMPARISON: 06/20/2021 FINDINGS: Right kidney: 10.3 cm in length. No hydronephrosis. Normal parenchymal thickness and echotexture. 2tiny echogenic foci measuring approximately 2 mm each noted in the lower pole of the right kidney with color to ankle artifact but no definite shadowing on grayscale imaging, could possibly representnonobstructive calculi versus vascular calcifications. No suspicious mass. Left kidney: 9.4 cm in length. No hydronephrosis. Normal parenchymal thickness and echotexture. No stones. No suspicious mass. Urinary bladder: Normal morphology. No stone, mass, wall thickening or debris. Bilateral ureteral jets are identified on color Doppler imaging suggesting ureterovesicular junction patency. IMPRESSION: No hydronephrosis. 2 adjacent tiny nonshadowing bright reflectors in the lower pole of the right kidney (one of which was also seen on the prior study) may represent nonobstructive calculi versus vascular calcifications. Left kidney is unremarkable. WSN: [id number] Ordering Physician: Da Bergman Dictated By: Lenora Hinds MD Dictated Date/Time: 01/12/22 6:09 pm Reviewed By: Lenora Hinds MD Signed By: Lenora Hinds MD Signed Date/Time: 01/12/22 6:09 pm Transcribed By: GIA Transcribed Date/Time: 01/12/22 6:[address] Abdomen and Pelvis WO contrast * [facility] , CIS S: TRANSCRIBE Lenora Hinds MD: VERIFY Event Display: Result: Authored Date: [id number] CT Abdomen and Pelvis W/O Contrast Reason: Right-sided flank pain. History of kidney stones. TECHNIQUE: Spiral CT through the abdomen and pelvis without IV contrast formatted in 3 planes. Thisstudy was performed without oral contrast. Weight- based protocol using automatic tube modulation was used to optimize exposure parameters. CTDIvol Body: 5.90 mGy, DLP Body: 286 mGy*cm. COMPARISON: 12/22/2018 FINDINGS: Slp View Findings, Lines and Tubes: None. Visualized Chest: Lung bases are clear. No pleural effusion. Diaphragm: Normal. Liver: Visualized portion is unremarkable. Gallbladder: Absent consistent with prior cholecystectomy. Bile ducts: No biliary ductal dilation. Spleen: Normal. Pancreas: Normal. Adrenal glands: Normal. Kidneys and ureters: No hydronephrosis. Multiple punctate nonobstructive calculi noted in both kidneys, measuring 1 to 3 mm in size. No evidence of ureteric calculi. Bladder: Under distended and grossly unremarkable. No evidence of intraluminal calculi. Reproductive organs: Uterus is grossly unremarkable. There is a 2.8 cm dominant follicle in the right ovary. Stomach, small bowel, and large bowel: Stomach is moderately distended with food debris and grosslyunremarkable. No small bowel obstruction. Ogha-ux-nyrcozcj fecal retention seen throughout the colon. No inflammatory changes in the bowel. Appendix: Surgical clips noted at the base of the cecum, suggestive of prior appendectomy. Peritoneum and retroperitoneum: No ascites or pneumoperitoneum. No omental or mesenteric lesions. Lymph nodes: No enlarged lymph nodes. Blood vessels: Normal. No aneurysm. Abdominal and pelvic wall: Unremarkable. Bones: No acute abnormality. IMPRESSION: Bilateral nonobstructive nephrolithiasis. The overall stone burden has decreased as compared to theprior CT from 2019. No hydronephrosis or ureterolithiasis. No CT evidence of acute intra-abdominal or pelvic abnormality. WSN: [id number] Ordering Physician: Aden Sierra Dictated By: Lenora Hinds MD Dictated Date/Time: 01/12/22 8:04 pm Reviewed By: Lenora Hinds MD Signed By: Lenora Hinds MD Signed Date/Time: 01/12/22 8:04 pm Transcribed By: GIA Transcribed Date/Time: 01/12/22 7:56 pm Patient Care team information Care Team Personnel Name: Jay Aldridge Position: [facility] Outreach Member Role: PCP Address: Address: [address] [place] [address]- Name: Jay Gotti Position: [facility] Outreach Member Role: Lifetime Consulting Physician Address: Address: [address] [place] [address]- Name: Juliet Schumacher RN Position: [facility] RN Member Role: Primary Care Nurse Name: Cynthia Narayanan RN Position: [facility] RN Member Role: Primary Care Nurse Name: Verena CHAPMAN Attending Position: [facility] ED Medicine MD Name: Rebeca Horowitz Position: [facility] ED TA [facility] Member Role: Patient Care Provider Name: Da Conde Position: [facility] Associate Professional Member Role: ED Physician Combine Mechanic Address: Address: [address] [place] [address] Name: Blanca Yates RN Position: [facility] ED RN W/OE and Tasks Member Role: Patient Care Provider Care Team Related Persons Name: CODI CASILLASIEL Address: [address] Address: home [address] [place] [address] [place] Name: ELISSA CASILLAS Address: home [address] [place] [address] Name: GEORGIANA SPANN Address: home [address] [facility] [address] [place] [address] Name: STEVE CALLES Address: home [address] [place] [address] Name: PAVAN CALLES Address: home [address] [facility] [place] [address] Name: PAVAN CALLES Address: home [address] [place] [address]
--- OUTSIDE RECORDS SUMMARY | 2023-01-29 14:30 | XMS_ITS | Continuity of Care Document ---
Author Name Unknown Organization [facility] al Address [address] [place] [address]- Care Team Providers Care Expressive Music Therapist Name Role Phone Jay Aldridge Primary Care Physician Encounter [facility] Date(s): 05/19/22 - 05/19/[address] [address]- Discharge Disposition: A-D/C Home Attending Physician: Shiv [...] 04/30/22 14:00:00 EST, Route to Pharmacy Electronically, [facility], Partial fill upon patient request, 156, c... Start Date: 04/30/22 Status: Ordered PEG-3350 with Electrolytes (Eqv-NuLYTELY) oral powder for reconstitution See Instructions, as directed, # 1 each, 0 Refills, Maintenance, 05/06/22 10:51:00 EST, [id number], ok to sub for any gallon prep, [...] tablet,0 Refills, Maintenance, 04/30/22 14:00:00 EST, Tablet, [facility], Partial fill upon patient request, 156, cm, 04/30/22 6:51:00 EST, Mari. Start Date: 04/30/22 Status: Ordered Problem List Condition Confirmation Course Effective Dates Status H ealth Status Informant Anxiety Confirmed Active H/O Chronic pelvic pain in female Confirmed Active H/O GDM Confirmed 2014 Active History of delivery Confirmed 2014 Active Nephrolithiasis Confirmed Active Uses Bhutanese as primary spoken language Confirmed Active Obese class I Confirmed Active H/O Renal lithiasis Confirmed 12/18/11 Active Vital Signs Most recent to oldest [Reference Range]: 1 2 3 Height 155 cm (05/19/22 11:27 AM) Oxygen Saturation [94-100 %] 99 % (05/19/22 12:22 PM) 99 % (05/19/22 12:17 PM) 100 % (05/19/22 12:12 PM) Pulse Rate [55-90 bpm] 76 bpm (05/19/22 11:27 AM) Blood Pressure [90-138/55-84 mm Hg] 118/79mm Hg (05/19/22 12:22 PM) 108/66mm Hg (05/19/22 12:17 PM) 111/75mm Hg (05/19/22 12:12 PM) Respiratory Rate [16-30 br/min] 15 br/min *L* (05/19/22 12:22 PM) 19 br/min (05/19/22 12:17 PM) 19 br/min (05/19/22 12:12 PM) Temperature [96.8-100.4 DegF] 98 DegF (05/19/22 11:27 AM) Mode of Delivery (Oxygen) Room air (05/19/22 12:22 PM) Room air (05/19/22 12:17 PM) Room air (05/19/22 12:12 PM) Blood pressure sites Arm, left (05/19/22 11:27 AM) Temperature Route Temporal (05/19/22 11:27 AM) Dry Weight 82.4 kg (05/19/22 11:27 AM) Dry Weight Obtained Via Standing scale (05/19/22 11:27 AM) Social History Social History Type Response Smoking Status Never smoker entered on: 01/02/14 Sex Female Patient Care team information Care Team Personnel Name: Jay Aldridge Position: [facility] Outreach Member Role: PCP Address: Address: [address] [place] [phone]- Name: Jay Gotti Position: S Outreach Member Role: Lifetime Consulting Physician Address: Address: [address] [place] [address]- Name: Juliet Schumacher RN Position: S RN Member Role: Primary Care Nurse Name: Cynthia Narayanan RN Position: S RN Member Role: Primary Care Nurse Care Team Related Persons Name: RONI CASILLAS Address: [address] Address: home [address] [place] [address] [place] Name: ELISSA CASILLAS Address: home [address] [place] [address] Name: GEORGIANA SPANN Address: home [address] [facility] [address] [place] [address] Name: STEVE CALLES Address: home [address] [place] [address] Name: PAVAN CALLES Address: home [address] [place] [address] Name: PAVAN CALLES Address: home [address] [facility] [address] [place] [address]
--- OUTSIDE RECORDS SUMMARY | 2023-01-29 14:30 | XMS_ITS | Continuity of Care Document ---
Author Name Unknown Organization [facility] Address [address] [place] [address]- Care Team Providers Care Wool Grader Name Role Phone Jay Aldridge Primary Care Physician [phone] Encounter [facility] Date(s): 12/04/22 - 12/04/[address] [address]- Discharge Disposition: A-D/C Home Attending Physician: Nabil oLya MD Admitting Physician: Nabil Loya MD Referring Physician: Nabil Loya MD Allergies, Adverse Reactions, Alerts Substance Reaction Severity Status Macrobid Active Immunizations Given and Recorded Vaccine Date Status Refusal Reason tetanus/diphtheria/pertussis, acel(Tdap) 11/19/18 Given tetanus/diphtheria/pertussis, acel(Tdap) 03/29/14 Given influenza virus vaccine, inactivated 11/19/18 Give n influenza virus vaccine, inactivated 12/06/13 Give n influenza virus vaccine, inactivated 12/17/11 Give n Medications Golytely - oral powder for reconstitution 240 mL, By Mouth, Every 10 minutes, # 1 each, 0 Refills, Maintenance, 11/07/22 15:08:00 EDT, REC Powder, [id number], Partial fill upon patient request if the prescription is for a schedule II opioid drug., 240 mL By Mouth Every 10 min... Start Date: 11/07/22 Status: Ordered meloxicam 7.5 mg oral tablet 1 tablet = 7.5 mg, By Mouth, Daily, # 30 tablet, 0 Refills, Maintenance, 12/04/22 6:37:00 EDT, Tablet, Partial fill upon patient request if the prescription is for a schedule II opioid drug. Start Date: 12/04/22 Status: Ordered PEG-3350 with Electrolytes (Eqv-NuLYTELY) oral powder for reconstitution See Instructions, as directed, # 1 each, 0 Refills, Maintenance, 05/06/22 10:51:00 EST, [facility] #[id number], ok to sub for any gallon prep, as directed, 156, cm, 05/06/22 10:16:00 EST, Height, 80, kg, 04/30/22 6:51:00 EST, Dry Weight Start Date: 05/06/22 Status: Ordered traMADol 50 mg oral tablet 1 tablet = 50 mg, By Mouth, Every 4 hours, PRN for pain, # 60 tablet, 0 Refills, Maintenance, 12/04/22 6:38:00 EDT, Tablet, Partial fill upon patient request if the prescription is for a schedule II opioid drug. Start Date: 12/04/22 Status: Ordered Tylenol Extra Strength 500 mg oral tablet 2 tablet = 1,000 mg, By Mouth, Every 6 hours, PRN for pain, not to exceed 4000 mg/day, # 50 tablet,0 Refills, Maintenance, 04/30/22 14:00:00 EST, Tablet, [facility], Partial fill upon patient request, 156, cm, 04/30/22 6:51:00 EST, Heig... Start Date: 04/30/22 Status: Ordered Problem List Condition Confirmation Course Effective Dates Status H ealth Status Informant Anxiety Confirmed Active H/O Chronic pelvic pain in female Confirmed Active H/O GDM Confirmed 2014 Active History of delivery Confirmed 2014 Active Nephrolithiasis Confirmed Active Uses Yakut as primary spoken language Confirmed Active Obese class I Confirmed Active H/O Renal lithiasis Confirmed 12/18/11 Active Vital Signs Most recent to oldest [Reference Range]: 1 2 3 Height 154 cm (12/04/22 6:41 AM) Oxygen Saturation [94-100 %] 100 % (12/04/22 9:00 AM) 100 % (12/04/22 8:55 AM) 99 % (12/04/22 8:43 AM) Pulse Rate [55-90 bpm] 83 bpm (12/04/22 6:41 AM) Blood Pressure [90-138/55-84 mm Hg] 106/75mm Hg (12/04/22 9:00 AM) 98/81mm Hg (12/04/22 8:55 AM) 100/65mm Hg (12/04/22 8:43 AM) Respiratory Rate [16-30 br/min] 12 br/min *L* (12/04/22 9:00 AM) 12 br/min *L* (12/04/22 8:55 AM) 14 br/min *L* (12/04/22 8:43 AM) Temperature [96.8-100.4 DegF] 97.6 DegF (12/04/22 6:41 AM) Mode of Delivery (Oxygen) Room air (12/04/22 8:23 AM) Room air (12/04/22 6:41 AM) Temperature Route Temporal (12/04/22 6:41 AM) Dry Weight 80.8 kg (12/04/22 6:41 AM) Dry Weight Obtained Via Standing scale (12/04/22 6:41 AM) Social History Social History Type Response Smoking Status Never smoker entered on: 01/02/14 Sex Patient Care team information Care Team Personnel Name: Jay Aldridge Position: [facility] Outreach Member Role: PCP Address: Address: [address] [place] [id number]- [place] Name: Jay Gotti Position: S Outreach Member Role: Lifetime Consulting Physician Address: Address: [address] [place] [address]- Name: Juliet Schumacher RN Position: S RN Member Role: Primary Care Nurse Name: Cynthia Narayanan RN Position: S RN Member Role: Primary Care Nurse Care Team Related Persons Name: RONI CASILLAS Address: [address] Address: home [address] [place] [address] [place] Name: ELISSA CASILLAS Address: home [address] [place] [address] Name: GEORGIANA SPANN Address: home [address] [facility] [address] [facility] [address] [place] [address] Name: STEVE CALLES Address: home [address] [place] [address] Name: PAVAN CALLES Address: home [address] [place] [address] Name: PAVAN CALLES Address: home [address] [facility] [address] [place] [address]
--- OUTSIDE RECORDS SUMMARY | 2023-01-29 14:30 | XMS_ITS | Continuity of Care Document ---
Author Name Unknown Organization [facility] Address [address] [place] [address]- Care Team Providers Care Director Of Family Service Center Name Role Phone Jay Aldridge Primary Care Physician Encounter [facility] Date(s): 05/14/20 - 05/21/20 [facility] [address] [place] [address]- Encounter Diagnosis Left corneal abrasion(Discharge Diagnosis) - 05/14/20 Attending Physician: Bladimir Martins MD Referring Physician: Jay Aldridge Allergies, Adverse Reactions, Alerts Substance Reaction Severity [...] 11/11/18 14:30:44 EDT, Route to Pharmacy Electronically, [id number], [facility]113 Start Date: 11/11/18 Status: Ordered Dilaudid [...] Maintenance, :06:25 EDT, Route to Pharmacy Electronically, [id number], [id number] Start Date: 12/03/18 Status: Ordered ibuprofen 600 mg oral tablet 600 mg, 1, tablet, By Mouth, Every 6 hours, # 50 tablet, Refills 0, Tot. Refills 0, Maintenance, 01/18/19 6:54:06 EST, Route to Pharmacy Electronically, [id number], [id number] Start Date: 01/18/19 Status: Ordered oxyCODONE 5 [...] 11/11/18 14:30:48 EDT, Route to Pharmacy Electronically, [id number], [facility]/pharmacy #[id number] Tablet Start Date: 11/11/18 Status: [...] language(Confirmed) Active H/O Renal lithiasis(Confirmed) 12/18/11 Active Diagnosis Diagnosis Type Effective Dates Health Status Cl inical Service Informant Left corneal abrasion Discharge Diagnosis 05/14/20 Vital Signs Most recent to oldest [Reference Range]: 1 Height 155 cm (05/14/20 5:22 PM) Weight 81.2 kg (05/14/20 5:22 PM) Oxygen Saturation [94-100 %] 100 % (05/14/20 5:22 PM) Pulse Rate [55-90 bpm] 64 bpm (05/14/20 5:22 PM) Body Mass Index [18.5-24.99] 33.8 *>HHI* (05/14/20 5:22 PM) Blood Pressure [90-138/55-84 mm Hg] 114/ 60mm Hg (05/14/20 5:22 PM) Respiratory Rate [16-30 br/min] 17 br/mi n (05/14/20 5:22 PM) Temperature [96.8-100.4 DegF] 97.3 DegF (05/14/20 5:22 PM) Mode of Delivery (Oxygen) Room air (05/14/20 5:22 PM) Blood pressure sites Arm, right (05/14/20 5:22 PM) Temperature Route Temporal (05/14/20 5:22 PM) Dry Weight 81.2 kg (05/14/20 5:22 PM) Weight Obtained Via Standing scale (05/14/20 5:22 PM) Dry Weight Obtained Via Standing scale (05/14/20 5:22 PM) Social History Social History Type Response Smoking Status Never smoker entered on: 01/02/14 Sex Female
--- OUTSIDE RECORDS SUMMARY | 2023-01-29 14:30 | XMS_ITS | Continuity of Care Document ---
Author Name Unknown Organization [facility] Address [address] [place] [address]- Care Team Providers Care Receiving Team Member Name Role Phone Coco PACHECO, Mikie Mike Primary Care Physician Encounter [facility] Date(s): 11/19/18 - 02/13/[address] [address]- [facility] Attending Physician: Not on Staff, [...] 11/11/18 14:30:44 EDT, Route to Pharmacy Electronically, [id number], [facility]/pharmacy #[id number] Start Date: 11/11/18 Status: Ordered Dilaudid 2 mg oral tablet 1 tablet = 2 mg, By Mouth, Every 4 hours, PRN as needed for pain, # 35 tablet, 0 Refills, Maintenance, 01/07/19 13:53:09 EST, Tablet, Partial fill upon patient request Start Date: 01/07/19 Status: Ordered Dilaudid 2 mg oral tablet 1 tablet = 2 mg, By Mouth, Every 4 hours, PRN Pain , Severe, # 24 tablet, 0 Refills, Acute 190:00:00 EST, 01/18/19 6:53:33 EST, Tablet, Partial fill upon patient request Start Date: 01/18/19 Stop Date: 02/17/19 Status: Ordered docusate-senna 50 mg-187 mg oral [...] Maintenance, :06:25 EDT, Route to Pharmacy Electronically, [id number], [id number] Start Date: 12/03/18 Status: Ordered ibuprofen 600 mg oral tablet 600 mg, 1, tablet, By Mouth, Every 6 hours, # 50 tablet, Refills 0, Tot. 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
--- OUTSIDE RECORDS SUMMARY | 2023-01-29 14:30 | XMS_ITS | Continuity of Care Document ---
Author Name Unknown Organization [facility] Address [address] [place] [address]- Care Team Providers Care Motor Coach Supervisor Name Role Phone Jay Aldridge Primary Care Physician Encounter [facility] Date(s): 12/08/22 - 12/09/[address] [address]- Discharge Disposition: A-D/C Home Attending Physician: Keo Simental MD Admitting Physician: Keo Simental MD Referring Physician: Not on Staff, Referring MD Allergies, Adverse Reactions, Alerts Substance Reaction Severity Status Macrobid Active Immunizations Given and Recorded Vaccine Date Status Refusal Reason tetanus/diphtheria/pertussis, acel(Tdap) 11/19/18 Given tetanus/diphtheria/pertussis, acel(Tdap) 03/29/14 Given influenza virus vaccine, inactivated 11/19/18 Give n influenza virus vaccine, inactivated 12/06/13 Give n influenza virus vaccine, inactivated 12/17/11 Give n Medications cyclobenzaprine 5 mg oral tablet 1 tablet = 5 mg, By Mouth, 3 times a day, for 7 days, # 21 tablet, 0 Refills, Acute 12/16/22 0:51:00 EDT, 12/09/22 0:51:00 EDT, Tablet, [facility][id number], Partial fill upon patient request if the prescription is for a schedule II opioid drug... Start Date: 12/09/22 Stop Date: 12/16/22 Status: Ordered MorPHINE Inj 4 mg, Injection, IV Push Slowly, Once, STAT, 12/08/22 22:07:00 EDT, Stop date 12/08/22 22:07:00 EDT Start Date: 12/08/22 Stop Date: 12/08/22 Status: Completed ondansetron 4 mg oral tablet 1 tablet = 4 mg, By Mouth, Every 8 hours, PRN Nausea & Vomiting, # 10 tablet, 0 Refills, Acute 12/14/22 0:52:00 EDT, 12/09/22 0:52:00 EDT, Tablet, [facility] #[id number], Partial fill upon patient request if the prescription is for a schedule II... Start Date: 12/09/22 Stop Date: 12/14/22 Status: Ordered Problem List Condition Confirmation Course Effective Dates Status H ealth Status Informant Anxiety Confirmed Active H/O Chronic pelvic pain in female Confirmed Active H/O GDM Confirmed 2014 Active History of delivery Confirmed 2014 Active Nephrolithiasis Confirmed Active Uses Afghan as primary spoken language Confirmed Active Obese class I Confirmed Active H/O Renal lithiasis Confirmed 12/18/11 Active Results Orders for Microbiology Reports Name Date Urine Culture (URINE CULTURE) 12/08/22 Microbiology Reports TEST:Urine Culture STATUS:Unauthenticated BODY SITE: SOURCE:URINE COLLECTED DATE/TIME:12/08/22 7:40 PM Urine Culture SPECIMEN DESCRIPTION : URINE SPECIAL REQUESTS : NONE Reflexed from [id number] REPORT STATUS : PRELIMINARY REPORT Radiology Reports * Exam Date Time Procedure Performing Provider Status 12/08/22 11:[address] Abdomen and Pelvi s W/O Contrast Trina Cisse; Vinod (Verified) Notes: (CT Abdomen and Pelvis W/O Contrast) Reason For Exam: Pain RESULT: CT Abdomen and Pelvis W/O Contrast CT Abdomen and Pelvis W/O Contrast Hx of Present Illness: Pt reports left low back o pain since last night, unable to void since 9 am today - took tyl and Motrin at 4pm has not helped; Reason: Pain; Clinical Question(s): Calculus TECHNIQUE: Spiral CT through the abdomen and pelvis without IV contrast formatted in 3 planes. Thisstudy was performed without oral contrast. Weight- based protocol using automatic tube modulation was used to optimize exposure parameters. CTDIvol Body: 12.52 mGy, DLP Body: 559 mGy*cm. COMPARISON: 10/19/2022 FINDINGS: Slab Installer View Findings, Lines and Tubes: None. Visualized Chest: Lung bases are clear. No pleural effusion. The heart is normal in size. No pericardial effusion. Diaphragm: Normal. Liver: Normal. Gallbladder: Absent consistent with prior cholecystectomy. Bile ducts: No biliary ductal dilation. Spleen: Normal. Pancreas: Normal. Adrenal glands: Normal. Kidneys and ureters: No hydronephrosis, obstructing, or noncontrast evidence of suspicious masses. Bilateral nonobstructing renal calculi. On obstructing stones, for example 3 x 4 mm in the anterior midpole of the left kidney and up to 3 mm in the lower pole of the left kidney. There is a nonobstructing 2 mm calculus in the lower pole of the right kidney. Overall stone burden is similar to 10/19/2022. Bladder: Mild thickening versus nondistention. No regional stranding.. Reproductive organs: Unremarkable. Stomach, small bowel, and large bowel: No bowel obstruction. Appendix: Not seen, but no evidence of appendicitis. Likely previous appendectomy. Peritoneum and retroperitoneum: No ascites or pneumoperitoneum. No omental or mesenteric lesions. Lymph nodes: No enlarged lymph nodes. Blood vessels: Normal. No aneurysm. Abdominal and pelvic wall: Unremarkable. Bones: No acute abnormality. IMPRESSION: Mild diffuse bladder wall thickening. This can be exaggerated by nondistention or seen with underlying cystitis. Suggest correlation with urinalysis. Bilateral nonobstructing renal calculi. No obstructing calculi or hydroureteronephrosis. This report is concordant with the preliminary vRAD report. WSN: [id number] Ordering Physician: Keo Simental Dictated By: Mabel North MD Dictated Date/Time: 12/09/22 8:29 am Reviewed By: Mabel North MD Signed By: Mabel North MD Signed Date/Time: 12/09/22 8:29 am Transcribed By: GIA Transcribed Date/Time: 12/09/22 8:08 am Vital Signs Most recent to oldest [Reference Range]: 1 2 3 Height 155 cm (12/09/22 1:05 AM) 155 cm (12/08/22 10:58 PM) 155 cm (12/08/22 7:49 PM) Weight 82.0 kg (12/09/22 1:05 AM) 82.0 kg (12/08/22 10:58 PM) 82.0 kg (12/08/22 7:49 PM) Oxygen Saturation [94-100 %] 100 % (12/09/22 1:05 AM) 99 % (12/08/22 10:58 PM) 98 % (12/08/22 7:49 PM) Pulse Rate [55-90 bpm] 78 bpm (12/09/22 1:05 AM) 79 bpm (12/08/22 10:58 PM) 80 bpm (12/08/22 7:49 PM) Body Mass Index [18.5-24.99 kg/m2] 34.13 kg/m2 *>HHI* (12/08/22 10:58 PM) 34.13 kg/m2 *>HHI* (12/08/22 7:49 PM) Blood Pressure [90-138/55-84 mm Hg] 121/77mm Hg (12/09/22 1:05 AM) 117/67mm Hg (12/08/22 10:58 PM) 135/79mm Hg (12/08/22 7:49 PM) Respiratory Rate [16-30 br/min] 16 br/min (12/09/22 1:05 AM) 16 br/min (12/08/22 11:10 PM) 18 br/min (12/08/22 10:58 PM) Temperature [96.8-100.4 DegF] 97.9 DegF (12/08/22 10:58 PM) 97.9 DegF (12/08/22 7:49 PM) Liters per Minute 0 L/min (12/08/22 7:49 PM) Mode of Delivery (Oxygen) Room air (12/09/22 1:05 AM) Room air (12/08/22 10:58 PM) Room air (12/08/22 7:49 PM) Blood pressure sites Arm, right (12/08/22 10:58 PM) Arm, right (12/08/22 7:49 PM) Temperature Route Oral (12/08/22 10:58 PM) Oral (12/08/22 7:49 PM) Dry Weight 82.0 kg (12/09/22 1:05 AM) 82.0 kg (12/08/22 10:58 PM) 82.0 kg (12/08/22 7:49 PM) Weight Obtained Via Standing scale (12/08/22 7:49 PM) Dry Weight Obtained Via Standing scale (12/08/22 7:49 PM) Social History Social History Type Response Smoking Status Never smoker entered on: 01/02/14 Sex Note * Keo Simental MD: PERFORM Event Display: Patient Education Leaflets Authored Date: [id number] Flank Pain, Uncertain Cause ?? [id number] Dolor lateral de causa desconocida El lateral [...] [place] adolorida ramila 20??minutos cada 2??a 4??horas. [place] reducir?? la hinchaz??n y el dolor. Meek [...] abdomen ??? Mareos, debilidad o desmayo ??? [place] en la orina ??? Sensaci??n de ardor al orinar o necesidad de orinar con m??s frecuencia ??? Dolor en las piernas que empeora ??? Entumecimiento o debilidad en meek pierna ?? Last Reviewed Date: 2021 ?? [id number] [employer]. Todos los derechos reservados. Esta informaci??n no pretende sustituir la atenci??n m??dica profesional. S??lo pineda m??dico puede diagnosticar y tratar un problema de yovanny. ?? Patient Care team information Care Team Personnel Name: Jay Aldridge Position: [facility] Outreach Member Role: PCP Address: Address: [address] [place] [address]- Name: Jay Gotti Position: [facility] Outreach Member Role: Lifetime Consulting Physician Address: Address: [address] [place] [address] [address] [place] [address]- [place] Name: Juliet Schumacher RN Position: [facility] RN Member Role: Primary Care Nurse Name: Cynthia Narayanan RN Position: [facility] RN Member Role: Primary Care Nurse Name: Genoveva Franks Position: [facility] ED OA Member Role: Municipal Services Manager Name: Christ Anderson RN Position: [facility] ED RN W/OE and Tasks Member Role: Patient Care Provider Name: Keo Simental MD Position: [facility] ED Medicine MD Member Role: ED Attending Physician Address: Address: [address] [place] [address] [place] [address]- Care Team Related Persons Name: RONI CASILLAS Address: [address] Address: home [address] [place] [address] Name: ELISSA CASILLAS Address: home [address] [place] [address] Name: GEORGIANA SPANN Address: home [address] [facility] [place] [address] Name: STEVE CALLES Address: home [address] [place] [address] Name: PAVAN CALLES Address: home [address] [place] [address] Name: PAVAN CALLES Address: home [address] [place] [id number]
--- OUTSIDE RECORDS SUMMARY | 2023-01-29 14:31 | XMS_ITS | Continuity of Care Document ---
Author Name Unknown Organization [facility] Address [address] [place] [address]- Care Team Providers Care General Partner Name Role Phone Jay Aldridge Primary Care Physician Encounter [facility] Date(s): 05/06/22 - 06/05/22 [facility] [address] [place] [address]- Attending Physician: Yousif Cox Admitting Physician: Admtr, Ar8 Referring Physician: Admtr, Ar8 Allergies, Adverse Reactions, [...] 04/30/22 14:00:00 EST, Route to Pharmacy Electronically, [facility], Partial fill upon patient request, 156, c... Start Date: 04/30/22 Status: Ordered PEG-3350 with Electrolytes (Eqv-NuLYTELY) oral powder for reconstitution See Instructions, as directed, # 1 each, 0 Refills, Maintenance, 05/06/22 10:51:00 EST, [facility] #[id number], ok to sub for any gallon prep, [...] tablet,0 Refills, Maintenance, 04/30/22 14:00:00 EST, Tablet, [facility], Partial fill upon patient request, 156, cm, 04/30/22 6:51:00 EST, Heig... Start Date: 04/30/22 Status: Ordered Problem List Condition Confirmation Course Effective Dates Status H ealth Status Informant Anxiety Confirmed Active H/O Chronic pelvic pain in female Confirmed Active H/O GDM Confirmed 2014 Active History of delivery Confirmed 2014 Active Nephrolithiasis Confirmed Active Uses Slovenian as primary spoken language Confirmed Active Obese class I Confirmed Active H/O Renal lithiasis Confirmed 12/18/11 Active Social History Social History Type Response Smoking Status Never smoker entered on: 01/02/14 Sex Female Patient Care team information Care Team Personnel Name: Jay Aldridge Position: [facility] Outreach Member Role: PCP Address: Address: [address] [place] [address] Name: Jay Gotti Position: [facility] Outreach Member Role: Lifetime Consulting Physician Address: Address: [address] [place] [address]- Name: Juliet Schumacher RN Position: S RN Member Role: Primary Care Nurse Name: Cynthia Narayanan RN Position: S RN Member Role: Primary Care Nurse Care Team Related Persons Name: RONI CASILLAS Address: [address] Address: home [address] [place] [address] [place] Name: ELISSA CASILLAS Address: home [address] [place] [address] Name: GEORGIANA SPANN Address: home [address] [address] Name: STEVE CALLES Address: home [address] [place] [address] Name: PAVAN CALLES Address: home [address] [place] [address] Name: PAVAN CALLES Address: home [address] [place] [address]
--- OUTSIDE RECORDS SUMMARY | 2023-01-29 14:31 | XMS_ITS | Continuity of Care Document ---
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 Role Phone Jay Aldridge Primary Care Physician Encounter [facility] Date(s): 10/29/20 - 12/09/[address] [address] Attending Physician: Ernestina Meyer NP Admitting Physician: Ernestina Meyer NP Referring Physician: Ernestina Meyer NP Allergies, Adverse Reactions, Alerts Substance Reaction [...] 11/11/18 14:30:44 EDT, Route to Pharmacy Electronically, [id number], [facility]/pharmacy #[id number] Start Date: 11/11/18 Status: Ordered Dilaudid 2 [...] Maintenance, 199:06:25 EDT, Route to Pharmacy Electronically, [id number], [facility] #[id number] Start Date: 12/03/18 Status: Ordered ibuprofen 600 mg oral tablet 600 mg, 1, tablet, By Mouth, Every 6 hours, # 50 tablet, Refills 0, Tot. Refills 0, Maintenance, 01/18/19 6:54:06 EST, Route to Pharmacy Electronically, [id number], [facility] #[id number] Start Date: 01/18/19 Status: Ordered oxyCODONE 5 [...] 11/11/18 14:30:48 EDT, Route to Pharmacy Electronically, [id number], [facility]/pharmacy #1130 Tablet Start Date: [...] of delivery(Confirmed) 2014 Active Nephrolithiasis(Confirmed) Active Uses Maori as primary spok en language(Confirmed) Active H/O Renal lithiasis(Confirmed) 12/18/11 Active Social History Social History Type Response Smoking Status Never smoker entered on: 01/02/14 Sex Female
--- OUTSIDE RECORDS SUMMARY | 2023-01-29 14:31 | XMS_ITS | Patient Health Record ---
Author Name Unknown Organization [facility] Address [address] [place], [place] [id number] Support Name Relationship Address Phone BynumNacho Emergency Contact [address] Ignacia Garduno Guarantor Unknown [phone] REASON FOR REFERRAL No Information SOCIAL HISTORY Sex Assigned At : Social History Observation Description Sex Assigned At Unknown PLAN OF TREATMENT No Information Insurance Providers Payer Name Payer Address Payer Phone Subscriber Number Group Number Insured Name Patient Relationship to Insured Coverage Start Date Coverage End Date [facility] [address] [place] [address] [id number] Ignacia Lopez Self - patient is the insured [place] Medicaid Standard [address] [place] [address] [phone] [id number] Ignacia Lopez Self - patient is the insured
--- OUTSIDE RECORDS SUMMARY | 2023-01-29 14:31 | XMS_ITS | Continuity of Care Document ---
Author Name Unknown Organization [facility] Address [address] [place] [address]- Care Team Providers Care Premium Service Representative Name Role Phone Coco PACHECO, Mikie Mike Primary Care Physician [phone] Encounter [facility] Date(s): 11/19/18 - 03/06/[address] [address] [facility] Attending Physician: Not on Staff, Attending [...] 11/11/18 14:30:44 EDT, Route to Pharmacy Electronically, [id number], [facility]/pharmacy #[id number] Start Date: 11/11/18 Status: Ordered Dilaudid 2 [...] Maintenance, :06:25 EDT, Route to Pharmacy Electronically, [id number], [facility] #[id number] Start Date: 12/03/18 Status: Ordered ibuprofen 600 mg oral tablet 600 mg, 1, tablet, By Mouth, Every 6 hours, # 50 tablet, Refills 0, Tot. Refills 0, Maintenance, 01/18/19 6:54:06 EST, Route to Pharmacy Electronically, [id number], [facility] #[id number] Start Date: 01/18/19 Status: Ordered oxyCODONE 5 [...] 11/11/18 14:30:48 EDT, Route to Pharmacy Electronically, [id number], [facility]/pharmacy #1130 Tablet Start Date: 11/11/18 [...] of delivery(Confirmed) 2014 Active Nephrolithiasis(Confirmed) Active Uses Luxembourger as primary spok en language(Confirmed) Active H/O Renal lithiasis(Confirmed) 12/18/11 Active Social History Social History Type Response Smoking Status Never smoker entered on: 01/02/14 Sex Female
--- OUTSIDE RECORDS SUMMARY | 2023-01-29 14:31 | XMS_ITS | Continuity of Care Document ---
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 Role Phone Coco PACHECO, Mikie Mike Primary Care Physician Encounter [facility] Date(s): 12/09/18 - 02/24/[address] [address] [facility] Attending Physician: Haylie Joyce MD Referring Physician: Haylie Joyce MD Allergies, Adverse Reactions, Alerts Substance Reaction [...] 11/11/18 14:30:44 EDT, Route to Pharmacy Electronically, [id number], [facility]/pharmacy #[id number] Start Date: 11/11/18 Status: Ordered Dilaudid [...] Maintenance, :06:25 EDT, Route to Pharmacy Electronically, [id number], [id number] Start Date: 12/03/18 Status: Ordered ibuprofen 600 mg oral tablet 600 mg, 1, tablet, By Mouth, Every 6 hours, # 50 tablet, Refills 0, Tot. Refills 0, Maintenance, 01/18/19 6:54:06 EST, Route to Pharmacy Electronically, [id number], [facility] #[id number] Start Date: 01/18/19 Status: Ordered oxyCODONE 5 [...] 11/11/18 14:30:48 EDT, Route to Pharmacy Electronically, [id number], [facility]/pharmacy #1130 Tablet Start Date: 11/11/18 [...] of delivery(Confirmed) 2014 Active Nephrolithiasis(Confirmed) Active Uses Slovenian as primary spok en language(Confirmed) Active H/O Renal lithiasis(Confirmed) 12/18/11 Active Social History Social History Type Response Smoking Status Never smoker entered on: 01/02/14 Sex Female
--- OUTSIDE RECORDS SUMMARY | 2023-01-29 14:31 | XMS_ITS | Continuity of Care Document ---
Author Name Unknown Organization [facility] ter Address [address] [place] [address]- Care Team Providers Care Knitter Hand Name Role Phone Jay Aldridge Primary Care Physician Encounter [facility] Date(s): 12/07/21 - 12/07/[address] [address]- Encounter Diagnosis Right nephrolithiasis(Final) - 12/07/21 Discharge Disposition: A-D/C Home Attending Physician: Niki Roberto MD Admitting Physician: Niki Roberto MD Referring Physician: Not on Staff, Referring [...] 11/11/18 14:30:44 EDT, Route to Pharmacy Electronically, [id number], [facility]/pharmacy #[id number] Start Date: 11/11/18 Status: Ordered Dilaudid 2 [...] 06/20/21 15:00:00 EDT, Route to Pharmacy Electronically, [facility][id number], Partial fill upon patient request if the prescription is for a schedule II o... Start Date: 06/20/21 Status: Ordered Flomax 0.4 mg oral capsule 0.4 mg, 1, capsule, By Mouth, Daily, # 90 capsule, Refills 0, Tot. Refills 0, Maintenance, :06:25 EDT, Route to Pharmacy Electronically, [id number], [facility] #[id number] Start Date: 12/03/18 Status: Ordered ibuprofen 600 mg oral tablet 600 mg, 1, tablet, By Mouth, Every 6 hours, # 50 tablet, Refills 0, Tot. Refills 0, Maintenance, 01/18/19 6:54:06 EST, Route to Pharmacy Electronically, [id number], [facility] #[id number] Start Date: 01/18/19 Status: Ordered morphine 15 mg oral tablet, immediate release 1 tablet = 15 mg, By Mouth, Every 6 hours, PRN for pain, for 3 days, # 12 tablet, 0 Refills, Acute 12/10/21 16:40:00 EDT, 12/07/21 16:40:00 EDT, Tablet, [facility] #[id number], Partial fill uponpatient request if the prescription is for a schedu... Start Date: 12/07/21 Stop Date: 12/10/21 Status: Ordered MorPHINE Inj 4 mg, Injection, IV Push Slowly, Every 5 minutes for 3 doses/times, PRN for Pain , Moderate, and SBP greater than 100, Routine, 12/07/21 15:39:00 EDT, Stop date Limited # of times Start Date: 12/07/21 Stop Date: 12/08/21 Status: Discontinued ondansetron 4 mg oral tablet, disintegrating 1 tablet = 4 mg, By Mouth, Every 8 hours, PRN as needed for nausea/vomiting, # 12 tablet, 0 Refills, Maintenance, 06/20/21 15:00:00 EDT, DIS Tablet, [facility] #[id number], Partial fill upon patient request if the [...] 11/11/18 14:30:48 EDT, Route to Pharmacy Electronically, [id number], [facility]/pharmacy #1130 Tablet Start Date: 11/11/18 Status: Ordered Slow Fe (as elemental iron) 45 mg oral tablet, extended release 1 tablet = 45 mg, By Mouth, Every other day, # 30 tablet, 6 Refills, Maintenance, 07/09/18 9:37:35 EDT, ER Tablet Start Date: 07/09/18 Status: Ordered tamsulosin 0.4 mg oral capsule 0.4 mg, 1, capsule, By Mouth, Daily, # 30 capsule, Refills 0, Tot. Refills 0, Maintenance, 12/08/2215:40:00 EDT, Route to Pharmacy Electronically, [facility] #[id number], Partial fill upon patient request if the prescription is for a schedule II... Start Date: 12/07/21 Status: Ordered Tylenol 325 mg oral capsule [...] Date: 11/11/18 Status: Ordered Problem List Condition Confirmation Course [...] Range]: 1 2 3 Height 154 cm (12/07/21 4:20 PM) 154 cm (12/07/21 1:43 PM) Weight 80 kg (12/07/21 4:20 PM) 80 kg (12/07/21 1:43 PM) Oxygen Saturation [94-100 %] 100 % (12/07/21 4:20 PM) 100 % (12/07/21 2:54 PM) 100 % (12/07/21 1:43 PM) Pulse Rate [55-90 bpm] 70 bpm (12/07/21 4:20 PM) 84 bpm (12/07/21 2:54 PM) 92 bpm *H* (12/07/21 1:43 PM) Body Mass Index [18.5-24.99 kg/m2] 33.73 kg/m2 *>HHI* (12/07/21 4:20 PM) 33.73 kg/m2 *>HHI* (12/07/21 1:43 PM) Blood Pressure [90-138/55-84 mm Hg] 100/60mm Hg (12/07/21 4:20 PM) 132/86mm Hg (12/07/21 2:54 PM) 140/84mm Hg *H* (12/07/21 1:43 PM) Respiratory Rate [16-30 br/min] 16 br/min (12/07/21 4:38 PM) 20 br/min (12/07/21 4:20 PM) 16 br/min (12/07/21 3:44 PM) Temperature [96.8-100.4 DegF] 98.1 DegF (12/07/21 4:20 PM) 97.9 DegF (12/07/21 2:54 PM) 98 DegF (12/07/21 1:43 PM) Mode of Delivery (Oxygen) Room air (12/07/21 4:20 PM) Room air (12/07/21 2:54 PM) Room air (12/07/21 1:43 PM) Blood pressure sites Arm, left (12/07/21 4:20 PM) Arm, right (12/07/21 2:54 PM) Arm, right (12/07/21 1:43 PM) Temperature Route Oral (12/07/21 4:20 PM) Oral (12/07/21 2:54 PM) Oral (12/07/21 1:43 PM) Dry Weight 80 kg (12/07/21 4:20 PM) 80 kg (12/07/21 1:43 PM) Weight Obtained Via Patient/family state d (12/07/21 1:43 PM) Dry Weight Obtained Via Patient/family s tated (12/07/21 1:43 PM) Social History Social History Type Response Smoking Status Never smoker entered on: 01/02/14 Sex Female Patient Care team information Personnel Name: Jay Aldridge Address: Address: [address] [place] [address]
--- OUTSIDE RECORDS SUMMARY | 2023-01-29 14:31 | XMS_ITS | Continuity of Care Document ---
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 Name Role Phone Coco PACHECO, Mikie Mike Primary Care Physician Encounter [facility] [place] Date(s): 11/19/18 - 02/20/[address] [address]- [facility] Attending Physician: Not on Staff, Attending [...] 11/11/18 14:30:44 EDT, Route to Pharmacy Electronically, [id number], [facility]/pharmacy #[id number] Start Date: 11/11/18 Status: Ordered Dilaudid 2 [...] Maintenance, 199:06:25 EDT, Route to Pharmacy Electronically, [id number], [id number] Start Date: 12/03/18 Status: Ordered ibuprofen 600 mg oral tablet 600 mg, 1, tablet, By Mouth, Every 6 hours, # 50 tablet, Refills 0, Tot. Refills 0, Maintenance, 01/18/19 6:54:06 EST, Route to Pharmacy Electronically, [id number], [facility] #[id number] Start Date: 01/18/19 Status: Ordered oxyCODONE 5 [...] 11/11/18 14:30:48 EDT, Route to Pharmacy Electronically, [id number], [facility]/pharmacy #[id number] Tablet Start Date: 11/11/18 Status: [...] of delivery(Confirmed) 2014 Active Nephrolithiasis(Confirmed) Active Uses Faroese as primary spok en language(Confirmed) Active Polyhydramnios(Confirmed) Active H/O Renal lithiasis(Confirmed) 12/18/11 Active Request for sterilization(Confirmed) Active Social History Social History Type Response Smoking Status Never smoker entered on: 01/02/14 Sex Female
--- OUTSIDE RECORDS SUMMARY | 2023-01-29 14:31 | XMS_ITS | Continuity of Care Document ---
Author Name Unknown Organization [facility] ter Address [address] [place] [address]- Care Team Providers Care Transfer Knitter Name Role Phone Jay Aldridge Primary Care Physician En[place] [facility] [place] Date(s): 03/30/22 - 03/30/[address] [address]- Discharge Disposition: A-D/C Walkout Attending Physician: Not [...] EVERY DAY Start Date: 01/12/22 Status: Ordered traZODone 50 mg oral tablet TAKE 1 TABLET BY MOUTH EVERY NIGHT AT BEDTIME Start Date: 01/12/22 Status: Ordered Problem List Condition Confirmation Course Effective Dates Status H ealth Status Informant Anxiety Confirmed Active H/O Chronic pelvic pain in female Confirmed Active H/O GDM Confirmed 2014 Active History of delivery Confirmed 2014 Active Nephrolithiasis Confirmed Active Uses Puerto Rican as primary spoken language Confirmed Active Obese class I Confirmed Active H/O Renal lithiasis Confirmed 12/18/11 Active Vital Signs Most recent to oldest [Reference Range]: 1 Height 155 cm (03/30/22 12:48 AM) Weight 79.1 kg (03/30/22 12:48 AM) Oxygen Saturation [94-100 %] 100 % (03/30/22 12:48 AM) Pulse Rate [55-90 bpm] 76 bpm (03/30/22 12:48 AM) Body Mass Index [18.5-24.99 kg/m2] 32.92 kg/m2 *>HHI* (03/30/22 12:48 AM) Blood Pressure [90-138/55-84 mm Hg] 134/ 87mm Hg (03/30/22 12:48 AM) Respiratory Rate [16-30 br/min] 18 br/mi n (03/30/22 12:48 AM) Temperature [96.8-100.4 DegF] 97.9 DegF (03/30/22 12:48 AM) Mode of Delivery (Oxygen) Room air (03/30/22 12:48 AM) Blood pressure sites Arm, right (03/30/22 12:48 AM) Temperature Route Oral (03/30/22 12:48 AM) Dry Weight 79.1 kg (03/30/22 12:48 AM) Weight Obtained Via Standing scale (03/30/22 12:48 AM) Dry Weight Obtained Via Standing scale (03/30/22 12:48 AM) Social History Social History Type Response Smoking Status Never smoker entered on: 01/02/14 Sex Female Patient Care team information Care Team Personnel Name: Jay Aldridge Position: [facility] Outreach Member Role: PCP Address: Address: [address] [place] [address]- Name: Jay Gotti Position: S Outreach Member Role: Lifetime Consulting Physician Address: Address: [address] [place] [address]- Name: Juliet Schumacher RN Position: S RN Member Role: Primary Care Nurse Name: Cynthia Narayanan RN Position: S RN Member Role: Primary Care Nurse Care Team Related Persons Name: RONI CASILLAS Address: [address] Address: home [address] [place] [address] [place] Name: ELISSA CASILLAS Address: home [address] [place] [address] Name: GEORGIANA SPANN Address: home [address] [address] Name: STEVE CALLES Address: home [address] [place] [address] Name: PAVAN CALLES Address: home [address] [place] [address] Name: PAVAN CALLES Address: home [address] [place] [address]
--- OUTSIDE RECORDS SUMMARY | 2023-01-29 14:31 | XMS_ITS | Continuity of Care Document ---
Author Name Unknown Organization [facility] ter Address [address] [place] [address]- Care Team Providers Care Measurement Department Chief Clerk Name Role Phone Jay Aldridge Primary Care Physician [place] [facility] [place] - 04/30/[address] [address]- Encounter Diagnosis Kidney stone on left side(Final) - 04/30/22 Discharge Disposition: A-D/C Home Attending Physician: Dagoberto Estrada MD Admitting Physician: Dagoberto Estrada MD Referring Physician: Not on Staff, Referring [...] Start Date: 04/30/22 Status: Ordered MorPHINE Inj 4 mg, Injection, IV Push Slowly, Every 5 minutes for 3 doses/times, PRN for Pain , Moderate, and SBP greater than 100, Routine, 04/30/22 10:21:00 EST, Stop date Limited # of times Start Date: 04/30/22 Stop Date: 04/30/22 Status: Discontinued ondansetron 4 mg oral tablet, disintegrating 1 tablet = 4 mg, By Mouth, Every 8 hours, PRN as needed for nausea/vomiting, for 3 days, allow tablet to dissolve on tongue, # 10 tablet, 0 Refills, Acute 05/03/22 14:00:00 EST, 04/30/22 14:00:00 EST, DIS Tablet, [facility], Partial fill... Start Date: 04/30/22 Stop Date: 05/03/22 Status: Ordered oxyCODONE 5 mg oral tablet 5 mg, 1, tablet, By Mouth, Every 6 hours, PRN, for 2 days, # 3 tablet, Refills 0, Tot. Refills 0, Acute 05/02/22 14:58:00 EST, Pain , Severe, 04/30/22 14:58:00 EST, Route to Pharmacy Electronically, [facility], Partial fill upon patient... Start Date: 04/30/22 Stop Date: 05/02/22 Status: Ordered traZODone 50 mg oral tablet TAKE 1 TABLET BY MOUTH EVERY NIGHT AT BEDTIME Start Date: 01/12/22 Status: Ordered Tylenol Extra Strength 500 mg oral tablet 2 tablet = 1,000 mg, By Mouth, Every 6 hours, PRN for pain, not to exceed 4000 mg/day, # 50 tablet,0 Refills, Maintenance, 04/30/22 14:00:00 EST, Tablet, [facility], Partial fill upon patient request, 156, cm, 04/30/22 6:51:00 EST, [facility]... Start Date: 04/30/22 Status: Ordered Problem List Condition Confirmation Course Effective Dates Status H ealth Status Informant Anxiety Confirmed Active H/O Chronic pelvic pain in female Confirmed Active H/O GDM Confirmed 2014 Active History of delivery Confirmed 2014 Active Nephrolithiasis Confirmed Active Uses Bulgarian as primary spoken language Confirmed Active Obese class I Confirmed Active H/O Renal lithiasis Confirmed 12/18/11 Active Results Radiology Reports * Exam Date Time Procedure Performing Provider Status 04/30/22 12:[address] Abdomen and Pelvi s W/O Contrast Stehr , Yamile-Mariaa; Auth (Verified) Notes: (CT Abdomen and Pelvis W/O Contrast) Reason For Exam: Flank pain, kidney stone suspected;Other: RESULT: CT Abdomen and Pelvis W/O Contrast CT Abdomen and Pelvis W/O Contrast Hx of Present Illness: I have a kidney stone pt reports L flank pain radiating to LLQ since last night, +N V. Hx of kidney stones, last one in Dec 2021.; Reason: Other:; Flank pain, kidney stone suspected; Clinical Question(s): Calculus; Left Side flank; Order Comment: TECHNIQUE: Spiral CT through the abdomen and pelvis without IV contrast formatted in 3 planes. Thisstudy was performed oral contrast. Weight-based protocol using automatic tube modulation was used to optimize exposure parameters. CTDIvol Body: 6.70 mGy, DLP Body: 301 mGy*cm. COMPARISON: CT abdomen and pelvis without contrast 01/12/2022. FINDINGS: Grinder Hardboard View Findings, Lines and Tubes: None. Visualized Chest: Mild left base atelectasis. No pleural effusion. Diaphragm: Normal. Liver: Normal. Gallbladder: Post cholecystectomy. Bile ducts: No biliary ductal dilation. Spleen: Normal. Pancreas: Normal. Adrenal glands: Normal. Kidneys and ureters: Mild fullness of the left renal collecting system without overt hydronephrosis. No right hydronephrosis. Multiple punctate nonobstructive calculi in both kidneys measuring up to 3 mm. Bladder: Normal. Reproductive organs: Unremarkable. Stomach, small bowel, and large bowel: Normal. Appendix: Post postsurgical changes in the right lower quadrant, likely from prior appendectomy. Peritoneum and retroperitoneum: No ascites or pneumoperitoneum. No omental or mesenteric lesions. Lymph nodes: No enlarged lymph nodes. Blood vessels: Normal. No aneurysm. Abdominal and pelvic wall: Unremarkable. Bones: No acute abnormality. IMPRESSION: 1. Bilateral nonobstructing nephrolithiasis, not significantly changed since 01/12/2022. 2. Mild fullness of the left renal collecting system without overt hydronephrosis. WSN: [id number] Ordering Physician: Flo Fuentes Dictated By: Eugenia Carrero MD Dictated Date/Time: 04/30/22 1:13 pm Reviewed By: Eugenia Carrero MD Signed By: Eugenia Carrero MD Signed Date/Time: 04/30/22 1:13 pm Transcribed By: GIA Transcribed Date/Time: 04/30/22 12:58 pm Vital Signs Most recent to oldest [Reference Range]: 1 2 3 Height 156 cm (04/30/22 6:51 AM) 156 cm (04/30/22 6:49 AM) Weight 80 kg (04/30/22 6:51 AM) 80 kg (04/30/22 6:49 AM) Oxygen Saturation [94-100 %] 100 % (04/30/22 3:03 PM) 100 % (04/30/22 8:19 AM) 100 % (04/30/22 6:49 AM) Pulse Rate [55-90 bpm] 76 bpm (04/30/22 3:03 PM) 70 bpm (04/30/22 8:19 AM) 79 bpm (04/30/22 6:49 AM) Body Mass Index [18.5-24.99 kg/m2] 32.87 kg/m2 *>HHI* (04/30/22 6:49 AM) Blood Pressure [90-138/55-84 mm Hg] 126/85mm Hg (04/30/22 3:03 PM) 128/89mm Hg (04/30/22 8:19 AM) 128/88mm Hg (04/30/22 6:49 AM) Respiratory Rate [16-30 br/min] 18 br/min (04/30/22 3:03 PM) 18 br/min (04/30/22 12:00 PM) 18 br/min (04/30/22 10:03 AM) Temperature [96.8-100.4 DegF] 97.5 DegF (04/30/22 8:19 AM) 97.4 DegF (04/30/22 6:49 AM) Mode of Delivery (Oxygen) Room air (04/30/22 3:03 PM) Room air (04/30/22 8:19 AM) Room air (04/30/22 6:49 AM) Blood pressure sites Arm, right (04/30/22 3:03 PM) Arm, right (04/30/22 8:19 AM) Arm, left (04/30/22 6:49 AM) Temperature Route Oral (04/30/22 8:19 AM) Oral (04/30/22 6:49 AM) Dry Weight 80 kg (04/30/22 6:51 AM) 80 kg (04/30/22 6:49 AM) Weight Obtained Via Patient/family state d (04/30/22 6:49 AM) Dry Weight Obtained Via Patient/family s tated (04/30/22 6:49 AM) Social History Social History Type Response Smoking Status Never smoker entered on: 01/02/14 Sex Female Note * Flo Campbell: PERFORM, SIGN, VERIFY Event Display: Patient Education Handout Authored Date: [id number] * Flo Campbell: PERFORM Event Display: Patient Education Leaflets Authored Date: [id number] Kidney Stone, Passed ?? [id number] C??lculo renal, descendido Un c??lculo renal (nefrolitiasis) comienza con la formaci??n de gayla diminutos en el interior del ri?n, donde se produce la orina. La mayor??a de los c??lculos renales se agrandan hasta alcanzar un jeniffer??o de 03/09 a 03/05 de pulgada antes de salir del ri?n y desplazarse hacia la vejiga. El dolor crystal y las n??useas o v??mitos que tuvo se deben al paso del c??lculo por el ur??ter. El ur??ter es el conducto estrecho que une el ri?n con la vejiga.??Cuando el c??lculo llega a la vejiga,el dolor desaparece. El dolor puede volver mientras el c??lculo pasa a french??s de la vejiga y por fuera de la uretra.?? Hay 4??tipos de c??lculos renales. La mayor??a son c??lculos de calcio. Por lo general, son de oxalato de calcio, leslye algunos tambi??n son de fosfato de calcio. Los otros 3??tipos incluyen c??lculosde ??cido ??rico, c??lculos de estruvita (provenientes de meek infecci??n anterior), y yelena vez, c??lculos de cistina. Cuidados en el hogar Estas pautas lo ayudar??n a cuidarse en el hogar: ??? Yamilet mucho l??quido. Bourg aumenta el flujo deorina y reduce la probabilidad de que se formen nuevos c??lculos. Los adultos sanos (sin enfermedades card??acas, hep??alize o renales) que hayan tenido c??lculos renales deben beber 12??vasos de 8??onzas (237 cc) de l??quidos por d??a. La mayor parte debe ser agua. El objetivo es producir de 1,5 a2 cuartos de gal??n (aproximadamente de 1,5??l a 2??l) de orina miranda incolora cada 24??horas. ??? Amenos que le hayan recetado otro medicamento antinflamatorio no esteroide (MACIEJ), puede tarun ibuprofeno o naproxeno adem??s de los analg??sicos opioides que le haya recetado el proveedor de atenci??n m??dica para el dolor. Si tiene meek enfermedad hep??carmella o renal cr??maximino o si alguna vez tuvo meek??lcera estomacal o hemorragia gastrointestinal, consulte con pineda proveedor de atenci??n m??dica antes de tarun estos medicamentos. ??? Recogida del c??lculo: Si le dieron un colador, orine en un recipiente y luego vac??e la orina en el inodoro pas??ndola a french??s del colador. Siga haciendo esto rochelle 24??horas despu??s de que desaparezca el dolor. Si encuentra alg??n c??lculo en el colador, ll??velo a pineda proveedor de atenci??n m??dica para que lo analicen. Evaluar el c??lculo permite comprender por qu?? se form?? y c??mo disminuir el riesgo de que se formen m??s. Si no logra recoger nickie??n c??lculo, pineda proveedor de atenci??n m??dica podr??a tarun m??s tarde meek muestra de orina de 24??horas para determinar la causa del c??lculo. ?? Prevenci??n Cada a??o hay probabilidades de que se forme un c??lculo nuevo.??El riesgo es mayor si tiene antecedentes familiares de c??lculos renales o si tiene ciertas enfermedades cr??nicas, augustina presi??n arterial christian, obesidad o diabetes.??De todas formas, hay ciertos cambios en la dieta y el estilo de malia que puede hacer para reducir el riesgo de que se formen nuevos c??lculos. La mayor??a de los c??lculos renales son de calcio. Los siguientes consejos lo ayudar??n a prevenirla formaci??n de nuevos c??lculos de calcio.??Si no conoce el tipo de c??lculo que tiene, siga estos consejos hasta que se determine la causa de jodee. Cosas que pueden ayudar: ??? La medida preventiva m??s eficaz es beber mucho l??quido todos los d??as, donald augustina se describe arriba. ??? Ciertos alimentos augustina sonia, arroz, vanessa, cebada y frijolescontienen fitatos. Los fitatos pueden reducir el riesgo de que se formen c??lculos de cualquier tipo. ??? Aumente el consumo de frutas y verduras (sobre todo aquellas con alto contenido de potasio). ??? Consuma alimentos con alto contenido de citrato natural, augustina las frutas o los jugos de fruta (con bajo contenido de az??car). ??? El bajo nivel de calcio contribuye a la formaci??n de c??lculos renales de calcio. Consuma meek dieta normal de calcio y hable con pineda proveedor de atenci??n m??dica si est?? tomando suplementos de calcio. Disminuir el consumo de calcio podr??a ser perjudicial. Un nuevo estudio muestra que consumir alimentos ricos en calcio y oxalato combinados disminuye el riesgo de c??lculos. Bourg es porque comerlos juntos une los minerales en el est??jayy y los intestinos antes de que lleguen a los ri??ones. ??? Limite el consumo de ashley a 2??gramos (1??cucharadita) por d??a.El sodio adicional puede hacer que pierda m??s calcio en la orina y aumenta las probabilidades de que se forme un c??lculo. Reduzca pineda uso al cocinar y no a??ada ashley a los alimentos en la jarrell.??Los alimentos procesados y enlatados generalmente tienen monica ashley. ??? Coma menos alimentos con alto contenido de oxalato, augustina espinaca, ruibarbo, cacahuates o man??es, remolachas, casta??as de caj??, almendras, toronjas, chocolate, t?? y jugo de toronja. O dawit, c??malos acompa??ados de alimentos conmucho calcio. Estos alimentos incluyen l??cteos, vegetales de hoja harpreet, productos derivados de soja y alimentos con calcio agregado. ??? Disminuya el consumo de carne y de res de alimentos con elevado contenido de prote??marianela. Bourg disminuir?? pineda riesgo de que se formen c??lculos de ??cido ??rico.La carne de res y los alimentos con monica prote??na tienen cantidades elevadas de un compuesto llamado purina. Consumir alimentos con monica purina hace que el cuerpo fabrique m??s ??cido ??rico. ??? No agregue az??car (sacarosa) ni fructosa (endulzantes en muchos refrescos) a pineda dieta. ??? Si est??tomando vitamina C augustina suplemento, no tome m??s de 1000??mg por d??a. M??s de 1000??mg por d??a pueden hacer que el cuerpo fabrique m??s oxalato. ??? Un nutricionista o pineda proveedor de atenci??n m??dica puede darle ideas acerca de c??mo cambiar pineda dieta para prevenir m??s c??lculos renales. ?? Visitas de control Asista a los controles con pineda proveedor de atenci??n m??dica seg??n le hayan indicado. Aunque no consiga recoger el c??lculo, es posible analizar meek muestra de orina de 24??horas para determinar lo que lo caus??. Consulte con pineda proveedor de atenci??n m??dica. Si le hicieron radiograf??as, meek tomograf??a computarizada u otra prueba de diagn??stico, le informar??n de los nuevos hallazgos que puedan afectar la atenci??n m??dica que necesita. ?? Cu??ndo llamar al 911 Llame al 911 si tiene alguno de los siguientes s??ntomas: ??? Debilidad, mareos o desmayos ?? Cu??ndo debe buscar atenci??n m??dica Llame a pineda proveedor de atenci??n m??dica de inmediato si tiene cualquiera de los siguientes s??ntomas: ??? Dolor intenso que reaparece y no se sera con analg??sicos ??? V??mitos persistentes o incapacidad de retener l??quidos en el est??jayy ??? Fiebre de 100,4?F (38?C) o superior, o seg??n le indique pineda proveedor de atenci??n m??dica. ??? Orina con muchos co??gulos de jose ??? Orina turbia o maloliente ??? Incapacidad de expulsar orina rochelle 8??horas o aumento de la presi??n en lavejifl ?? Last Reviewed Date: 2019 ?? [id number] [employer]. Todos los derechos reservados. Esta informaci??n no pretende sustituir la atenci??n m??dica profesional. S??lo pineda m??dico puede diagnosticar y tratar un problema de yovanny. ?? CT Abdomen and Pelvis WO contrast * [facility] , CIS S: TRANSCRIBE Eugenia Carrero MD: VERIFY Event Display: Result: Authored Date: CT Abdomen and Pelvis W/O Contrast Hx of Present Illness: I have a kidney stone pt reports L flank pain radiating to LLQ since last night, +N V. Hx of kidney stones, last one in Dec 2021.; Reason: Other:; Flank pain, kidney stone suspected; Clinical Question(s): Calculus; Left Side flank; Order Comment: TECHNIQUE: Spiral CT through the abdomen and pelvis without IV contrast formatted in 3 planes. Thisstudy was performed oral contrast. Weight-based protocol using automatic tube modulation was used to optimize exposure parameters. CTDIvol Body: 6.70 mGy, DLP Body: 301 mGy*cm. COMPARISON: CT abdomen and pelvis without contrast 01/12/2022. FINDINGS: Grinder Hardboard View Findings, Lines and Tubes: None. Visualized Chest: Mild left base atelectasis. No pleural effusion. Diaphragm: Normal. Liver: Normal. Gallbladder: Post cholecystectomy. Bile ducts: No biliary ductal dilation. Spleen: Normal. Pancreas: Normal. Adrenal glands: Normal. Kidneys and ureters: Mild fullness of the left renal collecting system without overt hydronephrosis. No right hydronephrosis. Multiple punctate nonobstructive calculi in both kidneys measuring up to 3 mm. Bladder: Normal. Reproductive organs: Unremarkable. Stomach, small bowel, and large bowel: Normal. Appendix: Post postsurgical changes in the right lower quadrant, likely from prior appendectomy. Peritoneum and retroperitoneum: No ascites or pneumoperitoneum. No omental or mesenteric lesions. Lymph nodes: No enlarged lymph nodes. Blood vessels: Normal. No aneurysm. Abdominal and pelvic wall: Unremarkable. Bones: No acute abnormality. IMPRESSION: 1. Bilateral nonobstructing nephrolithiasis, not significantly changed since 01/12/2022. 2. Mild fullness of the left renal collecting system without overt hydronephrosis. WSN: [id number] Ordering Physician: Flo Fuentes Dictated By: Eugenia Carrero MD Dictated Date/Time: 04/30/22 1:13 pm Reviewed By: Eugenia Carrero MD Signed By: Eugenia Carrero MD Signed Date/Time: 04/30/22 1:13 pm Transcribed By: GIA Transcribed Date/Time: 04/30/22 12:58 pm Patient Care team information Care Team Personnel Name: Jay Aldridge Position: [facility] Outreach Member Role: PCP Address: Address: [address] [place] [address]- [place] Name: Jay Gotti Position: [facility] Outreach Member Role: Lifetime Consulting Physician Address: Address: [address] [facility] [address] [place] [address]- [place] Name: Juliet Schumacher RN Position: [facility] RN Member Role: Primary Care Nurse Name: Cynthia Narayanan RN Position: [facility] RN Member Role: Primary Care Nurse Name: Flo Campbell Position: [facility] Associate Professional Member Role: ED Physician Placer Miner Address: Address: [address] [place] [address]- [place] Name: Shana Phillips Position: [facility] ED TA [facility] Member Role: Project Engineering Manager Name: Nichole Church Position: [facility] ED TA [facility] Member Role: Patient Care Provider Name: Chloé Vo RN Position: [facility] ED RN W/OE and Tasks Member Role: Patient Care Provider Name: Gen Gates LPN Position: [facility] ED RN W/OE and Tasks Member Role: Patient Care Provider Name: Dagoberto Estrada MD Position: [facility] ED Medicine MD Member Role: Admitting Physician Address: Address: [address] [place] [address]- [place] Care Team Related Persons Name: RONI CASILLAS Address: [address] Address: home [address] [place] [address] [place] Name: ELISSA CASILLAS Address: home [address] [place] [address] Name: GEORGIANA SPANN Address: home [address] [place] [address] Name: STEVE CALLES Address: home [address] [place] [address] Name: PAVAN CALLES Address: home [address] [place] [address] Name: PAVAN CALLES Address: home [address] [place] [address]
--- OUTSIDE RECORDS SUMMARY | 2023-01-29 14:31 | XMS_ITS | Continuity of Care Document ---
Author Name Unknown Organization [facility] Address [address] [place] [address]- Care Team Providers Care Talk Show Host Name Role Phone Jay Aldridge Primary Care Physician Encounter [facility] Date(s): 11/13/20 - 12/13/20 [facility] [address] [place], [place] [address] Attending Physician: Yousif Cox Admitting Physician: AdmtrYousif [...] 11/11/18 14:30:44 EDT, Route to Pharmacy Electronically, [id number], [id number] Start Date: 11/11/18 Status: Ordered Dilaudid [...] Maintenance, :06:25 EDT, Route to Pharmacy Electronically, [id number], [id number] Start Date: 12/03/18 Status: Ordered ibuprofen 600 mg oral tablet 600 mg, 1, tablet, By Mouth, Every 6 hours, # 50 tablet, Refills 0, Tot. Refills 0, Maintenance, 01/18/19 6:54:06 EST, Route to Pharmacy Electronically, [id number], [id number] Start Date: 01/18/19 Status: Ordered oxyCODONE 5 [...] 11/11/18 14:30:48 EDT, Route to Pharmacy Electronically, [id number], [facility]/pharmacy #[id number] Tablet Start Date: 11/11/18 Status: Ordered [...] of delivery(Confirmed) 2014 Active Nephrolithiasis(Confirmed) Active Uses [place] Islander as primary spok en language(Confirmed) Active H/O Renal lithiasis(Confirmed) 12/18/11 Active Social History Social History Type Response Smoking Status Never smoker entered on: 01/02/14 Sex Female
== END 2023-01-29 15:41 | disposition home or self-care (01) ==
LOC: HO.HUSH 14:27
PROVIDERS: PCP Physician Assistant; Visit Provider Urology
DX: N20.0 Calculus of kidney (principal); N23 Unspecified renal colic
CPT/HCPCS: 99214

== ENCOUNTER → 2023-01-29 14:27 | Outpatient (BNVA) | payer MEDICAID, SELFPAY | PROVIDERS: PCP Physician Assistant; Visit Provider Urology ==